=== PATIENT | male | born 1950 | race Caucasian/White ===

== ENCOUNTER 2018-04-27 16:57 | Emergency (ER) | payer OTHER ==
--- OUTSIDE RECORDS SUMMARY | 2018-04-27 17:00 | XMS REPORT | Clinical Summary ---
:1950 Author Organization [facility] Address [address] [place] [address] Care Team Providers Name Role Phone Asked, No Pcp Primary Care Provider Unavailable Allergies No Known Allergies Medications Medication Sig Dispensed Refills Start Date End Date Status aspirin 81 mg Chew 81 mg 0 Active chewable tablet nightly. atorvastatin Take 10 mg by 0 Active (LIPITOR) 10 MG mouth nightly. tablet INVOKANA 100 mg Take 100 mg by 0 10/24/2017 Active tablet tablet mouth daily. gabapentin Take 300 mg by 0 12/11/2017 Active (NEURONTIN) 300 mg mouth 2 (two) capsule times a day. glipiZIDE Take 10 mg by 1 11/20/2017 Active (GLUCOTROL) 10 MG mouth 2 (two) tablet times a day. NIFEdipine CC Take 60 mg by 2 11/02/2017 Active (ADALAT CC) 60 MG mouth daily. 24 hr tablet ramipril (ALTACE) Take 10 mg by 3 10/23/2017 Active 10 MG capsule mouth nightly. sulfamethoxazole-tr Take 1 tablet 3 11/02/2017 Active imethoprim (BACTRIM by mouth 2 SS) 400-80 mg per (two) times a tablet day. insulin GLARGINE Inject 50 0 08/25/2008 Active (LANTUS U-100 Units under INSULIN) 100 the skin 2 unit/mL injection (two) times a (vial) day. insulin lispro Inject 18 0 05/09/2016 Active (HumaLOG KwikPen Units under Insulin) 100 the skin 3 unit/mL injection (three) times pen a day with meals. carvedilol (COREG) Take 25 mg by 3 11/20/2017 12/22/2017 Discontinued 25 MG tablet mouth 2 (two) times a day. carvedilol (COREG) Take 12.5 mg 0 12/22/2017 Discontinued 12.5 MG tablet by mouth 2 (two) times a day. lisinopril Take 10 mg by 0 05/07/2015 12/20/2017 Discontinued (PRINIVIL,ZESTRIL) mouth daily. 10 mg tablet minocycline Take 1 capsule 6 capsule 0 12/22/2017 12/25/2017 (MINOCIN,DYNACIN) (100 mg total) 100 MG capsule by mouth 2 (two) times a day for 6 doses. traMADol (ULTRAM) Take 1 tablet 30 tablet 0 12/22/2017 12/29/2017 50 mg tablet (50 mg total) by mouth every 6 (six) hours as needed for moderate pain for up to 30 doses. carvedilol (COREG) Take 1 tablet 60 tablet 0 12/22/2017 01/21/2018 12.5 MG tablet (12.5 mg total) by mouth 2 (two) times a day for 30 days. Active Problems Problem Noted Date Bradycardia 12/19/2017 Essential hypertension 12/19/2017 Lymphedema of lower extremity 12/19/2017 Bradycardia, drug induced 12/19/2017 Encounters Date Type Specialty Care Team Description 12/21/2017 Surgery Procedural Mir Prakash Insertion Permanent Cardiology , Pacemaker [90159 (CPT)] 12/19/2017 - Hospital Encounter Cardiology Cecilio Bradycardia (Primary Dx); 12/22/2017 Erika O. Sr., Essential hypertension; Lymphedema of both lower extremities; Bradycardia, drug induced 12/19/2017 Intake Access N/A after 04/26/2017 Immunizations Name Dates Previously Given Next Due FLUCELVAX QUAD PF (0.5mL syringe) 12/22/2017 Social History Tobacco Use Types Packs/Day Years Used Date Never Assessed Sex Assigned at Date Recorded Not on file Job Start Date Occupation Industry Not on file Not on file Not on file Travel History Travel Start Travel End No recent travel history available. Last Filed Vital Signs Vital Sign Reading Time Taken Blood Pressure 134/79 12/22/2017 12:29 PM CDT Pulse 70 12/22/2017 12:29 PM CDT Temperature 36 C (96.8 F) 12/22/2017 11:54 AM CDT Respiratory Rate 16 12/22/2017 11:54 AM CDT Oxygen Saturation 93% 12/22/2017 11:54 AM CDT Inhaled Oxygen Concentration - - Weight 166 kg (365 lb) 12/22/2017 5:47 AM CDT Height 180.3 cm (5' 11") 12/19/2017 8:12 PM CDT Body Mass Index 50.91 12/22/2017 5:47 AM CDT Plan of Treatment Health Maintenance Due Date Last Done Comments COLON CANCER SCREENING 2002 SHINGLES VACCINES (1 of 2) 2002 PNEUMOCOCCAL POLYSACCHARIDE VACCINE AGE 65 AND OVER 2017 PNEUMOCOCCAL-13 2017 INFLUENZA VACCINE Completed 12/22/2017 Implants Implanted Type Area Agricultural Equipment Mechanic Device Shelf Model / Identifier Expiration Serial / Date Lot [place] Xt Mri - [id number] Cardiac N/A: [employer] [facility] [id number] / Implanted: 12/21/2017 (Quantity not on file) Pacemaker N/A [employer] / Generators Lead, Pacemaker Atrial And Ventricular 58 Centimeter Capsure Fix Novus System - [id number] Cardiac Pacing N/A: [employer] [facility] 09/25/2019 [id number] / Implanted: 12/21/2017 (Quantity not on file) Leads or N/[employer] [id number] / Electrodes or [id number] Accessories Lead, Pacemaker Bipolar Fix Forming Atrial And Ventricular Steroid Eluting 52 Centimeter Capsure Fix Novus - [id number] Cardiac Pacing N/A: [employer] [facility] 11/01/2019 [id number] / Implanted: 12/21/2017 (Quantity not on file) Leads or N/A [employer] [id number] / Electrodes or [id number] Accessories Procedures Procedure Name Priority Date/Time Associated Comments Diagnosis POC GLUCOSE Routine 12/22/2017 7:47 Results for this AM CDT procedure are in the results section. POC GLUCOSE Routine 12/22/2017 6:55 Results for this AM CDT procedure are in the results section. ECG PRE/POST OP Routine 12/22/2017 6:53 Results for this AM CDT procedure are in the results section. HC COMPLETE BLD COUNT Routine 12/22/2017 5:10 Results for this W/AUTO DIFF AM CDT procedure are in the results section. ESTIMATED GFR Routine 12/22/2017 4:00 Results for this AM CDT procedure are in the results section. BASIC METABOLIC PANEL Routine 12/22/2017 4:00 Results for this AM CDT procedure are in the results section. POC GLUCOSE Routine 12/21/2017 10:03 Results for this PM CDT procedure are in the results section. POC GLUCOSE Routine 12/21/2017 6:06 Results for this PM CDT procedure are in the results section. XR CHEST 1 VW PORTABLE Routine 12/21/2017 4:30 Results for this PM CDT procedure are in the results section. ECG 12-LEAD STAT 12/21/2017 4:12 Results for this PM CDT procedure are in the results section. POC GLUCOSE Routine 12/21/2017 3:46 Results for this PM CDT procedure are in the results section. EP INSERTION PACEMAKER Routine 12/21/2017 3:06 Results for this PULSE GENERATOR PM CDT procedure are in the results section. POC GLUCOSE Routine 12/21/2017 1:05 Results for this PM CDT procedure are in the results section. POC GLUCOSE Routine 12/21/2017 7:22 Results for this AM CDT procedure are in the results section. HC COMPLETE BLD COUNT Routine 12/21/2017 4:15 Results for this W/AUTO DIFF AM CDT procedure are in the results section. ESTIMATED GFR Routine 12/21/2017 4:00 Results for this AM CDT procedure are in the results section. BASIC METABOLIC PANEL Routine 12/21/2017 4:00 Results for this AM CDT procedure are in the results section. POC GLUCOSE Routine 12/20/2017 8:56 Results for this PM CDT procedure are in the results section. POC GLUCOSE Routine 12/20/2017 4:59 Results for this PM CDT procedure are in the results section. POC GLUCOSE Routine 12/20/2017 12:11 Results for this PM CDT procedure are in the results section. ECHOCARDIOGRAM 2D Routine 12/20/2017 10:13 Results for this COMPLETE W MMODE AM CDT procedure are in SPECTRAL COLOR DOPPLER the results (03105) section. US DUPLEX VENOUS LOWER Routine 12/20/2017 9:05 Results for this EXTREMITY BILATERAL AM CDT procedure are in the results section. US CAROTID DUPLEX Routine 12/20/2017 8:23 Results for this BILATERAL AM CDT procedure are in the results section. ECG 12-LEAD Routine 12/20/2017 6:03 Results for this AM CDT procedure are in the results section. HC COMPLETE BLD COUNT Routine 12/20/2017 4:30 Results for this W/AUTO DIFF AM CDT procedure are in the results section. TROPONIN Routine 12/20/2017 4:00 Results for this AM CDT procedure are in the results section. ESTIMATED GFR Routine 12/20/2017 4:00 Results for this AM CDT procedure are in the results section. T4, FREE Routine 12/20/2017 4:00 Results for this AM CDT procedure are in the results section. THYROID STIMULATING Routine 12/20/2017 4:00 Results for this HORMONE AM CDT procedure are in the results section. LIPID PANEL Routine 12/20/2017 4:00 Results for this AM CDT procedure are in the results section. BASIC METABOLIC PANEL Routine 12/20/2017 4:00 Results for this AM CDT procedure are in the results section. URINALYSIS SCREEN AND Routine 12/19/2017 9:45 Results for this MICROSCOPY, WITH REFLEX PM CDT procedure are in TO CULTURE the results section. URINE CULTURE Routine 12/19/2017 9:45 Results for this PM CDT procedure are in the results section. TROPONIN Routine 12/19/2017 8:45 Results for this PM CDT procedure are in the results section. HEMOGLOBIN A1C Routine 12/19/2017 8:45 Results for this PM CDT procedure are in the results section. POC GLUCOSE Routine 12/19/2017 7:28 Results for this PM CDT procedure are in the results section. after 04/26/2017 Results POC glucose (12/22/2017 7:47 AM CDT)Only the most recent of11 resultswithin the time period is included. POC glucose 125 (H) 65 - 99 mg/dL [facility] DEPARTMENT OF PATHOLOGY AND Comment: GENOMIC MEDICINE [facility] Notified RN Meter ID: [id number] Credit Charge Authorizer: Darryl Rawls Performing Organization Address City/State/Zipcode Phone Number [facility] DEPARTMENT OF PATHOLOGY AND [address] [place] [address] [facility] ECG Pre/Post Op-Tomorrow (12/22/2017 6:53 AM CDT) Ventricular rate 70 [facility] Atrial rate 70 [facility] SD interval 196 [facility] QRSD interval 92 [facility] QT interval 426 [facility] QTC interval 460 [facility] P axis 1 50 [facility] QRS axis 1 16 [facility] T wave axis 64 [facility] EKG impression Normal sinus rhythm-Cannot rule out Anterior [facility] MUSE infarct , age undetermined-Abnormal ECG-In automated comparison with ECG of 21-DEC-2017 16:12,-Sinus rhythm has replaced Atrial flutter- Performing Organization Address City/State/Zipcode Phone Number [facility] MUSE [address] [place] [address] CBC with platelet and differential (12/22/2017 5:10 AM CDT)Only the most recent of3 resultswithin the time period is included. WBC 10.97 4.50 - 11.00 k/uL [facility] DEPARTMENT OF PATHOLOGY AND GENOMIC MEDICINE RBC 4.94 4.40 - 6.00 m/uL [facility] DEPARTMENT OF PATHOLOGY AND GENOMIC MEDICINE HGB 12.9 (L) 14.0 - 18.0 g/dL [facility] DEPARTMENT OF PATHOLOGY AND GENOMIC MEDICINE HCT 41.9 41.0 - 51.0 % [facility] DEPARTMENT OF PATHOLOGY AND GENOMIC MEDICINE MCV 84.8 82.0 - 100.0 fL [facility] DEPARTMENT OF PATHOLOGY AND GENOMIC MEDICINE MCH 26.1 (L) 27.0 - 34.0 pg [facility] DEPARTMENT OF PATHOLOGY AND GENOMIC MEDICINE MCHC 30.8 (L) 31.0 - 37.0 g/dL [facility] DEPARTMENT OF PATHOLOGY AND GENOMIC MEDICINE RDW - SD 43.4 37.0 - 55.0 fL [facility] DEPARTMENT OF PATHOLOGY AND GENOMIC MEDICINE MPV 8.7 (L) 8.8 - 13.2 fL [facility] DEPARTMENT OF PATHOLOGY AND GENOMIC MEDICINE Platelet count 248 150 - 400 k/uL [facility] DEPARTMENT OF PATHOLOGY AND GENOMIC MEDICINE Nucleated RBC 0.00 /100 WBC [facility] DEPARTMENT OF PATHOLOGY AND GENOMIC MEDICINE Neutrophils 71.0 (H) 39.0 - 69.0 % [facility] DEPARTMENT OF PATHOLOGY AND GENOMIC MEDICINE Lymphocytes 16.4 (L) 25.0 - 45.0 % [facility] DEPARTMENT OF PATHOLOGY AND GENOMIC MEDICINE Monocytes 8.5 0.0 - 10.0 % [facility] DEPARTMENT OF PATHOLOGY AND GENOMIC MEDICINE Eosinophils 3.3 0.0 - 5.0 % [facility] DEPARTMENT OF PATHOLOGY AND GENOMIC MEDICINE Basophils 0.5 0.0 - 1.0 % [facility] DEPARTMENT OF PATHOLOGY AND GENOMIC MEDICINE Immature granulocytes 0.3Comment: 0.0 - 1.0 % [facility] DEPARTMENT OF "Immature PATHOLOGY AND GENOMIC granulocytes" MEDICINE (promyelocytes, myelocytes, metamyelocytes) Specimen Blood Performing Organization Address City/[facility] Phone Number [facility] DEPARTMENT OF PATHOLOGY AND [address] [place] [phone] Perfect [facility] Estimated GFR (12/22/2017 4:00 AM CDT)Only the most recent of3 resultswithin the time period is included. Estimated GFR >=90 mL/min/1.73 m2 [facility] DEPARTMENT OF Comment: PATHOLOGY AND GENOMIC CatergoryUnitsInterpretation MEDICINE G1 >=90 Normal or high G2 60-89Mildly decreased V5v66-27Yovfjm to moderately decreased A3j41-60Zazjqcwvuf to severely decreased G4 15-29Severely decreased G5 <15Kidney failure The eGFR was calculated using the Chronic Kidney Disease Epidemiology Collaboration (CKD-EPI) equation. Interpretation is based on recommendations of the National Kidney Foundation-Kidney Disease Outcomes Quality Initiative (NKF-KDOQI) published in 2014. Specimen Plasma specimen Performing Organization Address [facility] Phone Number [facility] DEPARTMENT OF PATHOLOGY AND [address] [place] [phone] [facility] Basic metabolic panel (12/22/2017 4:00 AM CDT)Only the most recent of3 resultswithin the time period is included. Sodium 137 135 - 148 mEq/L [facility] DEPARTMENT OF PATHOLOGY AND GENOMIC MEDICINE Potassium 4.3 3.5 - 5.0 mEq/L [facility] DEPARTMENT OF PATHOLOGY AND GENOMIC MEDICINE Chloride 97 (L) 98 - 112 mEq/L [facility] DEPARTMENT OF PATHOLOGY AND GENOMIC MEDICINE CO2 26 24 - 31 mEq/L [facility] DEPARTMENT OF PATHOLOGY AND GENOMIC MEDICINE Anion gap 14@ANIO 7 - 15 mEq/L [facility] DEPARTMENT OF PATHOLOGY AND GENOMIC MEDICINE BUN 11 8 - 23 mg/dL [facility] DEPARTMENT OF PATHOLOGY AND GENOMIC MEDICINE Creatinine 0.80 0.70 - 1.20 mg/dL [facility] DEPARTMENT OF PATHOLOGY AND GENOMIC MEDICINE Glucose 105 (H) 65 - 99 mg/dL [facility] DEPARTMENT OF PATHOLOGY AND GENOMIC MEDICINE Calcium 9.1 8.8 - 10.2 mg/dL [facility] DEPARTMENT OF PATHOLOGY AND GENOMIC MEDICINE Specimen Plasma specimen Performing Organization Address City/[facility] Phone Number [facility] DEPARTMENT OF PATHOLOGY AND [address] [place] [phone] GENOMIC MEDICINE XR Chest 1 Vw Portable (12/21/2017 4:30 PM CDT) Narrative Performed At EXAMINATION:XR CHEST 1 VW PORTABLE [facility] CLINICAL HISTORY:Pneumothorax COMPARISON:None. IMPRESSION: 1.A left subclavian dual-lead pacemaker is present. There is no evidence of pneumothorax. 2.The heart is moderately enlarged. The aorta is atherosclerotic. 3.There is no evidence of pulmonary edema. There are no focal consolidations or effusions. 4.Postoperative changes are present at the cervical thoracic junction. [facility]-[id number] Procedure Note Hm Interface, Radiology Results Incoming - 12/21/2017 4:35 PM CDT EXAMINATION: XR CHEST 1 VW PORTABLE CLINICAL HISTORY: Pneumothorax COMPARISON: None. IMPRESSION: 1. A left subclavian dual-lead pacemaker is present. There is no evidence of pneumothorax. 2. The heart is moderately enlarged. The aorta is atherosclerotic. 3. There is no evidence of pulmonary edema. There are no focal consolidations or effusions. 4. Postoperative changes are present at the cervical thoracic junction. [facility]-[id number] Performing Organization Address [facility] Phone Number [facility] [address] [place] [address] ECG 12 lead (12/21/2017 4:12 PM CDT)Only the most recent of2 resultswithin the time period is included. Ventricular rate 67 [facility] Atrial rate 250 [facility] QRSD interval 90 [facility] QT interval 418 [facility] QTC interval 441 [facility] P axis 1 48 [facility] QRS axis 1 22 [facility] T wave axis 57 [facility] EKG impression Atrial flutter-Abnormal ECG-In automated [facility] MUSE comparison with ECG of 20-DEC-2017 06:03,-Atrial flutter has replaced Sinus rhythm- Performing Organization Address [facility] Phone Number [facility] MUSE [address] [place] [address] Cv electrophysiology procedure (12/21/2017 3:06 PM CDT) Narrative Performed At TITLE OF PROCEDURE: CUPID Dual-chamber pacemaker placement. PREOPERATIVE DIAGNOSES: 1.Symptomatic bradycardia. 2.Morbid obesity. 3.Presyncope and dizziness secondary to #1. POSTOPERATIVE DIAGNOSES: 1.Symptomatic bradycardia. 2.Morbid obesity. 3.Presyncope and dizziness secondary to #1. PROCEDURES PERFORMED: 1.IV conscious sedation. 2.Cardiac fluoroscopy. 3.Left upper extremity venogram. 4.Dual-chamber pacemaker placement. BRIEF HISTORY AND CLINICAL BACKGROUND: This is a 67-year-old man who has profound weakness and dizziness and near syncope.He went to an emergency room where he was documented to have a heart rate in the 30s.He is on no offending medications.He was transferred to [facility] and Dr. Sullivan has asked me to place a pacemaker. PROCEDURE: Informed consent was obtained.Intravenous antibiotics were infused appropriately.The chest was prepped and draped in the usual sterile fashion and local anesthesia was achieved with 1% lidocaine.An upper extremity venogram was performed to identify the location of the axillary and subclavian vein and access was achieved.Guide wires were introduced under fluoroscopic guidance and advanced into the inferior vena cava. Using a sharp knife, cautery, and blunt dissection, a pocket was formed below the plane of the pectoralis fascia.The RV and atrial leads were placed into the venous system using standard technique.The RV pace/sense lead was placed into the RV apex and tested.After the thresholds were deemed adequate the lead was anchored in place.Maximum output pacing was performed to ensure that there was no diaphragmatic stimulation, and none was seen.The lead was anchored in place using 0-Ethibond sutures around the lead collar. A bipolar screw-in lead was affixed into the right atrium.Sensing and pacing thresholds were then performed.After they were found to be adequate, maximum output pacing was performed to ensure that there was no diaphragmatic stimulation, and none was seen.The lead was anchored in place using 0-Ethibond sutures around the lead collar. Fluoroscopy was repeated to ensure proper lead placement.The pacemaker pocket was visually, manually, and radiographically inspected to ensure there were no gauze or sponges in the pocket.It was then washed using antibiotic solution. Gloves and drapes were changed as needed.The pacemaker generator packet was then opened and was attached to the leads and the set screws were tightened. Each lead was gently tugged upon to ensure it was affixed within the header. After proper pacemaker function was confirmed, the lead slack and pacemaker were placed in the pocket.The pacemaker was anchored to the pectoralis muscle using 0-Ethibond suture.The skin incision was then closed in layers using 0-Vicryl sutures.Final skin closure was achieved with stainless steel joshua and skin adhesive. COMPLICATIONS: None. FINDINGS: 1.The pacemaker is a Medtronic [place]-XT model [id number], serial #[id number]. 2.The right atrial lead is a Medtronic 5076, serial #[id number], measured P-waves 2.4 mV, pacing threshold 1 V at 0.5 msec, current 2.7 mA, impedance 580 ohms. 3.The ventricular lead is a Medtronic 5076, serial #[id number], measured R-waves 14 mV, pacing threshold 0.5 V, current 1.4 mA, impedance 679 ohms. ESTIMATED BLOOD LOSS: Less than 10 mL SEDATION: IV conscious sedation. MEDICATIONS: 1.Versed. 2.Fentanyl. CONCLUSIONS: Successful dual-chamber pacemaker placement. RECOMMENDATIONS: IV antibiotics at home per Dr. Sullivan and Dr. Mena. Performing Organization Address City/State/Zipcode Phone Number [employer] [address] [place] [address] Echocardiogram complete w contrast and 3D if needed (12/20/2017 10:13 AM CDT) Narrative Performed At [facility] Echocardiography Report [address] [place] [address] Pat.Name:MARC TOLLIVER [facility].ID:[id number] .Date: 12/20/2017 Refer.MD:ERIKA MENA MD Exam Time: 9:02:00 AMStudy Type:Routine Echo Height:71inWeight: 377lb BSA: 2.76 m2 DOBAge:1950,67Y Sex: MALEBP:173/82 Sonogrphr: DOMINIC MARIE, RDMARILU, LAUREN/Lexa Chance MD Pat. Stat.:Inpatient Study Status:Final Echo Event ID:[id number] Order ID:[id number] Reason for Study:SOB, suspected cardiac etiology Procedures:2D Echo, Colorflow Doppler, Intravenous Definity Contrast Race: SUMMARY: Normal biventricular chamber size and systolic function Diastolic dysfunction Grade II (Moderate): Impaired relaxation with elevated LV filling pressures. No hemodynamically significant valvular pathology. Estimated PA systolic pressure is 38 mmHg, assuming a mean RAP of 5 mmHg. FINDINGS: LV: LV size is normal. LV EF is normal. Overall wall motion is normal.Estimated EF is 60-64%. RV: RV size is normal. RV systolic function is normal. LA: LA size is normal. RA: RA size is normal. AO: Aortic root diameter is normal. RAYRAY: No pericardial effusion. There is an anterior space consistentwith a prominent epicardial fat pad. AV: No structural AV abnormalities noted. MV: Thickened and/or calcified mitral annulus. PV: Pulmonic valve not well seen. Mild pulmonic regurgitation. TV: No structural TV abnormalities noted. [place]: Diastolic dysfunction Grade II (Moderate): Impaired relaxationwith elevated LV filling pressures. Other:Estimated PA systolic pressure is 38 mmHg, assuming a mean RAPof 5 mmHg. MEASUREMENTS: 2D Parasternal [place] LVOT 2 cmIVSd 1.2 cm Ao An1.9 cmLVPWd1.2 cm Ao Rtd 3.2 cmIndex1.2 cm/m LV Kkdi286 g(122-174) LVIDd5.4 cmIndex2 cm/m LVM Index 97.1 g/m2 LVIDs3.6 cmRWT0.4 LV%fs 32.8 % LA Sng Plane LA Area 24.7 cm2(8.8-23.4) LA Vol80.5 ml Index29.2 ml/m LA LngAx 6.4 cm DOPPLER LVOT Stroke Vol LVOT 2 cmLVOT CO4.4 l/min LVOT TVI23.5 cmLVOT CI1.6 l/m/m2 LVOT Tm371 inwwCC69 bpm LVOT SV 73.8 ml Signed 12/20/2017 10:56 AM Tatiana Zaman MD Procedure Note Interface, Radiology Results In - 12/20/2017 10:57 AM CDT Echocardiography Report [address] [address], [place] [address] Pat.Name: MARC TOLLIVER Pat.ID: [id number] .Date: 12/20/2017 Refer.MD: ERIKA MENA MD Exam Time: 9:02:00 AM Study Type:Routine Echo Height: 71in Weight: 377lb BSA: 2.76 m2 Age: 14 1950,67Y Sex: MALE BP: 173/82 Sonogrphr: DOMINIC MARIE, RD, LAUREN/Lexa Chance MD Pat. Stat.:Inpatient Study Status:Final Echo Event ID:[id number] Order ID: [id number] Reason for Study:SOB, suspected cardiac etiology Procedures:2D Echo, Colorflow Doppler, Intravenous Definity Contrast Race: SUMMARY: Normal biventricular chamber size and systolic function Diastolic dysfunction Grade II (Moderate): Impaired relaxation with elevated LV filling pressures. No hemodynamically significant valvular pathology. Estimated PA systolic pressure is 38 mmHg, assuming a mean RAP of 5 mmHg. FINDINGS: LV: LV size is normal. LV EF is normal. Overall wall motion is normal. Estimated EF is 60-64%. RV: RV size is normal. RV systolic function is normal. LA: LA size is normal. RA: RA size is normal. AO: Aortic root diameter is normal. RAYRAY: No pericardial effusion. There is an anterior space consistent with a prominent epicardial fat pad. AV: No structural AV abnormalities noted. MV: Thickened and/or calcified mitral annulus. PV: Pulmonic valve not well seen. Mild pulmonic regurgitation. TV: No structural TV abnormalities noted. [place]: Diastolic dysfunction Grade II (Moderate): Impaired relaxation with elevated LV filling pressures. Other: Estimated PA systolic pressure is 38 mmHg, assuming a mean RAP of 5 mmHg. MEASUREMENTS: 2D Parasternal Long [place] LVOT 2 cm IVSd 1.2 cm Ao An 1.9 cm LVPWd 1.2 cm Ao Rtd 3.2 cm Index 1.2 cm/m LV Mass 268 g (122-174) LVIDd 5.4 cm Index 2 cm/m LVM Index 97.1 g/m2 LVIDs 3.6 cm RWT 0.4 LV%fs 32.8 % LA Sng Plane LA Area 24.7 cm2 (8.8-23.4) LA Vol 80.5 ml Index 29.2 ml/m LA LngAx 6.4 cm DOPPLER LVOT Stroke Vol LVOT 2 cm LVOT CO 4.4 l/min LVOT TVI 23.5 cm LVOT CI 1.6 l/m/m2 LVOT Tm 371 msec HR 59 bpm LVOT SV 73.8 ml Signed 12/20/2017 10:56 AM Tatiana Zaman MD Performing Organization Address City/State/Zipcode Phone Number [facility] [address] [place] [address] Pv duplex venous lower extremity (12/20/2017 9:05 AM CDT) Narrative Performed At [facility] Vascular Ultrasound Laboratory Lower Extremity Venous Report [id number] [address] [facility].Name:MARC TOLLIVER [id number] .Date: 12/20/2017 Refer.MD:TATIANA SULLIVAN MD Exam Time: 8:26:00 AMStudy Type:LE Venous Height:71inWeight: 377lb BSA: 2.76 m2 DOBAge:1950,67Y Sex: MALEBP:176/89 Sonogrphr: Nishi Jewell RDCS, RVT Pat. Stat.:Inpatient Room:[facility] ATapeVol: ED, CPT - 4: 35801 Echo Event ID:[id number] Order ID:[id number] Reason for Study:Leg edema History / Clinical:Obesity, Lymphedema, Colon Ca, S/p resection, H/o left legvein excision 1979, HTN, HLD, DM Procedures:Colorflow, Grayscale/2D, Pulsed wave Doppler Race:C SUMMARY: * Normal Reflux Criteria:< 0.5 seconds * Abnormal Reflux Criteria:> or equal to 0.5 seconds DUPLEX SCAN OBSERVATIONS Deep VeinsSuperficial Veins RightLeft RightLeft GSV (prox) NormalSurgically Removed CFV Normal Normal (above knee) Femoral Normal Normal GSV (dist) Normal Surgically Removed Profunda Normal Normal (below knee) Popliteal Normal Normal PT (prox) Normal NormalSSV Chronic partial Not Visualized PT (dist) Normal Normal Peroneal Not Visualized Normal RIGHT:There is a bright strand in the small saphenous vein with Colorflow and Doppler signals present. There is normal compressibility with no evidence of echogenic material noted within the lumen of the remaining visualized veins. LEFT: There is normal compressibility with no evidence of echogenic material noted within the lumen of the visualized veins. Colorflow and Doppler signals are normal. PRELIMINARY FINDINGS 1. Chronic partial superficial venous thrombosis of the right small saphenous vein. 2. The results were reported to CHRIS Hudson @9:15 am PHYSICIAN INTERPRETATION Venous examination of the both lower extremities demonstrated chronic partial superficial venous thrombosis of the right small saphenous vein. Signed 12/20/2017 12:04 PM Braulio Hall MD, RPVI Procedure Note Interface, Radiology Results In - 12/20/2017 12:04 PM CDT Vascular Ultrasound Laboratory Lower Extremity Venous Report [address] [place] [address] Pat.Name: MARC TOLLIVER Pat.ID: [id number] .Date: 12/20/2017 Refer.MD: TATIANA SULLIVAN MD Exam Time: 8:26:00 AM Study Type:LE Venous Height: 71in Weight: 377lb BSA: 2.76 m2 Age: 14 1950,67Y Sex: MALE BP: 176/89 Sonogrphr: Nishi Jewell RDCS, RVT Pat. Stat.:Inpatient Room: [facility] Vol: ED, CPT - 4: 94406 Echo Event ID:[id number] Order ID: [id number] Reason for Study:Leg edema History / Clinical:Obesity, Lymphedema, Colon Ca, S/p resection, H/o left leg vein excision 1978, HTN, HLD, DM Procedures:Colorflow, Grayscale/2D, Pulsed wave Doppler Race: C SUMMARY: * Normal Reflux Criteria: < 0.5 seconds * Abnormal Reflux Criteria: > or equal to 0.5 seconds DUPLEX SCAN OBSERVATIONS Deep Veins Superficial Veins Right Left Right Left GSV (prox) Normal Surgically Removed CFV Normal Normal (above knee) Femoral Normal Normal GSV (dist) Normal Surgically Removed Profunda Normal Normal (below knee) Popliteal Normal Normal PT (prox) Normal Normal SSV Chronic partial Not Visualized PT (dist) Normal Normal Peroneal Not Visualized Normal RIGHT: There is a bright strand in the small saphenous vein with Colorflow and Doppler signals present. There is normal compressibility with no evidence of echogenic material noted within the lumen of the remaining visualized veins. LEFT: There is normal compressibility with no evidence of echogenic material noted within the lumen of the visualized veins. Colorflow and Doppler signals are normal. PRELIMINARY FINDINGS 1. Chronic partial superficial venous thrombosis of the right small saphenous vein. 2. The results were reported to CHRIS Hudson @9:15 am PHYSICIAN INTERPRETATION Venous examination of the both lower extremities demonstrated chronic partial superficial venous thrombosis of the right small saphenous vein. Signed 12/20/2017 12:04 PM Braulio Hall MD, RPVI Performing Organization Address City/State/Zipcode Phone Number [facility] [address] [place] [address] Pv carotid duplex (12/20/2017 8:23 AM CDT) Narrative Performed At [facility] Vascular Ultrasound Laboratory Carotid Artery Duplex Report [address] [place] [address] For construction quality control manager purposes, the categorization of the degree of the stenosis of this exam is based on criteria described in the IAC carotid stenosis grading white paper( www.intersocietal.org/Vascular) and Lauri Barba, Gael Richardson, et al. Carotid artery stenosis: pool-scale and Doppler US diagnosis--Society of Radiologists in Ultrasound Consensus Conference. Radiology. 2003 Jan; 229(2):340-6. Pat.Name:MARC TOLLIVER [facility]:[id number] .Date: 12/20/2017 Refer.MD:TATIANA SULLIVAN MD Exam Time: 7:44:00 AMStudy Type:Carotid Height:71inWeight: 377lb BSA: 2.76 m2 DOBAge:1950,67Y Sex: MALEBP:176/89 Sonogrphr: Nishi Jewell RDCS, RVT Pat. Stat.:Inpatient Room:[facility] ATapeVol: ED, CPT - 4: 76682 Echo Event ID:[id number] Order ID:[id number] Reason for Study:Dizziness History / Clinical:Obesity, Lymphedema, Colon Ca, S/p resection, H/o left legvein excision 1979, HTN, HLD, DM Procedures:Colorflow, Grayscale/2D, Pulsed wave Doppler Race:C SUMMARY: PHYSICAL ASSESSMENT BloodPulsesCarotid Pressure Carotid TemporalBruit Right IV ++0 Left 176/89 ++0 CAROTID ARTERY SCAN RIGHT:There is smooth intimal lining in the common carotid artery. There is focal hard plaque noted in the bulb. The internal and external carotid artery is clear. LEFT: There is smooth intimal lining in the common carotid artery. There is focal hard plaque noted in the bulb extending into the proximal internal carotid artery. The external carotid artery is clear. PRELIMINARY FINDINGS 1. Non-stenotic plaque in the rightbulb. 2. <50%stenosis in the bulb and left internal carotid artery. 3. Antegrade vertebral artery flow bilaterally. PHYSICIAN INTERPRETATION Bilateral carotid duplex examination demonstrated atherosclerotic plaques in the bulbs. Less than 50% stenosis in the bulb and internal carotid artery, bilaterally. Both vertebral arteries are antegrade. Carotid Findings:RightLeft Verteb.Flw AntegradeAntegrade Subclavian TriphasicTriphasic MEASUREMENTS: DOPPLER Left CCA Dist CCA Dist PSV56.3 cm/sCCA Dist EDV12.3 cm/s Left CCA Mid CCA Mid PSV 63.3 cm/sCCA Mid EDV 12.9 cm/s Left CCA Prox CCA Prox PSV86.8 cm/sCCA Prox EDV14.1 cm/s Left ICA Dist ICA Dist PSV91.2 cm/Rehan Dist EDV35.6 cm/s Left ICA Mid ICA Mid PSV 83.9 cm/Rehan Mid EDV 26.4 cm/s Left ICA Prox ICA Prox PSV66.8 cm/Rehan Prox EDV19.3 cm/s Left ECA Prox ECA Prox PSV76.8 cm/sECA Prox EDV6.45 cm/s Left SCA Prox SCA Prox PSV 112 cm/s Left Vertebral Vertebral PSV 44.2 cm/sVertebral EDV 19.2 cm/s Right CCA Dist CCA Dist PSV68 cm/sCCA Dist EDV10.6 cm/s Right CCA Mid CCA Mid PSV 69.8 cm/sCCA Mid EDV 12.9 cm/s Right CCA Prox CCA Prox PSV80.9 cm/sCCA Prox EDV11.7 cm/s Right ICA Dist ICA Dist PSV77.5 cm/Rehan Dist EDV20.1 cm/s Right ICA Mid ICA Mid PSV 72.2 cm/Rehan Mid EDV 21.8 cm/s Right ICA Prox ICA Prox PSV59.8 cm/Rehan Prox EDV19.9 cm/s Right ECA Prox ECA Prox PSV82.7 cm/sECA Prox EDV5.86 cm/s Right SCA Prox SCA Prox PSV 116 cm/s Right Vertebral Vertebral PSV 39.7 cm/sVertebral EDV 11.6 cm/s Right ICA/CCA Ratio ICA/CCA PSV0.857 Left ICA/CCA Ratio ICA/CCA PSV 1.06 Signed 12/21/2017 12:06 AM Braulio Hall MD, RPVI Procedure Note Interface, Radiology Results In - 12/21/2017 12:07 AM CDT Vascular Ultrasound Laboratory Carotid Artery Duplex Report [address] [place] [address] For construction quality control manager purposes, the categorization of the degree of the stenosis of this exam is based on criteria described in the IAC carotid stenosis grading white paper( www.intersocietal.org/Vascular) and Marysol Barba., Jesse RichardsonB., et al. Carotid artery stenosis: pool-scale and Doppler US diagnosis--Society of Radiologists in Ultrasound Consensus Conference. Radiology. 2003 Nov; 229(2):340-6. Pat.Name: MARC TOLLIVER Pat.ID: [id number] .Date: 12/20/2017 Refer.MD: TATIANA SULLIVAN MD Exam Time: 7:44:00 AM Study Type:Carotid Height: 71in Weight: 377lb BSA: 2.76 m2 Age: 14 1950,67Y Sex: MALE BP: 176/89 Sonogrphr: Nishi Jewell RDCS, RVT Pat. Stat.:Inpatient Room: [address] Vol: ED, CPT - 4: 89984 Echo Event ID:[id number] Order ID: [id number] Reason for Study:Dizziness History / Clinical:Obesity, Lymphedema, Colon Ca, S/p resection, H/o left leg vein excision 1979, HTN, HLD, DM Procedures:Colorflow, Grayscale/2D, Pulsed wave Doppler Race: C SUMMARY: PHYSICAL ASSESSMENT Blood Pulses Carotid Pressure Carotid Temporal Bruit Right IV + + 0 Left 176/89 + + 0 CAROTID ARTERY SCAN RIGHT: There is smooth intimal lining in the common carotid artery. There is focal hard plaque noted in the bulb. The internal and external carotid artery is clear. LEFT: There is smooth intimal lining in the common carotid artery. There is focal hard plaque noted in the bulb extending into the proximal internal carotid artery. The external carotid artery is clear. PRELIMINARY FINDINGS 1. Non-stenotic plaque in the right bulb. 2. <50% stenosis in the bulb and left internal carotid artery. 3. Antegrade vertebral artery flow bilaterally. PHYSICIAN INTERPRETATION Bilateral carotid duplex examination demonstrated atherosclerotic plaques in the bulbs. Less than 50% stenosis in the bulb and internal carotid artery, bilaterally. Both vertebral arteries are antegrade. Carotid Findings: Right Left Verteb.Flw Antegrade Antegrade Subclavian Triphasic Triphasic MEASUREMENTS: DOPPLER Left CCA Dist CCA Dist PSV 56.3 cm/s CCA Dist EDV 12.3 cm/s Left CCA Mid CCA Mid PSV 63.3 cm/s CCA Mid EDV 12.9 cm/s Left CCA Prox CCA Prox PSV 86.8 cm/s CCA Prox EDV 14.1 cm/s Left ICA Dist ICA Dist PSV 91.2 cm/s ICA Dist EDV 35.6 cm/s Left ICA Mid ICA Mid PSV 83.9 cm/s ICA Mid EDV 26.4 cm/s Left ICA Prox ICA Prox PSV 66.8 cm/s ICA Prox EDV 19.3 cm/s Left ECA Prox ECA Prox PSV 76.8 cm/s ECA Prox EDV 6.45 cm/s Left SCA Prox SCA Prox PSV 112 cm/s Left Vertebral Vertebral PSV 44.2 cm/s Vertebral EDV 19.2 cm/s Right CCA Dist CCA Dist PSV 68 cm/s CCA Dist EDV 10.6 cm/s Right CCA Mid CCA Mid PSV 69.8 cm/s CCA Mid EDV 12.9 cm/s Right CCA Prox CCA Prox PSV 80.9 cm/s CCA Prox EDV 11.7 cm/s Right ICA Dist ICA Dist PSV 77.5 cm/s ICA Dist EDV 20.1 cm/s Right ICA Mid ICA Mid PSV 72.2 cm/s ICA Mid EDV 21.8 cm/s Right ICA Prox ICA Prox PSV 59.8 cm/s ICA Prox EDV 19.9 cm/s Right ECA Prox ECA Prox PSV 82.7 cm/s ECA Prox EDV 5.86 cm/s Right SCA Prox SCA Prox PSV 116 cm/s Right Vertebral Vertebral PSV 39.7 cm/s Vertebral EDV 11.6 cm/s Right ICA/CCA Ratio ICA/CCA PSV 0.857 Left ICA/CCA Ratio ICA/CCA PSV 1.06 Signed 12/21/2017 12:06 AM Braulio Hall MD, RPVI Performing Organization Address [facility] Phone Number [facility] [address] [place] [address] Troponin (12/20/2017 4:00 AM CDT)Only the most recent of2 resultswithin the time period is included. Troponin <0.30 0.00 - 0.30 ng/mL [facility] DEPARTMENT OF PATHOLOGY Comment: AND GENOMIC MEDICINE 0.30 - 1.49 ng/mlMay indicate increased risk of acute coronary syndrome. >=1.5 ng/mlConsistent with acute myocardial infarction. The diagnostic value of a single normal or non-diagnostic result is questionable.Serial samples at 2-6 hour intervals are required to rule out acute myocardial injury. Specimen Plasma specimen Performing Organization Address [facility] Phone Number [facility] DEPARTMENT OF PATHOLOGY AND [address] [place] [address] GENOMIC MEDICINE Thyroid stimulating hormone (12/20/2017 4:00 AM CDT) TSH 1.98 0.27 - 4.20 uIU/mL [facility] DEPARTMENT OF PATHOLOGY AND GENOMIC MEDICINE Specimen Plasma specimen Performing Organization Address City/[facility] Phone Number [facility] DEPARTMENT OF PATHOLOGY AND [address] [place] [phone] [place] [address] T4, free (12/20/2017 4:00 AM CDT) T4, free 1.2 0.9 - 1.7 ng/dL [facility] DEPARTMENT OF PATHOLOGY AND GENOMIC MEDICINE Specimen Plasma specimen Performing Organization Address City/[facility] Phone Number [facility] DEPARTMENT OF PATHOLOGY AND [address] [place] [phone] [place] [address] Lipid panel (12/20/2017 4:00 AM CDT) Cholesterol 157 <200 mg/dL [facility] DEPARTMENT OF PATHOLOGY AND GENOMIC MEDICINE Triglycerides 132 <150 mg/dL [facility] DEPARTMENT OF PATHOLOGY AND GENOMIC MEDICINE HDL cholesterol 29 (L) >40 mg/dL [facility] DEPARTMENT OF PATHOLOGY AND GENOMIC MEDICINE LDL cholesterol 105 (H)Comment: Result <100 mg/dL [facility] DEPARTMENT OF obtained by direct LDL PATHOLOGY AND GENOMIC measurement MEDICINE Lipid panel interpretation SeeBelow [facility] DEPARTMENT OF Comment: PATHOLOGY AND GENOMIC Total Cholesterol (mg/dL) MEDICINE <200 Desirable 622-245Tsszitmlmk-epia >=240High Triglycerides (mg/dL) <150 Normal [id number]-udtx 200-499High >=500Very high HDL Cholesterol (mg/dL) <40Low (male) <40Low (female) LDL Cholesterol (mg/dL) <100 Optimal 100-129Near or above optimal 001-289Iwzgxvailv-xfsu 160-189High >=190Very high Risk Catergories that modify LDL goals. Risk CatergoriesLDL goal (mg/dL) CHD and CHD risk equivalent<100 (10-year risk >20%) Multiple (2+) risk factors <130 (10-year risk=<20%) 0-1 risk factors <160 (<10-year risk) Defining levels of lipids in metabolic syndrome Triglycerides>=150 mg/dL HDL Cholesterol Men<40 mg/dL Women<40 mg/dL Non-HDL cholesterol is a second target for therapy in persons with high triglycerides (>=200 mg/dL) Specimen Plasma specimen Performing Organization Address City/[facility] Phone Number [facility] DEPARTMENT OF PATHOLOGY AND [address] [place] [phone] [facility] Urinalysis screen and microscopy, with reflex to culture (12/19/2017 9:45 PM CDT) Specimen site Clean catch [facility] DEPARTMENT OF PATHOLOGY AND GENOMIC MEDICINE Color, UA Straw [facility] DEPARTMENT OF PATHOLOGY AND GENOMIC MEDICINE Appearance, UA Clear [facility] DEPARTMENT OF PATHOLOGY AND GENOMIC MEDICINE Specific gravity, UA 1.012 1.001 - 1.035 [facility] DEPARTMENT OF PATHOLOGY AND GENOMIC MEDICINE pH, UA 6.0 5.0 - 8.5 [facility] DEPARTMENT OF PATHOLOGY AND GENOMIC MEDICINE Protein, UA Negative Negative [facility] DEPARTMENT OF PATHOLOGY AND GENOMIC MEDICINE Glucose, UA 3+ (A) Negative [facility] DEPARTMENT OF PATHOLOGY AND GENOMIC MEDICINE Ketones, UA Negative Negative [facility] DEPARTMENT OF PATHOLOGY AND GENOMIC MEDICINE Bilirubin, UA Negative Negative [facility] DEPARTMENT OF PATHOLOGY AND GENOMIC MEDICINE Blood, UA Negative Negative [facility] DEPARTMENT OF PATHOLOGY AND GENOMIC MEDICINE Nitrite, UA Negative Negative [facility] DEPARTMENT OF PATHOLOGY AND GENOMIC MEDICINE Urobilinogen, UA 4.0 (A) <2.0 [facility] DEPARTMENT OF PATHOLOGY AND GENOMIC MEDICINE Leukocyte esterase, UA Negative Negative [facility] DEPARTMENT OF PATHOLOGY AND GENOMIC MEDICINE Epithelial cells, UA <1 /HPF [facility] DEPARTMENT OF PATHOLOGY AND GENOMIC MEDICINE WBC, UA <1 0 - 1 /HPF [facility] DEPARTMENT OF PATHOLOGY AND GENOMIC MEDICINE RBC, UA <1 0 - 5 /HPF [facility] DEPARTMENT OF PATHOLOGY AND GENOMIC MEDICINE Bacteria, UA Few None seen [facility] DEPARTMENT OF PATHOLOGY AND GENOMIC MEDICINE Yeast, UA None seen [facility] DEPARTMENT OF PATHOLOGY AND GENOMIC MEDICINE Yeast with pseudohyphae, UA None seen [facility] DEPARTMENT OF PATHOLOGY AND GENOMIC MEDICINE Specimen Urine Performing Organization Address City/[facility]/Zipcode Phone Number [facility] DEPARTMENT OF PATHOLOGY AND [address] [place] [phone] [facility] MEDICINE Urine culture (12/19/2017 9:45 PM CDT) Urine culture SEE COMMENTComment: Bacteriuria [facility] DEPARTMENT OF PATHOLOGY screen negative. AND GENOMIC MEDICINE Performing Organization Address City/[facility]/Zipcode Phone Number [facility] DEPARTMENT OF PATHOLOGY AND [address] [place] [id number] [facility] Hemoglobin A1c (12/19/2017 8:45 PM CDT) Hemoglobin A1C 7.2 (H) 4.0 - 5.6 % [facility] DEPARTMENT OF PATHOLOGY Comment: AND GENOMIC MEDICINE HbA1c cutoffs for diagnosing diabetes: 4.0% - 5.6%=normal 5.7% - 6.4%=increased risk for diabetes (prediabetes) >=6.5%=diabetes Goals for glycemic control (ADA 2016) < 7.0%Target for non adults with diabetes. More or less stringent targets may be appropriate for individual patients. <7.5% Target for Children and adolescents with type 1 diabetes. Specimen Blood Performing Organization Address City/State/Zipcode Phone Number [facility] DEPARTMENT OF PATHOLOGY AND [address] [place] [address] GENOMIC MEDICINE after 04/26/2017 Insurance Payer Benefit Plan / Group Subscriber ID Type Phone Address AETNA AETNA HMO,POS,EPO, MC/EC xxxxxxxxxx HMO ([place]) [place] [address] Advance Directives For more information, please contact:Ed Linder[address] [place] [address] Code Status Date Activated Date Inactivated Comments Full Code 12/19/2017 9:12 PM 12/22/2017 5:14 PM Code Status decision reached by: Patient
[2018-04-27 18:06] LABS: Urine Blood NEGATIVE (NEG); Urine Glucose 1+ (NEG); Urine Protein 2+ (NEG)
[2018-04-27 18:08] LABS: Absolute Lymphocytes (CBC) 1.1 K/uL (0.7-4.9); Absolute Monocytes 1.1 K/uL (0.1-1.3); Basophils % 1.1 % (0-1.3); Eosinophils % 1.8 % (0-4.4); Hematocrit 36.5 % (39.6-49.0); Lymphocytes % 10.3 % (15.3-44.8); Monocytes % 10.1 % (3.3-12.3); RBC Red Blood Cell Count 4.36 M/uL (4.33-5.43)
[2018-04-27 18:14] LABS: Protime INR 1.16
[2018-04-27 18:32] LABS: Albumin 2.9 g/dL (3.4-5.0); Bilirubin Direct 6.1 mg/dL (0-0.2); Potassium 3.7 mmol/L (3.5-5.1); Protein, Total 7.8 g/dL (6.4-8.2)
--- NOTE | 2018-04-27 19:20 | RAD REPORT ---
EXAM DESCRIPTION: CT - Abdomen Pelvis W Contrast - 04/27/2018 6:55 pm CLINICAL HISTORY: Abdominal pain, right lower quadrant pain, history of recent UTI diagnosis, prior colon resection COMPARISON: None. TECHNIQUE: Biphasic, helical CT imaging of the abdomen and pelvis was performed following 100 ml non -ionic IV contrast. No oral contrast. All CT scans are performed using dose optimization technique as appropriate and may include automated exposure control or mA/KV adjustment according to patient size. FINDINGS: No acute finding in the pleura or parenchyma of the lung bases. No pericardial thickening or effusion. Patient has a 4.0 x 2.6 centimeter mass in the anterior right pericardial fat. There is a 15 millimeter mass in the posterior right pericardial fat. Liver is abnormal. In the midline left lobe of the liver there is a 6.6 x 3.8 centimeter poorly maria e cated area of diminished density. In the anterior right lobe overlapping segment IV and VIII there is a very poorly demarcated 9 x 6 centimeter area of diminished attenuation. In segment V anterior live r there is a 10 x 6 cm area of poorly demarcated diminished attenuation. An 18 millimeter round low-d ensity focus is seen subcapsular lateral right lobe segment VIII. This could be a complex primary iwona er malignancy for multiple metastatic lesions. No spleen or pancreatic abnormality. Cholecystectomy clips are present. No biliary tree dilatation. Symmetric renal function is seen with no hydronephrosis or suspicious renal mass. No pyelonephritis o r acute parenchymal process. Urinary bladder is contracted limiting detail. Prostate gland and semina l vesicles are normal range. No adrenal abnormalities. Gastric surgical changes are noted with no acute stomach finding. No acute large or small bowel findi ng. Sigmoid anastomotic site shows no acute finding. No free air, free fluid or inflammatory strandi ng. Small periportal and peripancreatic lymph nodes are present. No bulky periaortic lymphadenopathy . There are few small aorto iliac chain lymph nodes. Nonspecific small inguinal lymph nodes are prese nt. No omental thickening. Patient has multiple small hernia defects from the xiphoid to the umbilical le joe. Along the left inferior margin of the umbilicus there is a large 10 centimeter fat only hernia. Neck is 4 cm. Disc and bony degenerative changes are present. IMPRESSION: Multiple large poorly demarcated lesions throughout the liver parenchyma which could be primary or metastatic. Patient has numerous periportal/ peripancreatic lymph nodes. Malignant-appearing lymph nodes in the right side pericardial fat. No pancreatic primary mass identifiable. No other acute finding of the solid abdominal visceral. A few small nonspecific aorto iliac lymph nodes seen. No acute GI process. No acute process. Multiple ventral hernias between the xiphoid and the umbilicus. There is a large 10 centimeter fat on ly hernia left inferior umbilical level.
--- NOTE | 2018-04-27 20:00 | EDPHYS ---
Physician Documentation [facility] Name: Hill Tolliver Age: 68 yrs Sex: Male : 1950 Arrival Date: 04/27/2018 Time: 17:00 Bed 27 Private MD: Amol Massey ED Physician [place] Galvan HPI: 04/27 17:44 This 68 yrs old Male presents to ER via Ambulatory with complaints of jmm Jaundice, Urinary Problem. 17:44 The patient presents with abdominal pain that is diffuse. Onset: The symptoms/episode jmm began/occurred gradually, 3 day(s) ago. The symptoms do not radiate. Associated signs and symptoms: Pertinent positives: dysuria. This is a 68 year old male with a history of DM, HTN, colon cancer, lymphadema that presents to the ED with abdominal pain, dark urine, and yellowing skin for the past 3 days. Patient states having previous diagnosis of hepatitis. . Historical: - Allergies: 17:17 No Known Allergies; sg - Home Meds: 17:17 BP medication 12.5 mg [Active]; sg 18:28 nifedipine 60 mg Oral TbER [Active]; sulfamethoxazole-trimethoprim 400-80 mg Oral tab rv [Active]; carvedilol 12.5 mg oral tab [Active]; gabapentin 300 mg oral cap [Active]; glipizide 10 mg Oral tab [Active]; Invokana 100 mg oral tab [Active]; - PMHx: 17:17 Hernia; Diabetes - NIDDM; Hypertension; Colon Cancer; Lymphedema; sg - PSHx: 17:17 Colon Resection; sg 18:41 Cholecystectomy; sg - Immunization history:: Adult Immunizations up to date. - Social history:: Smoking status: Patient/guardian denies using tobacco. - Ebola Screening: : Patient negative for fever greater than or equal to 101.5 degrees Fahrenheit, and additional compatible Ebola Virus Disease symptoms Patient denies exposure to infectious person Patient denies travel to an Ebola-affected area in the 21 days before illness onset No symptoms or risks identified at this time. ROS: 17:44 Constitutional: Negative for fever, chills, and weight loss, Cardiovascular: Negative jmm for chest pain, palpitations, and edema, Respiratory: Negative for shortness of breath, cough, wheezing, and pleuritic chest pain. 17:44 Abdomen/GI: Positive for abdominal pain. 17:44 Skin: Positive for jaundice. 17:44 All other systems are negative. Exam: 17:44 Constitutional: This is a well developed, well nourished patient who is awake, alert, jmm and in no acute distress. Head/Face: atraumatic. Chest/axilla: Normal chest wall appearance and motion. Cardiovascular: Regular rate and rhythm. No edema appreciated Respiratory: Normal respirations, no respiratory distress appreciated 17:44 Back: Normal ROM MS/ Extremity: Moves all extremities, no obvious deformities appreciated, no edema noted to the lower extremities Neuro: Awake and alert, normal gait Psych: Behavior is normal, Mood is normal, Patient is cooperative and pleasant 17:44 Eyes: Sclera: icterus, is present. 17:44 Abdomen/GI: Inspection: obese Bowel sounds: normal, Palpation: soft, mild abdominal tenderness, in all quadrants. 17:44 Back: ROM is normal. 17:44 Musculoskeletal/extremity: ROM: intact in all extremities. 17:44 Skin: Appearance: Color: jaundiced. Vital Signs: 17:15 BP 156 / 81; Pulse 69; Resp 19; Temp 99.0; Pulse Ox 96% on R/A; Weight 154.22 kg; sg Height 5 ft. 11 in. (180.34 cm); Pain 6/10; 18:00 BP 132 / 61; Pulse 61; Resp 17 S; Pulse Ox 96% on R/A; rv 18:30 BP 137 / 62; Pulse 67; Resp 17 S; Pulse Ox 95% on R/A; rv 19:17 BP 142 / 73; Pulse 63; Resp 16 S; Pulse Ox 95% on R/A; rv 20:02 BP 152 / 92; Pulse 75; Resp 18 S; Pulse Ox 96% on R/A; rv 22:51 BP 140 / 88; Pulse 83; Resp 18 S; Pulse Ox 99% on R/A; rv 17:15 Body Mass Index 47.42 (154.22 kg, 180.34 cm) sg MDM: 17:20 Patient medically screened. [facility] 19:35 Data reviewed: vital signs, nurses notes, lab test result(s), radiologic studies. ED jm course: I discussed the patient with Dr. Puri whom advised to transfer patient due to being unable to perform a procedure he believed would be necessary for the patient. 19:56 ED course: I discussed the patient with Dr. Teran whom accepted transfer. . [facility] 22:18 ED course: I discussed the patient with Dr. Quarles whom accepted transfer. [facility] 04/27 17:25 Order name: Urine Dipstick--Ancillary (enter results); Complete Time: 18:38 04/27 17:36 Order name: Basic Metabolic Panel; Complete Time: 18:38 [facility] 04/27 17:36 Order name: CBC with Diff; Complete Time: 18:38 [facility] 04/27 17:36 Order name: Creatinine for Radiology; Complete Time: 18:38 [facility] 04/27 17:36 Order name: Hepatic Function; Complete Time: 18:38 [facility] 04/27 17:36 Order name: Lipase; Complete Time: 18:38 [facility] 04/27 17:36 Order name: IV Saline Lock; Complete Time: 17:52 [facility] 04/27 17:36 Order name: Labs collected and sent; Complete Time: 17:52 [facility] 04/27 17:36 Order name: PT-INR; Complete Time: 18:38 [facility] 04/27 17:36 Order name: CT Abd/Pelvis - W/Contrast; Complete Time: 19:27 [facility] 04/27 20:18 Order name: EKG - Nurse/Tech; Complete Time: 20:58 [facility] 04/27 20:51 Order name: Chest Single View XRAY; Complete Time: 22:17 [facility] Administered Medications: 21:00 Drug: Pepcid 20 mg Route: IVP; Site: left hand; rv 22:51 Follow up: Response: No adverse reaction rv Disposition: 04/28 07:09 Co-signature as Attending Physician, [place] Galvan MD. rn Disposition: 04/27/18 20:00 Transfer ordered to [facility]. Diagnosis are Unspecified jaundice, Hepatic Mass, Pacemaker Failure. - Reason for transfer: Higher level of care. - Accepting physician is Jeffry. - Condition is Stable. - Problem is new. - Symptoms are unchanged. Signatures: Dispatcher [employer] EDMS Isra Aldana RN RN sg Mickail, Joel, PA PA [facility] Montana Galvan MD MD rn Vicente, Ronaldo, RN RN rv Corrections: (The following items were deleted from the chart) 04/27 20:34 18:40 Abdomen Limited+[id number].BRZ ordered. EDMS EDMS 20:40 20:00 04/27/2018 20:00 Transfer ordered to [facility]. Diagnosis is jmm Unspecified jaundice; Hepatic Mass. Reason for transfer: Higher level of care. Accepting physician is Jeffry. Condition is Stable. Problem is new. Symptoms are unchanged. [facility] 22:19 19:35 ED course: I discussed the patient with Dr. Puri whom advised to transfer [facility] patient due to being unable to perform a metal stent. . [facility] 22:52 20:40 04/27/2018 20:00 Transfer ordered to [facility]. Diagnosis is rv Unspecified jaundice; Hepatic Mass; Pacemaker Failure. Reason for transfer: Higher level of care. Accepting physician is Jeffry. Condition is Stable. Problem is new. Symptoms are unchanged. [facility]
--- NOTE | 2018-04-27 20:00 | ER ---
Nurse's Notes [facility] Name: Hill Tolliver Age: 68 yrs Sex: Male : 1950 Arrival Date: 04/27/2018 Time: 17:00 Bed 27 Private MD: Amol Massey Diagnosis: Unspecified jaundice;Hepatic Mass;Pacemaker Failure Presentation: 04/27 17:17 Presenting complaint: Patient states: RLQ ABD pain, reports yellowing of the skin for sg several days now, dark orange/red colored urine, recently seen, dx with UTI at [facility] and given ABX, reports no change in symptoms, denies N/V/D. Transition of care: patient was not received from another setting of care. Onset of symptoms was April 27, 2018. Risk Assessment: Do you want to hurt yourself or someone else? Patient reports no desire to harm self or others. Initial Sepsis Screen: Does the patient meet any 2 criteria? No. Patient's initial sepsis screen is negative. Does the patient have a suspected source of infection? Yes: Dysuria/Frequency/Urgency/UTI. Care prior to arrival: None. 17:17 Method Of Arrival: Ambulatory sg 17:17 Acuity: FRAN 3 sg Historical: - Allergies: 17:17 No Known Allergies; sg - Home Meds: 17:17 BP medication 12.5 mg [Active]; sg 18:28 nifedipine 60 mg Oral TbER [Active]; sulfamethoxazole-trimethoprim 400-80 mg Oral tab rv [Active]; carvedilol 12.5 mg oral tab [Active]; gabapentin 300 mg oral cap [Active]; glipizide 10 mg Oral tab [Active]; Invokana 100 mg oral tab [Active]; - PMHx: 17:17 Hernia; Diabetes - NIDDM; Hypertension; Colon Cancer; Lymphedema; sg - PSHx: 17:17 Colon Resection; sg 18:41 Cholecystectomy; sg - Immunization history:: Adult Immunizations up to date. - Social history:: Smoking status: Patient/guardian denies using tobacco. - Ebola Screening: : Patient negative for fever greater than or equal to 101.5 degrees Fahrenheit, and additional compatible Ebola Virus Disease symptoms Patient denies exposure to infectious person Patient denies travel to an Ebola-affected area in the 21 days before illness onset No symptoms or risks identified at this time. Screenin:53 Abuse screen: Denies threats or abuse. Denies injuries from another. Nutritional rv screening: No deficits noted. Tuberculosis screening: No symptoms or risk factors identified. Fall Risk None identified. Assessment: 17:29 General: Appears in no apparent distress. uncomfortable, Behavior is calm, cooperative. rv Pain: Complains of pain in abdomen. Neuro: Level of Consciousness is awake, alert, obeys commands, Oriented to person, place, time, situation. Cardiovascular: Capillary refill < 3 seconds. Respiratory: Airway is patent. GI: Reports lower abdominal pain. : Reports urine discoloration. EENT: No signs and/or symptoms were reported regarding the EENT system. Derm: Skin is jaundiced. Musculoskeletal: No signs and/or symptoms reported regarding the musculoskeletal system. 17:31 EENT:. rv Vital Signs: 17:15 BP 156 / 81; Pulse 69; Resp 19; Temp 99.0; Pulse Ox 96% on R/A; Weight 154.22 kg; sg Height 5 ft. 11 in. (180.34 cm); Pain 6/10; 18:00 BP 132 / 61; Pulse 61; Resp 17 S; Pulse Ox 96% on R/A; rv 18:30 BP 137 / 62; Pulse 67; Resp 17 S; Pulse Ox 95% on R/A; rv 19:17 BP 142 / 73; Pulse 63; Resp 16 S; Pulse Ox 95% on R/A; rv 20:02 BP 152 / 92; Pulse 75; Resp 18 S; Pulse Ox 96% on R/A; rv 22:51 BP 140 / 88; Pulse 83; Resp 18 S; Pulse Ox 99% on R/A; rv 17:15 Body Mass Index 47.42 (154.22 kg, 180.34 cm) sg ED Course: 16:45 Inserted saline lock: 20 gauge in right antecubital area, using aseptic technique. rv Blood collected. 17:00 Patient arrived in ED. as 17:00 Amol Massey DO is Private Physician. as 17:13 Nelson Sanchez [facility] 17:13 [place] Galvan MD is Attending Physician. [facility] 17:19 Triage completed. sg 17:19 Arm band placed on. sg 17:43 Radiology exam delayed due to lab results not completed at this time. (BUN/Creatinine). kw1 17:51 PT-INR Sent. rv 17:51 Basic Metabolic Panel Sent. rv 17:52 CBC with Diff Sent. rv 17:52 Creatinine for Radiology Sent. rv 17:52 Hepatic Function Sent. rv 17:52 Lipase Sent. rv 17:52 Urine Dipstick--Ancillary (enter results) Sent. rv 17:53 Patient has correct armband on for positive identification. Bed in low position. Call rv light in reach. Side rails up X 1. Adult w/ patient. Pulse ox on. NIBP on. 18:55 CT Abd/Pelvis - W/Contrast In Process Unspecified. EDMS 18:55 CT completed. Patient moved to CT via wheelchair. Patient moved back from CT. kw1 21:22 Chest Single View XRAY In Process Unspecified. EDMS 22:52 No provider procedures requiring assistance completed. Patient transferred, IV remains rv in place. intact. Administered Medications: 21:00 Drug: Pepcid 20 mg Route: IVP; Site: left hand; rv 22:51 Follow up: Response: No adverse reaction rv Outcome: 20:00 ER care complete, transfer ordered by . andra 22:52 Transferred by ground EMS to [facility], Transfer form completed. rv X-rays sent w/ patient. 22:52 Condition: good 22:52 Instructed on the need for transfer. 22:52 Patient left the ED. rv Signatures: Dispatcher [employer] EDMS Isra Aldana, RN Nelson Carrasquillo PA PA jmm Martinez, Amelia as Wilhelm, Kimberly kw1 Luis Demarco RN RN rv
[2018-04-27] MEDS ORDERED: FAMOTIDINE 20 MG/2 ML VIAL IV ONE (21:17)
--- NOTE | 2018-04-27 22:11 | RAD REPORT ---
EXAM DESCRIPTION: RAD - Chest Single View - 04/27/2018 9:21 pm CLINICAL HISTORY: Abdominal pain COMPARISON: December 2008 TECHNIQUE: AP portable chest image was obtained 2118 hours . FINDINGS: No focal lung parenchymal process. No failure or volume overload. Pacemaker has been place d since prior imaging. Heart size is upper normal, increased slightly from 2008. No vascular engorgem ent. No measurable pleural effusion and no pneumothorax. No acute bony abnormality seen. No acute aor tic findings suspected. IMPRESSION: No acute cardiopulmonary process. No suspicious change from prior imaging.
--- NOTE | 2018-04-29 20:53 | EKG ---
Test Date: 2018-04-27 Test Time: 20:32:31 Cigar Maker: MEASUREMENT RESULTS: Intervals: Rate: 66 CT: 206 QRSD: 92 QT: 418 QTc: 438 [place]: P: 52 CT: 206 QRS: 21 T: 49 INTERPRETIVE STATEMENTS: Suspect unspecified pacemaker failure Normal sinus rhythm Normal ECG Compared to ECG 01/25/2009 09:42:52 No significant changes Electronically Signed On 04-29-18 20:48:29 MATCH UP PERSON by Cornel Martins
== END 2018-04-27 22:52 | disposition short-term general hospital (02) ==
LOC: ER 16:57
DX: R16.0 Hepatomegaly, not elsewhere classified (principal); T82.119A Breakdown (mechanical) of unspecified cardiac electronic device, initial encounter; I10 Essential (primary) hypertension; E11.9 Type 2 diabetes mellitus without complications; Z85.038 Personal history of other malignant neoplasm of large intestine
CPT/HCPCS: 36415; 71045; 74177; 80048; 80076; 81003; 83690; 85025; 85610; 93005; 96374; 99285; Q9967

== ENCOUNTER 2018-05-27 17:24 | Emergency (ER) | payer OTHER ==
--- OUTSIDE RECORDS SUMMARY | 2018-05-27 17:27 | XMS REPORT | Clinical Summary ---
:1950 Author Organization [facility] Address [address] [place] [address] Care Team Providers Name Role Phone Asked, [...] Mir Prakash Insertion Permanent Cardiology , Pacemaker [69682 (CPT)] 12/19/2017 - Hospital Encounter Cardiology Cecilio Bradycardia (Primary Dx); 12/22/2017 Erika O. Sr., Essential hypertension; Lymphedema of both lower extremities; Bradycardia, drug induced 12/19/2017 Intake Access N/A after 05/26/2017 Immunizations Name Dates Previously Given Next Due [...] Comments COLON CANCER SCREENING 2002 SHINGLES VACCINES (#1) 2002 65+ PNEUMOCOCCAL VACCINE (1 of 2 - PCV13) 2017 PNEUMOCOCCAL POLYSACCHARIDE VACCINE AGE 65 AND OVER 2017 INFLUENZA VACCINE Completed 12/22/2017 Implants Implanted Type Area Party Plan Salesperson Device Shelf Model / Identifier Expiration Serial / Date Lot [place] Xt Dr Mri - [id number] Cardiac N/A: [employer] [facility] [id number] / Implanted: 12/21/2017 (Quantity not on file) Pacemaker N/A [employer] / Generators Lead, Pacemaker Atrial And Ventricular 58 Centimeter Capsure Fix Novus System - [id number] Cardiac Pacing N/A: [employer] [facility] 09/25/2019 [id number] / Implanted: 12/21/2017 (Quantity not on file) Leads or N/[employer] [id number] / Electrodes or [id number] Accessories Lead, Pacemaker Bipolar Fix Forming Atrial And Ventricular Steroid Eluting 52 Centimeter Capsure Fix Novus - [id number] Cardiac Pacing N/A: [employer] [facility] 11/01/2019 [id number] / Implanted: 12/21/2017 (Quantity not on file) Leads or N/[employer] [id number] / Electrodes or [id number] Accessories Procedures Procedure Name Priority Date/Time Associated [...] are in SPECTRAL COLOR DOPPLER the results (15353) section. US DUPLEX VENOUS LOWER Routine 12/20/2017 [...] procedure are in the results section. after 05/26/2017 Results POC glucose (12/22/2017 7:47 AM CDT)Only the most recent of11 resultswithin the time period is included. POC glucose 125 (H) 65 - 99 mg/dL [facility] DEPARTMENT OF PATHOLOGY AND Comment: GENOMIC MEDICINE [facility] Notified RN Meter ID: [id number] Automatic Drill Operator: Darryl Rawls Performing Organization Address City/State/Zipcode Phone Number [facility] DEPARTMENT OF PATHOLOGY AND [address] [place] [address] [employer] MEDICINE ECG Pre/Post Op-Tomorrow (12/22/2017 6:53 AM CDT) Ventricular rate 70 [facility]USE Atrial rate 70 [facility] NV interval 196 [facility] QRSD interval 92 [facility] QT interval 426 [facility] QTC interval 460 [facility] P axis 1 50 [facility] QRS axis 1 16 [facility] T wave axis 64 [facility] EKG impression Normal sinus rhythm-Cannot rule out Anterior [facility] MUSE infarct , age undetermined-Abnormal ECG-In automated comparison with ECG of 21-DEC-2017 16:12,-Sinus rhythm has replaced Atrial flutter- Performing Organization Address City/State/Zipcode Phone Number [facility] NICOLE [address] [place] [address] CBC with platelet and differential (12/22/2017 5:10 AM CDT)Only the most recent of3 resultswithin the time period is included. WBC 10.97 4.50 - 11.00 k/uL [facility] DEPARTMENT OF PATHOLOGY AND GENOMIC MEDICINE RBC 4.94 4.40 - 6.00 m/uL [facility] DEPARTMENT OF PATHOLOGY AND GENOMIC MEDICINE HGB 12.9 (L) 14.0 - 18.0 g/dL [facility] DEPARTMENT OF PATHOLOGY AND GENOMIC MEDICINE HCT 41.9 41.0 - 51.0 % [facility] DEPARTMENT OF PATHOLOGY AND GENOMIC MEDICINE MCV 84.8 82.0 - 100.[address] [facility] DEPARTMENT OF PATHOLOGY AND GENOMIC MEDICINE MCH 26.1 (L) 27.0 - 34.[address] [facility] DEPARTMENT OF PATHOLOGY AND GENOMIC MEDICINE MCHC 30.8 (L) 31.0 - 37.0 g/dL [facility] DEPARTMENT OF PATHOLOGY AND GENOMIC MEDICINE RDW - SD 43.4 37.0 - 55.[address] [facility] DEPARTMENT OF PATHOLOGY AND GENOMIC MEDICINE MPV 8.7 (L) 8.8 - 13.[address] [facility] DEPARTMENT OF PATHOLOGY AND GENOMIC MEDICINE Platelet count 248 150 - 400 k/uL [facility] DEPARTMENT OF PATHOLOGY AND GENOMIC MEDICINE Nucleated RBC 0.00 /[address] [facility] DEPARTMENT OF PATHOLOGY AND GENOMIC MEDICINE Neutrophils 71.0 (H) 39.0 - 69.0 % [facility] DEPARTMENT OF PATHOLOGY AND GENOMIC MEDICINE Lymphocytes 16.4 (L) 25.0 - 45.0 % [facility] DEPARTMENT OF PATHOLOGY AND GENOMIC MEDICINE Monocytes 8.5 0.0 - 10.0 % [facility] DEPARTMENT OF PATHOLOGY AND GENOMIC MEDICINE Eosinophils 3.3 0.0 - 5.0 % [facility] DEPARTMENT OF PATHOLOGY AND GENOMIC MEDICINE Basophils 0.5 0.0 - 1.0 % [facility] DEPARTMENT OF PATHOLOGY AND GENOMIC MEDICINE Immature granulocytes 0.3Comment: 0.0 - 1.0 % [facility] DEPARTMENT OF "Immature PATHOLOGY AND GENOMIC granulocytes" MEDICINE (promyelocytes, myelocytes, metamyelocytes) Specimen Blood Performing Organization Address City/[facility] Phone Number [facility] DEPARTMENT OF PATHOLOGY AND [address] [place] [address] [employer] MEDICINE Estimated GFR (12/22/2017 4:00 AM CDT)Only the most recent of3 resultswithin the time period is included. Estimated GFR >=90 mL/min/1.[address] [facility] DEPARTMENT OF Comment: PATHOLOGY AND GENOMIC CatergoryUnitsInterpretation MEDICINE G1 >=90 Normal or high G2 60-89Mildly decreased [id number] to moderately decreased M3v61-17Pibmrwroly to severely decreased G4 15-29Severely decreased G5 <15Kidney failure The eGFR was calculated using the Chronic Kidney Disease Epidemiology Collaboration (CKD-EPI) equation. Interpretation is based on recommendations of the National Kidney Foundation-Kidney Disease Outcomes Quality Initiative (NKF-KDOQI) published in 2014. Specimen Plasma specimen Performing Organization Address [facility] Phone Number [facility] DEPARTMENT OF PATHOLOGY AND [address] [place] [address] [employer] MEDICINE Basic metabolic panel (12/22/2017 4:00 AM CDT)Only the most recent of3 resultswithin the time period is included. Sodium 137 135 - 148 mEq/L [facility] DEPARTMENT OF PATHOLOGY AND GENOMIC MEDICINE Potassium 4.3 3.5 - 5.0 mEq/L [facility] DEPARTMENT OF PATHOLOGY AND GENOMIC MEDICINE Chloride 97 (L) 98 - 112 mEq/L [facility] DEPARTMENT OF PATHOLOGY AND GENOMIC MEDICINE CO2 26 24 - 31 mEq/L [facility] DEPARTMENT OF PATHOLOGY AND GENOMIC MEDICINE Anion gap 14@ANIO 7 - 15 mEq/L [facility] DEPARTMENT OF PATHOLOGY AND GENOMIC MEDICINE BUN 11 8 - 23 mg/dL [facility] DEPARTMENT OF PATHOLOGY AND GENOMIC MEDICINE Creatinine 0.80 0.70 - 1.20 mg/dL [facility] DEPARTMENT OF PATHOLOGY AND GENOMIC MEDICINE Glucose 105 (H) 65 - 99 mg/dL [facility] DEPARTMENT OF PATHOLOGY AND GENOMIC MEDICINE Calcium 9.1 8.8 - 10.2 mg/dL [facility] DEPARTMENT OF PATHOLOGY AND GENOMIC MEDICINE Specimen Plasma specimen Performing Organization Address City/[facility] Phone Number [facility] DEPARTMENT OF PATHOLOGY AND [address] [place] [address] [employer] MEDICINE XR Chest 1 Vw Portable (12/21/2017 [...] are present at the cervical thoracic junction. [facility]-[id number] Procedure Note Hm Interface, Radiology Results Incoming [...] are present at the cervical thoracic junction. [facility]-[id number] Performing Organization Address [facility] Phone Number [facility] [address] [place] [address] ECG 12 lead (12/21/2017 4:12 PM CDT)Only the most recent of2 resultswithin the time period is included. Ventricular rate 67 [facility] MUSE Atrial rate 250 [facility] M[facility] QRSD interval 90 [facility] M[facility] QT interval 418 [facility] M[facility] QTC interval 441 HM MUSE P axis 1 48 [facility] MUSE QRS axis 1 22 [facility] MUSE T wave axis 57 HM MUSE EKG impression Atrial flutter-Abnormal ECG-In automated [facility] MUSE comparison with ECG of 20-DEC-2017 06:03,-Atrial flutter has replaced Sinus rhythm- Performing Organization Address [facility] Phone Number [facility] [address] [place] [address] Cv electrophysiology procedure (12/21/2017 3:06 PM CDT) [...] on no offending medications.He was transferred to [facility] and Dr. Sullivan has asked me to [...] None. FINDINGS: 1.The pacemaker is a Medtronic Mariposa-XT model [id number], serial #[id number]. 2.The right atrial lead is a Medtronic 5076, serial #[id number], measured P-waves 2.4 mV, pacing threshold 1 V at 0.5 msec, current 2.7 mA, impedance 580 ohms. 3.The ventricular lead is a Medtronic 5076, serial #[id number], measured R-waves 14 mV, pacing threshold 0.5 V, current 1.4 mA, impedance 679 ohms. ESTIMATED BLOOD LOSS: Less than 10 mL SEDATION: IV conscious sedation. MEDICATIONS: 1.Versed. 2.Fentanyl. CONCLUSIONS: Successful dual-chamber pacemaker placement. RECOMMENDATIONS: IV antibiotics at home per Dr. Sullivan and Dr. Mena. Performing Organization Address City/State/Zipcode Phone Number [facility] [address] [place] [address] Echocardiogram complete w contrast and 3D if needed (12/20/2017 10:13 AM CDT) Narrative Performed At [facility] Echocardiography Report [address] [place] [address] Pat.Name:MARC TOLLIVER [facility].ID:[id number] .Date: 12/20/2017 Refer.MD:ERIKA MENA MD Exam Time: 9:02:00 AMStudy Type:Routine Echo Height:71inWeight: 377lb BSA: 2.76 m2 DOBAge:1950,67Y Sex: MALEBP:173/82 Sonogrphr: KIMMIE CORBETT ACS, RDMARILU, LAUREN/Lexa Chance MD Pat. Stat.:Inpatient Study Status:Final Echo Event ID:[id number] Order ID:[id number] Reason for Study:SOB, suspected cardiac etiology Procedures:2D [...] RAPof 5 mmHg. MEASUREMENTS: 2D Parasternal [place] LVOT 2 cmIVSd 1.2 cm Ao An1.9 cmLVPWd1.2 cm Ao Rtd 3.2 cmIndex1.2 cm/m LV Uquw722 g(122-174) LVIDd5.4 cmIndex2 cm/m LVM Index 97.1 g/m2 LVIDs3.6 cmRWT0.4 LV%fs 32.8 % LA Sng Plane LA Area 24.7 cm2(8.8-23.4) LA Vol80.5 ml Index29.2 ml/m LA LngAx 6.4 cm DOPPLER LVOT Stroke Vol LVOT 2 cmLVOT CO4.4 l/min LVOT TVI23.5 cmLVOT CI1.6 l/m/m2 LVOT Tm371 qskrJB54 bpm LVOT SV 73.8 ml Signed 12/20/2017 10:56 AM Tatiana Zaman MD Procedure Note Interface, Radiology Results In - 12/20/2017 10:57 AM CDT Echocardiography Report [address] [place] [address] Pat.Name: MARC TOLLIVER Pat.ID: [id number] .Date: 12/20/2017 Refer.MD: ERIKA MENA MD Exam Time: 9:02:00 AM Study Type:Routine Echo Height: 71in Weight: 377lb BSA: 2.76 m2 Age: 14 1950,67Y Sex: MALE BP: 173/82 Sonogrphr: DOMINIC MARIE, RD, LAUREN/Lexa Chance MD Pat. Stat.:Inpatient Study Status:Final Echo Event ID:[id number] Order ID: [id number] Reason for Study:SOB, suspected cardiac etiology Procedures:2D [...] of 5 mmHg. MEASUREMENTS: 2D Parasternal [place] LVOT 2 cm IVSd 1.2 cm Ao [...] MD Performing Organization Address City/State/Zipcode Phone Number [facility] [address] [place] [address] Pv duplex venous lower extremity (12/20/2017 9:05 AM CDT) Narrative Performed At [facility] Vascular Ultrasound Laboratory Lower Extremity Venous Report [address] [address] Pat.Name:[facility] TOLLIVER [facility][id number] .Date: 12/20/2017 Refer.MD:TATIANA SULLIVAN MD Exam Time: 8:26:00 AMStudy Type:LE Venous Height:71inWeight: 377lb BSA: 2.76 m2 DOBAge:1950,67Y Sex: MALEBP:176/89 Sonogrphr: Nishi Jewell, RDCS, RVT Pat. Stat.:Inpatient Room:[facility] ATapeVol: ED, CPT - 4: 30533 Echo Event ID:[id number] Order ID:[id number] Reason for Study:Leg edema History / Clinical:Obesity, [...] Vascular Ultrasound Laboratory Lower Extremity Venous Report [address] [place] [address] Pat.Name: MARC TOLLIVER Pat.ID: [id number] .Date: 12/20/2017 Refer.MD: TATIANA SULLIVAN MD Exam Time: 8:26:00 AM Study Type:LE Venous Height: 71in Weight: 377lb BSA: 2.76 m2 Age: 14 1950,67Y Sex: MALE BP: 176/89 Sonogrphr: Nishi Jewell RDCS, RVT Pat. Stat.:Inpatient Room: [address] Vol: ED, CPT - 4: 58264 Echo Event ID:[id number] Order ID: [id number] Reason for Study:Leg edema History / Clinical:Obesity, [...] RPVI Performing Organization Address City/State/Zipcode Phone Number [facility] [address] [place] [address] Pv carotid duplex (12/20/2017 8:23 AM CDT) Narrative Performed At [facility] Vascular Ultrasound Laboratory Carotid Artery Duplex Report [address] [place] [address] For research quality assurance analyst purposes, the categorization of the degree of the stenosis of this exam is based on criteria described in the IAC carotid stenosis grading white paper( www.intersocietal.org/Vascular) and Lauri Barba, Gael Richardson, et al. Carotid artery stenosis: pool-scale and Doppler US diagnosis--Society of Radiologists in Ultrasound Consensus Conference. Radiology. 2003 Nov; 229(2):340-6. Pat.Name:MARC TOLLIVER [facility].ID:[id number] .Date: 12/20/2017 Refer.MD:TATIANA SULLIVAN MD Exam Time: 7:44:00 AMStudy Type:Carotid Height:71inWeight: 377lb BSA: 2.76 m2 DOBAge:1950,67Y Sex: MALEBP:176/89 Sonogrphr: Nishi Jewell RDCS, T Pat. Stat.:Inpatient Room:[facility] ATapeVol: ED, CPT - 4: 31047 Echo Event ID:[id number] Order ID:[id number] Reason for Study:Dizziness History / Clinical:Obesity, Lymphedema, [...] Vascular Ultrasound Laboratory Carotid Artery Duplex Report [address] [place] [address] For research quality assurance analyst purposes, the categorization of the degree of the stenosis of this exam is based on criteria described in the IAC carotid stenosis grading white paper( www.intersocietal.org/Vascular) and Marysol Barba., Veronica Richardson., et al. Carotid artery stenosis: pool-scale and Doppler US diagnosis--Society of Radiologists in Ultrasound Consensus Conference. Radiology. 2003 Nov; 229(2):340-6. Pat.Name: MARC TOLLIVER [facility] Pat.ID: [id number] .Date: 12/20/2017 Refer.MD: TATIANA SULLIVAN MD Exam Time: 7:44:00 AM Study Type:Carotid Height: 71in Weight: 377lb BSA: 2.76 m2 Age: 14 1950,67Y Sex: MALE BP: 176/89 Sonogrphr: Nishi Jewell RDCS, RVT Pat. Stat.:Inpatient Room: [address] Vol: ED, CPT - 4: 99011 Echo Event ID:[id number] Order ID: [id number] Reason for Study:Dizziness History / Clinical:Obesity, Lymphedema, [...] Braulio Hall MD, RPVI Performing Organization Address [facility] Phone Number [facility] [address] [place] [address] Troponin (12/20/2017 4:00 AM CDT)Only the most recent of2 resultswithin the time period is included. Troponin <0.30 0.00 - 0.30 ng/mL [facility] DEPARTMENT OF PATHOLOGY Comment: AND GENOMIC MEDICINE 0.30 - 1.49 ng/mlMay indicate increased risk of acute coronary syndrome. >=1.5 ng/mlConsistent with acute myocardial infarction. The diagnostic value of a single normal or non-diagnostic result is questionable.Serial samples at 2-6 hour intervals are required to rule out acute myocardial injury. Specimen Plasma specimen Performing Organization Address City/[facility] Phone Number [facility] DEPARTMENT OF PATHOLOGY AND [address] [place] [address] Thyroid stimulating hormone (12/20/2017 4:00 AM CDT) TSH 1.98 0.27 - 4.20 uIU/mL [facility] DEPARTMENT OF PATHOLOGY AND GENOMIC MEDICINE Specimen Plasma specimen Performing Organization Address City/[facility] Phone Number [facility] DEPARTMENT OF PATHOLOGY AND [address] [place] [address] MEDICINE T4, free (12/20/2017 4:00 AM CDT) T4, free 1.2 0.9 - 1.7 ng/dL [facility] DEPARTMENT OF PATHOLOGY AND GENOMIC MEDICINE Specimen Plasma specimen Performing Organization Address City/[facility] Phone Number [facility] DEPARTMENT OF PATHOLOGY AND [address] [place] [address] Lipid panel (12/20/2017 4:00 AM CDT) Cholesterol 157 <200 mg/dL [facility] DEPARTMENT OF PATHOLOGY AND GENOMIC MEDICINE Triglycerides 132 <150 mg/dL [facility] DEPARTMENT OF PATHOLOGY AND GENOMIC MEDICINE HDL cholesterol 29 (L) >40 mg/dL [facility] DEPARTMENT OF PATHOLOGY AND GENOMIC MEDICINE LDL cholesterol 105 (H)Comment: Result <100 mg/dL [facility] DEPARTMENT OF obtained by direct LDL PATHOLOGY AND GENOMIC measurement MEDICINE Lipid panel interpretation SeeBelow [facility] DEPARTMENT OF Comment: PATHOLOGY AND GENOMIC Total Cholesterol (mg/dL) MEDICINE <200 Desirable 446-823Symyiwvwir-wtel >=240High Triglycerides (mg/dL) <150 Normal 238-891Hyykoqlqim-roua 200-499High >=500Very high HDL Cholesterol (mg/dL) <40Low (male) <40Low (female) LDL Cholesterol (mg/dL) <100 Optimal 100-129Near or above optimal 336-419Mjbhnxpngg-resp 160-189High >=190Very high Risk Catergories that modify [...] mg/dL) Specimen Plasma specimen Performing Organization Address City/[facility] Phone Number [facility] DEPARTMENT OF PATHOLOGY AND [address] [place] [address] [facility] Urinalysis screen and microscopy, with reflex to culture (12/19/2017 9:45 PM CDT) Specimen site Clean catch [facility] DEPARTMENT OF PATHOLOGY AND GENOMIC MEDICINE Color, UA Straw [facility] DEPARTMENT OF PATHOLOGY AND GENOMIC MEDICINE Appearance, UA Clear [facility] DEPARTMENT OF PATHOLOGY AND GENOMIC MEDICINE Specific gravity, UA 1.012 1.001 - 1.035 [facility] DEPARTMENT OF PATHOLOGY AND GENOMIC MEDICINE pH, UA 6.0 5.0 - 8.5 [facility] DEPARTMENT OF PATHOLOGY AND GENOMIC MEDICINE Protein, UA Negative Negative [facility] DEPARTMENT OF PATHOLOGY AND GENOMIC MEDICINE Glucose, UA 3+ (A) Negative [facility] DEPARTMENT OF PATHOLOGY AND GENOMIC MEDICINE Ketones, UA Negative Negative [facility] DEPARTMENT OF PATHOLOGY AND GENOMIC MEDICINE Bilirubin, UA Negative Negative [facility] DEPARTMENT OF PATHOLOGY AND GENOMIC MEDICINE Blood, UA Negative Negative [facility] DEPARTMENT OF PATHOLOGY AND GENOMIC MEDICINE Nitrite, UA Negative Negative [facility] DEPARTMENT OF PATHOLOGY AND GENOMIC MEDICINE Urobilinogen, UA 4.0 (A) <2.0 [facility] DEPARTMENT OF PATHOLOGY AND GENOMIC MEDICINE Leukocyte esterase, UA Negative Negative [facility] DEPARTMENT OF PATHOLOGY AND GENOMIC MEDICINE Epithelial cells, UA <1 /HPF [facility] DEPARTMENT OF PATHOLOGY AND GENOMIC MEDICINE WBC, UA <1 0 - 1 /HPF [facility] DEPARTMENT OF PATHOLOGY AND GENOMIC MEDICINE RBC, UA <1 0 - 5 /HPF [facility] DEPARTMENT OF PATHOLOGY AND GENOMIC MEDICINE Bacteria, UA Few None seen [facility] DEPARTMENT OF PATHOLOGY AND GENOMIC MEDICINE Yeast, UA None seen [facility] DEPARTMENT OF PATHOLOGY AND GENOMIC MEDICINE Yeast with pseudohyphae, UA None seen [facility] DEPARTMENT OF PATHOLOGY AND GENOMIC MEDICINE Specimen Urine Performing Organization Address City/[facility]/Zipcode Phone Number [facility] DEPARTMENT OF PATHOLOGY AND [address] [place] [address] [employer] MEDICINE Urine culture (12/19/2017 9:45 PM CDT) Urine culture SEE COMMENTComment: Bacteriuria [facility] DEPARTMENT OF PATHOLOGY screen negative. AND GENOMIC MEDICINE Performing Organization Address City/[facility]/Zipcode Phone Number [facility] DEPARTMENT OF PATHOLOGY AND [address] [place] [address] [facility] MEDICINE Hemoglobin A1c (12/19/2017 8:45 PM CDT) Hemoglobin A1C 7.2 (H) 4.0 - 5.6 % [facility] DEPARTMENT OF PATHOLOGY Comment: AND GENOMIC MEDICINE [...] Blood Performing Organization Address City/State/Zipcode Phone Number [facility] DEPARTMENT OF PATHOLOGY AND [address] [place] [address] [employer] MEDICINE after 05/26/2017 Insurance Payer Benefit Plan / Group Subscriber ID Type Phone Address AETNA AETNA HMO,POS,EPO, MC/EC xxxxxxxxxx HMO (Home) [place] [address] Advance Directives For more information, please contact:dE Linder[address] [place] [address] Code Status Date Activated Date Inactivated Comments Full Code 12/19/2017 9:12 PM 12/22/2017 5:14 PM Code Status decision reached by: Patient
--- OUTSIDE RECORDS SUMMARY | 2018-05-27 17:29 | XMS REPORT | Clinical Summary ---
:1950 Author Organization [facility] Address [address] [place] [address] Care Team Providers Name Role Phone Unknownmeds, Provider Primary Care Provider Unavailable Allergies No Known Allergies Medications Medication Sig Dispensed Refills Start End Date Status Date gabapentin Take 600 mg by 0 Active (NEURONTIN) 600 MG mouth nightly. tabletIndications: Neuropathic Pain carvedilol (COREG) Take 12.5 mg by 0 Active 12.5 MG mouth daily. tabletIndications: hypertension insulin glargine Inject 25 Units 10 mL 0 Active (LANTUS) 100 subcutaneously 2 9 unit/mL (two) times daily injectionIndication Use as directed . s: type 2 diabetes mellitus ondansetron Take 1 tablet (4 30 tablet 1 Active (ZOFRAN-ODT) 4 MG mg total) by mouth 9 disintegrating every 6 (six) tablet hours as needed for Nausea. promethazine Take 1 tablet (25 30 tablet Active (PHENERGAN) 25 MG mg total) by mouth 9 tablet every 8 (eight) hours as needed for Nausea. morphine (MSIR) 15 Take 1 tablet (15 30 tablet 0 Active MG tablet mg total) by mouth 9 every 4 (four) hours as needed for Pain. Max Daily Amount: 90 mg insulin glargine Inject 50 Units 0 05/07/19 Discontinued (LANTUS) 100 subcutaneously 2 19 unit/mL (two) times daily injectionIndication Use as directed . s: type 2 diabetes mellitus glipiZIDE Take 10 mg by 0 05/07/19 Discontinued (GLUCOTROL) 10 MG mouth 2 (two) 19 tabletIndications: times daily before type 2 diabetes meals. mellitus sulfamethoxazole-tr Take by mouth 2 0 05/16/19 Discontinued imethoprim (two) times daily. 19 (BACTRIM,SEPTRA) 400-80 mg per tablet NIFEdipine (ADALAT Take 60 mg by 0 05/16/19 Discontinued CC) 60 MG 24 hr mouth daily. 19 tablet traMADol (ULTRAM) Take 1 tablet (50 30 tablet 0 05/10/19 50 mg tablet mg total) by mouth 9 19 every 6 (six) hours as needed for up to 10 days. Max Daily Amount: 200 mg ramipril (ALTACE) Take 10 mg by 0 05/16/19 Discontinued 10 MG capsule mouth daily. 19 levoFLOXacin Take 1 tablet (500 8 tablet 0 05/25/19 (LEVAQUIN) 500 MG mg total) by mouth 9 19 tablet daily for 8 days. Active Problems Problem Noted Date Sepsis 05/11/2018 Metastatic colon cancer to liver 05/11/2018 DERIC (acute kidney injury) 05/11/2018 Hypotension 05/11/2018 Lethargy 05/11/2018 Goals of care, counseling/discussion 05/11/2018 Severe protein-calorie malnutrition 05/11/2018 Liver masses 04/28/2018 Obstructive jaundice 04/28/2018 Type 2 diabetes mellitus without complication, with long-term current use of insulin Essential hypertension 04/28/2018 Encounters Date Type Specialty Care Team Description 05/23/2018 Outside Orders Central Scheduling Beny Jaquez Colon cancer MD Pradip metastasized to liver (HCC) (Primary Dx) 05/11/2018 - Hospital Encounter General Internal Pawel, DERIC (acute kidney injury) (HCC) (Primary Dx); 05/16/2018 Medicine Eh Sepsis, due to unspecified organism (HCC); MD Iona Hypotension due to hypovolemia; Buddy Manley Metastatic colon cancer to liver (HCC); MD Indira Goals of care, counseling/discussion; Austyn Herndon, Severe protein-calorie malnutrition (HCC); Type 2 diabetes mellitus without complication, with long-term current use of insulin (HCC) 05/11/2018 Travel 05/11/2018 Orders Only General Internal Medicine 05/02/2018 Surgery Virtual, Surgeon PROCEDURE DONE OUTSIDE OR 05/02/2018 Anesthesia Event Huseyin Fung MD 04/28/2018 - Hospital Encounter Oncology Kailyn Quarles Elevated bilirubin (Primary Dx); 05/07/2018 MD Shaggy Essential hypertension; Beltran, Liver masses; Willy Colby MD Type 2 diabetes mellitus without complication, with long-term current use of insulin (HCC); Ping Miramontes Colon cancer metastasized to liver (HCC); Sai Rich Obstructive jaundice MD Caitlyn 04/28/2018 Travel after 05/26/2017 Family History Medical History Relation Name Comments Diabetes Cousin Kidney failure Cousin Cancer Father Breast cancer Mother Diabetes type II Mother Relation Name Status Comments Cousin Father Mother Social History Tobacco Use Types Packs/Day Years Used Date Never Smoker Smokeless Tobacco: Never Used Alcohol Use Drinks/Week oz/Week Comments No Alcohol Habits Answer Date Recorded How often do you have a drink containing alcohol? Never 04/28/2018 How many drinks containing alcohol do you have on a typical Not asked day when you are drinking? How often do you have six or more drinks on one occasion? Not asked Sex Assigned at Date Recorded Not on file Job Start Date Occupation Industry Not on file Not on file Not on file Travel History Travel Start Travel End No recent travel history available. Last Filed Vital Signs Vital Sign Reading Time Taken Blood Pressure 148/65 05/16/2018 10:56 AM [employer] PR[employer]PER[employer] Pulse 60 05/16/2018 10:56 AM [employer]ARD PR[employer] OPERATOR Temperature 37.2 C (99 F) 05/16/2018 10:56 AM [employer] PR[employer] OPERATOR Respiratory Rate 19 05/16/2018 10:56 AM [employer]ARD PR[employer] OPERATOR Oxygen Saturation 95% 05/16/2018 10:56 AM [employer]ARD PRESS OPERATOR Inhaled Oxygen Concentration 21% 05/07/2018 9:00 AM [employer]ARD PRESS OPERATOR Weight 143.1 kg (315 lb 7.7 oz) 05/16/2018 6:09 AM [employer]ARD PRESS OPERATOR Height 180.3 cm (5' 11") 05/11/2018 8:00 AM [employer]ARD PRESS OPERATOR Body Mass Index 44 05/16/2018 6:09 AM [employer]ARD PRESS OPERATOR Plan of Treatment Date Type Specialty Care Team Description 06/05/2018 Appointment Radiology Beny Jaquez MD [address] [address] [phone] Procedures Procedure Name Priority Date/Time Associated Comments Diagnosis RHYTHM STRIP - SCAN 05/25/2018 12:50 PM [employer]ARD PRESS OPERATOR REPORT OF PROCEDURE - 05/25/2018 12:50 ENDOSCOPY SCAN PM [employer]ARD PRESS OPERATOR ARRYTHMIA IMPLANT 05/21/2018 7:50 REPORT - SCAN AM [employer]DBOARD PRESS OPERATOR RHYTHM STRIP - SCAN 05/21/2018 7:50 AM HARDBOARD PRESS OPERATOR VANCOMYCIN LEVEL, Timed 05/16/2018 12:01 Results for this TROUGH PM [employer]ARD PRESS OPERATOR procedure are in the results section. POCT-GLUCOSE METER Routine 05/16/2018 11:00 Results for this AM [employer]ARD PRESS OPERATOR procedure are in the results section. POCT-GLUCOSE METER Routine 05/16/2018 8:16 Results for this AM [employer]ARD PRESS OPERATOR procedure are in the results section. MAGNESIUM Routine 05/16/2018 6:02 Results for this AM [employer]ARD PRESS OPERATOR procedure are in the results section. PHOSPHORUS Routine 05/16/2018 6:02 Results for this AM [employer]ARD PRESS OPERATOR procedure are in the results section. COMPREHENSIVE METABOLIC Routine 05/16/2018 6:02 Results for this PANEL AM HAR[employer]ARD PRESS OPERATOR procedure are in the results section. CBC (HEMOGRAM ONLY) Routine 05/16/2018 6:02 Results for this AM HAR[employer]ARD PRESS OPERATOR procedure are in the results section. POCT-GLUCOSE METER Routine 05/15/2018 9:30 Results for this PM [employer]ARD PRESS OPERATOR procedure are in the results section. POCT-GLUCOSE METER Routine 05/15/2018 4:39 Results for this PM [employer]ARD PRESS OPERATOR procedure are in the results section. POCT-GLUCOSE METER Routine 05/15/2018 11:58 Results for this AM HAR[employer]OARD PRESS OPERATOR procedure are in the results section. VANCOMYCIN LEVEL, Routine 05/15/2018 11:46 Results for this RANDOM AM [employer]ARD PRESS OPERATOR procedure are in the results section. PHOSPHORUS Routine 05/15/2018 11:46 Results for this AM HAR[employer]OARD PRESS OPERATOR procedure are in the results section. MAGNESIUM Routine 05/15/2018 11:46 Results for this AM HAR[employer]OARD PRESS OPERATOR procedure are in the results section. COMPREHENSIVE METABOLIC Routine 05/15/2018 11:46 Results for this PANEL AM [employer]OARD PRESS OPERATOR procedure are in the results section. CBC (HEMOGRAM ONLY) Routine 05/15/2018 11:46 Results for this AM HAR[employer]OARD PRESS OPERATOR procedure are in the results section. FL SMALL BOWEL SERIES STAT 05/15/2018 10:31 Results for this AM [employer]ARD PRESS OPERATOR procedure are in the results section. POCT-GLUCOSE METER Routine 05/15/2018 7:40 Results for this AM [employer]ARD PRESS OPERATOR procedure are in the results section. VANCOMYCIN LEVEL, Timed 05/15/2018 12:10 Results for this TROUGH AM [employer]OARD PRESS OPERATOR procedure are in the results section. POCT-GLUCOSE METER Routine 05/14/2018 9:01 Results for this PM [employer]ARD PRESS OPERATOR procedure are in the results section. POCT-GLUCOSE METER Routine 05/14/2018 6:40 Results for this PM [employer]ARD PRESS OPERATOR procedure are in the results section. POCT-GLUCOSE METER Routine 05/14/2018 12:58 Results for this PM [employer]ARD PRESS OPERATOR procedure are in the results section. POCT-GLUCOSE METER Routine 05/14/2018 8:56 Results for this AM [employer]ARD PRESS OPERATOR procedure are in the results section. CBC W/PLT COUNT & AUTO Routine 05/14/2018 1:53 Results for this DIFFERENTIAL AM [employer]ARD PRESS OPERATOR procedure are in the results section. PROTHROMBIN TIME/INR Routine 05/14/2018 1:53 Results for this AM [employer]ARD PRESS OPERATOR procedure are in the results section. CBC W/PLT COUNT & AUTO Routine 05/14/2018 1:53 Results for this DIFFERENTIAL AM [employer]ARD PRESS OPERATOR procedure are in the results section. PHOSPHORUS Routine 05/14/2018 1:53 Results for this AM HAR[employer]OARD PRESS OPERATOR procedure are in the results section. MAGNESIUM Routine 05/14/2018 1:53 Results for this AM HARDBOARD PRESS OPERATOR procedure are in the results section. COMPREHENSIVE METABOLIC Routine 05/14/2018 1:53 Results for this PANEL AM HARDBOARD PRESS OPERATOR procedure are in the results section. POCT-GLUCOSE METER Routine 05/13/2018 8:21 Results for this PM HARDB[employer]ARD PRESS OPERATOR procedure are in the results section. POCT-GLUCOSE METER Routine 05/13/2018 5:20 Results for this PM HARDBOARD PRESS OPERATOR procedure are in the results section. POCT-GLUCOSE METER Routine 05/13/2018 11:42 Results for this AM HAR[employer]OARD PRESS OPERATOR procedure are in the results section. CBC W/PLT COUNT & AUTO Routine 05/13/2018 11:10 Results for this DIFFERENTIAL AM [employer]OARD PRESS OPERATOR procedure are in the results section. VANCOMYCIN LEVEL, Timed 05/13/2018 11:10 Results for this TROUGH AM [employer]ARD PRESS OPERATOR procedure are in the results section. PHOSPHORUS Routine 05/13/2018 11:10 Results for this AM HAR[employer]ARD PRESS OPERATOR procedure are in the results section. MAGNESIUM Routine 05/13/2018 11:10 Results for this AM HAR[employer]OARD PRESS OPERATOR procedure are in the results section. COMPREHENSIVE METABOLIC Routine 05/13/2018 11:10 Results for this PANEL AM HARDBOARD PRESS OPERATOR procedure are in the results section. CBC W/PLT COUNT & AUTO Routine 05/13/2018 11:10 Results for this DIFFERENTIAL AM [employer]OARD PRESS OPERATOR procedure are in the results section. POCT-GLUCOSE METER Routine 05/13/2018 7:01 Results for this AM HAR[employer]ARD PRESS OPERATOR procedure are in the results section. POCT-GLUCOSE METER Routine 05/12/2018 9:16 Results for this PM [employer]ARD PRESS OPERATOR procedure are in the results section. TRANSFUSION SERVICE 05/12/2018 6:01 REPORT - SCAN PM HAR[employer]OARD PRESS OPERATOR POCT-GLUCOSE METER Routine 05/12/2018 5:26 Results for this PM HAR[employer]OARD PRESS OPERATOR procedure are in the results section. POCT-GLUCOSE METER Routine 05/12/2018 1:20 Results for this PM [employer]ARD PRESS OPERATOR procedure are in the results section. POCT-GLUCOSE METER Routine 05/12/2018 7:29 Results for this AM HAR[employer]OARD PRESS OPERATOR procedure are in the results section. (CELLAVISION MANUAL Routine 05/12/2018 4:28 Results for this DIFF) AM HARDBOARD PRESS OPERATOR procedure are in the results section. CBC W/PLT COUNT & AUTO Routine 05/12/2018 4:28 Results for this DIFFERENTIAL AM HAR[employer]OARD PRESS OPERATOR procedure are in the results section. PHOSPHORUS Routine 05/12/2018 4:28 Results for this AM HARDBOARD PRESS OPERATOR procedure are in the results section. MAGNESIUM Routine 05/12/2018 4:28 Results for this AM HARDBOARD PRESS OPERATOR procedure are in the results section. COMPREHENSIVE METABOLIC Routine 05/12/2018 4:28 Results for this PANEL AM HAR[employer]OARD PRESS OPERATOR procedure are in the results section. CBC W/PLT COUNT & AUTO Routine 05/12/2018 4:28 Results for this DIFFERENTIAL AM HARDBOARD PRESS OPERATOR procedure are in the results section. CT ABDOMEN/PELVIS STAT 05/12/2018 3:58 Results for this WITHOUT IV CONTRAST AM HARDBOARD PRESS OPERATOR procedure are in the results section. LACTIC ACID, VENOUS, STAT 05/11/2018 11:55 Results for this WHOLE BLOOD PM [employer]ARD PRESS OPERATOR procedure are in the results section. POCT-GLUCOSE METER Routine 05/11/2018 5:20 Results for this PM [employer]ARD PRESS OPERATOR procedure are in the results section. PROTEIN, RANDOM URINE STAT 05/11/2018 4:00 Results for this PM [employer]ARD PRESS OPERATOR procedure are in the results section. CREATININE, RANDOM STAT 05/11/2018 4:00 Results for this URINE PM [employer]ARD PRESS OPERATOR procedure are in the results section. SODIUM, RANDOM URINE STAT 05/11/2018 4:00 Results for this PM [employer]ARD PRESS OPERATOR procedure are in the results section. TROPONIN I STAT 05/11/2018 4:00 Results for this PM [employer]OARD PRESS OPERATOR procedure are in the results section. POCT-GLUCOSE METER Routine 05/11/2018 12:01 Results for this PM [employer]ARD PRESS OPERATOR procedure are in the results section. BLOOD GAS, ARTERIAL Routine 05/11/2018 11:41 Results for this AM [employer]ARD PRESS OPERATOR procedure are in the results section. ECHOCARDIOGRAM REPORT - 05/11/2018 11:21 SCAN AM HARDBOARD PRESS OPERATOR BODY FLUID CULTURE + STAT 05/11/2018 11:21 GRAM STAIN AM HARDBOARD PRESS OPERATOR 2D ECHO W/ DOPPLER DAWOOD 05/11/2018 10:25 Results for this (CW/PW/COLOR) AM [employer]OARD PRESS OPERATOR procedure are in the results section. (CELLAVISION MANUAL STAT 05/11/2018 10:11 Results for this DIFF) AM HAR[employer]OARD PRESS OPERATOR procedure are in the results section. CBC W/PLT COUNT & AUTO STAT 05/11/2018 10:11 Results for this DIFFERENTIAL AM [employer]OARD PRESS OPERATOR procedure are in the results section. CBC W/PLT COUNT & AUTO STAT 05/11/2018 10:11 Results for this DIFFERENTIAL AM [employer]ARD PRESS OPERATOR procedure are in the results section. ECG 12-LEAD Routine 05/11/2018 9:54 Results for this AM [employer]ARD PRESS OPERATOR procedure are in the results section. ECG 12-LEAD Routine 05/11/2018 9:54 AM HARDBOARD PRESS OPERATOR Procedure Note - Interface, External Ris In - 05/11/2018 11:32 AM HAR[employer]OARD PRESS OPERATOR Ventricular Rate 66 BPM Atrial Rate 66 BPM P-R Interval 210 ms QRS Duration 94 ms Q-T Interval 430 ms QTC Calculation(Bazett) 450 ms P [place] 54 degrees R [place] 19 degrees T [place] 41 degrees Sinus rhythm with 1st degree A-V block Otherwise normal ECG When compared with ECG of 02-MAY-2018 16:39, No significant change was found ABORH, MANUAL STAT 05/11/2018 8:49 AM Results for this HAR[employer]ARD PRESS OPERATOR procedure are in the results section. LACTIC ACID, VENOUS, STAT 05/11/2018 8:49 AM Results for this WHOLE BLOOD HAR[employer]ARD PRESS OPERATOR procedure are in the results section. POCT-GLUCOSE METER Routine 05/11/2018 8:17 AM Results for this HAR[employer]ARD PRESS OPERATOR procedure are in the results section. URINALYSIS W/ MICROSCOPIC Routine 05/11/2018 7:58 AM Results for this [employer]ARD PRESS OPERATOR procedure are in the results section. BLOOD CULTURE Routine 05/11/2018 7:58 AM Results for this HAR[employer]ARD PRESS OPERATOR procedure are in the results section. TYPE AND SCREEN, STAT 05/11/2018 7:56 AM Results for this AUTOMATED [employer]ARD PRESS OPERATOR procedure are in the results section. LIPASE Routine 05/11/2018 7:56 AM Results for this [employer]ARD PRESS OPERATOR procedure are in the results section. HEPATIC FUNCTION PANEL STAT 05/11/2018 7:56 AM Results for this HAR[employer]ARD PRESS OPERATOR procedure are in the results section. TSH/FREE T4 IF INDICATED Routine 05/11/2018 7:56 AM Results for this HAR[employer]ARD PRESS OPERATOR procedure are in the results section. B-TYPE NATRIURETIC FACTOR Routine 05/11/2018 7:56 AM Results for this (BNP) [employer]ARD PRESS OPERATOR procedure are in the results section. D-DIMER Routine 05/11/2018 7:56 AM Results for this [employer]ARD PRESS OPERATOR procedure are in the results section. PHOSPHORUS STAT 05/11/2018 7:56 AM Results for this [employer]ARD PRESS OPERATOR procedure are in the results section. MAGNESIUM STAT 05/11/2018 7:56 AM Results for this [employer]ARD PRESS OPERATOR procedure are in the results section. PROCALCITONIN STAT 05/11/2018 7:56 AM Results for this HAR[employer]ARD PRESS OPERATOR procedure are in the results section. BASIC METABOLIC PANEL (7) Routine 05/11/2018 7:56 AM Results for this [employer] PRESS OPERATOR procedure are in the results section. FIBRINOGEN Routine 05/11/2018 7:56 AM Results for this [employer] PRESS OPERATOR procedure are in the results section. APTT Routine 05/11/2018 7:56 AM Results for this [employer]ARD PRESS OPERATOR procedure are in the results section. PROTHROMBIN TIME/INR Routine 05/11/2018 7:56 AM Results for this [employer]ARD PRESS OPERATOR procedure are in the results section. TROPONIN I STAT 05/11/2018 7:56 AM Results for this [employer]ARD PRESS OPERATOR procedure are in the results section. TROPONIN I STAT 05/11/2018 7:56 AM Results for this HAR[employer]ARD PRESS OPERATOR procedure are in the results section. XR CHEST 1 VIEW STAT 05/11/2018 7:07 AM Results for this PORTABLE/BEDSIDE [employer]ARD PRESS OPERATOR procedure are in the results section. POCT-GLUCOSE METER Routine 05/07/2018 1:37 PM Results for this HAR[employer]ARD PRESS OPERATOR procedure are in the results section. POCT-GLUCOSE METER Routine 05/07/2018 9:14 AM Results for this HAR[employer]ARD PRESS OPERATOR procedure are in the results section. POCT-GLUCOSE METER Routine 05/06/2018 6:45 PM Results for this HAR[employer]ARD PRESS OPERATOR procedure are in the results section. POCT-GLUCOSE METER Routine 05/06/2018 9:16 AM Results for this [employer]ARD PRESS OPERATOR procedure are in the results section. COMPREHENSIVE METABOLIC Routine 05/06/2018 6:31 AM Results for this PANEL [employer]ARD PRESS OPERATOR procedure are in the results section. CBC (HEMOGRAM ONLY) Routine 05/06/2018 6:31 AM Results for this [employer] PRESS OPERATOR procedure are in the results section. POCT-GLUCOSE METER Routine 05/05/2018 10:44 PM Results for this HAR[employer]ARD PRESS OPERATOR procedure are in the results section. POCT-GLUCOSE METER Routine 05/05/2018 5:40 PM Results for this [employer]ARD PRESS OPERATOR procedure are in the results section. POCT-GLUCOSE METER Routine 05/05/2018 9:27 AM Results for this [employer]ARD PRESS OPERATOR procedure are in the results section. COMPREHENSIVE METABOLIC Routine 05/05/2018 6:48 AM Results for this PANEL [employer]ARD PRESS OPERATOR procedure are in the results section. CBC (HEMOGRAM ONLY) Routine 05/05/2018 6:48 AM Results for this [employer]ARD PRESS OPERATOR procedure are in the results section. POCT-GLUCOSE METER Routine 05/04/2018 8:53 PM Results for this HAR[employer]OARD PRESS OPERATOR procedure are in the results section. POCT-GLUCOSE METER Routine 05/04/2018 5:57 PM Results for this HAR[employer]OARD PRESS OPERATOR procedure are in the results section. POCT-GLUCOSE METER Routine 05/04/2018 12:42 PM Results for this HAR[employer]ARD PRESS OPERATOR procedure are in the results section. POCT-GLUCOSE METER Routine 05/04/2018 11:40 AM Results for this HAR[employer]ARD PRESS OPERATOR procedure are in the results section. POCT-GLUCOSE METER Routine 05/04/2018 7:41 AM Results for this HAR[employer]ARD PRESS OPERATOR procedure are in the results section. COMPREHENSIVE METABOLIC Routine 05/04/2018 6:10 AM Results for this PANEL [employer]ARD PRESS OPERATOR procedure are in the results section. CBC (HEMOGRAM ONLY) Routine 05/04/2018 6:09 AM Results for this HAR[employer]OARD PRESS OPERATOR procedure are in the results section. POCT-GLUCOSE METER Routine 05/03/2018 9:16 PM Results for this HARDBOARD PRESS OPERATOR procedure are in the results section. POCT-GLUCOSE METER Routine 05/03/2018 6:27 PM Results for this HARDBOARD PRESS OPERATOR procedure are in the results section. POCT-GLUCOSE METER Routine 05/03/2018 11:50 AM Results for this HAR[employer]OARD PRESS OPERATOR procedure are in the results section. POCT-GLUCOSE METER Routine 05/03/2018 7:57 AM Results for this HARDBOARD PRESS OPERATOR procedure are in the results section. COMPREHENSIVE METABOLIC Routine 05/03/2018 6:06 AM Results for this PANEL [employer]ARD PRESS OPERATOR procedure are in the results section. CBC (HEMOGRAM ONLY) Routine 05/03/2018 6:06 AM Results for this HAR[employer]OARD PRESS OPERATOR procedure are in the results section. POCT-GLUCOSE METER Routine 05/02/2018 9:35 PM Results for this HARDBOARD PRESS OPERATOR procedure are in the results section. POCT-GLUCOSE METER Routine 05/02/2018 5:32 PM Results for this HARDBOARD PRESS OPERATOR procedure are in the results section. ECG 12-LEAD Routine 05/02/2018 4:39 PM Results for this HARDBOARD PRESS OPERATOR procedure are in the results section. PROCEDURE DONE OUTSIDE OR 05/02/2018 1:00 PM Liver masses HARDBOARD PRESS OPERATOR POCT-GLUCOSE METER Routine 05/02/2018 11:59 AM Results for this HAR[employer]OARD PRESS OPERATOR procedure are in the results section. IR PERCUTANEOUS Routine 05/02/2018 11:45 AM Results for this CHOLANGIOGRAM HAR[employer]ARD PRESS OPERATOR procedure are in the results section. POCT-GLUCOSE METER Routine 05/02/2018 7:39 AM Results for this HAR[employer]ARD PRESS OPERATOR procedure are in the results section. CBC W/PLT COUNT & AUTO Routine 05/02/2018 4:26 AM Results for this DIFFERENTIAL [employer]ARD PRESS OPERATOR procedure are in the results section. PT/APTT Routine 05/02/2018 4:26 AM Results for this [employer]ARD PRESS OPERATOR procedure are in the results section. CBC W/PLT COUNT & AUTO Routine 05/02/2018 4:26 AM Results for this DIFFERENTIAL [employer] PRESS OPERATOR procedure are in the results section. COMPREHENSIVE METABOLIC Routine 05/02/2018 4:26 AM Results for this PANEL [employer]ARD PRESS OPERATOR procedure are in the results section. POCT-GLUCOSE METER Routine 05/01/2018 9:14 PM Results for this HAR[employer]ARD PRESS OPERATOR procedure are in the results section. POCT-GLUCOSE METER Routine 05/01/2018 5:47 PM Results for this HAR[employer]ARD PRESS OPERATOR procedure are in the results section. POCT-GLUCOSE METER Routine 05/01/2018 12:52 PM Results for this HAR[employer]OARD PRESS OPERATOR procedure are in the results section. POCT-GLUCOSE METER Routine 05/01/2018 8:37 AM Results for this HAR[employer]OARD PRESS OPERATOR procedure are in the results section. HEPATIC FUNCTION PANEL [place]OD 05/01/2018 5:55 AM Results for this HAR[employer]ARD PRESS OPERATOR procedure are in the results section. CARBOHYDRATE ANTIGEN 19-9 Routine 05/01/2018 5:55 AM Results for this (CA 19-9) HAR[employer]OARD PRESS OPERATOR procedure are in the results section. BASIC METABOLIC PANEL (7) Routine 05/01/2018 5:55 AM Results for this HAR[employer]OARD PRESS OPERATOR procedure are in the results section. CBC (HEMOGRAM ONLY) Routine 05/01/2018 5:55 AM Results for this HARDBOARD PRESS OPERATOR procedure are in the results section. CT ABDOMEN/PELVIS WITH IV Routine 05/01/2018 4:06 AM Results for this CONTRAST HAR[employer]ARD PRESS OPERATOR procedure are in the results section. CT CHEST WITH IV CONTRAST Routine 05/01/2018 4:06 AM Results for this HAR[employer]OARD PRESS OPERATOR procedure are in the results section. POCT-GLUCOSE METER Routine 04/30/2018 10:19 PM Results for this HAR[employer]OARD PRESS OPERATOR procedure are in the results section. POCT-GLUCOSE METER Routine 04/30/2018 5:27 PM Results for this HAR[employer]OARD PRESS OPERATOR procedure are in the results section. POCT-GLUCOSE METER Routine 04/30/2018 1:01 PM Results for this HARDBOARD PRESS OPERATOR procedure are in the results section. MR ABDOMEN WO CONTRAST DAWOOD 04/30/2018 11:55 AM Results for this MRCP HARDBOARD PRESS OPERATOR procedure are in the results section. PACEMAKER CHECK WITH Routine 04/30/2018 11:47 AM Results for this REPROGRAMMING HARDBOARD PRESS OPERATOR procedure are in the results section. PACEMAKER CHECK Routine 04/30/2018 10:42 AM Results for this HARDBOARD PRESS OPERATOR procedure are in the results section. POCT-GLUCOSE METER Routine 04/30/2018 7:15 AM Results for this HAR[employer]OARD PRESS OPERATOR procedure are in the results section. COMPREHENSIVE METABOLIC Routine 04/30/2018 4:34 AM Results for this PANEL [employer]OARD PRESS OPERATOR procedure are in the results section. CBC (HEMOGRAM ONLY) Routine 04/30/2018 4:34 AM Results for this HARDBOARD PRESS OPERATOR procedure are in the results section. POCT-GLUCOSE METER Routine 04/29/2018 8:37 PM Results for this HARDBOARD PRESS OPERATOR procedure are in the results section. POCT-GLUCOSE METER Routine 04/29/2018 5:09 PM Results for this HARDBOARD PRESS OPERATOR procedure are in the results section. US LIVER BIOPSY Routine 04/29/2018 2:30 PM Results for this HARDBOARD PRESS OPERATOR procedure are in the results section. TISSUE EXAM AP Routine 04/29/2018 1:55 PM Results for this HARDBOARD PRESS OPERATOR procedure are in the results section. APTT [place] 04/29/2018 9:09 AM Results for this HARDBOARD PRESS OPERATOR procedure are in the results section. POCT-GLUCOSE METER Routine 04/29/2018 8:18 AM Results for this HARDBOARD PRESS OPERATOR procedure are in the results section. POCT-GLUCOSE METER Routine 04/28/2018 9:07 PM Results for this HARDBOARD PRESS OPERATOR procedure are in the results section. XR CHEST 1 VIEW [place] 04/28/2018 5:18 PM Results for this PORTABLE/BEDSIDE HARDBOARD PRESS OPERATOR procedure are in the results section. POCT-GLUCOSE METER Routine 04/28/2018 5:17 PM Results for this HARDBOARD PRESS OPERATOR procedure are in the results section. POCT-GLUCOSE METER Routine 04/28/2018 12:10 PM Results for this HARDBOARD PRESS OPERATOR procedure are in the results section. CBC W/PLT COUNT & AUTO Routine 04/28/2018 8:44 AM Results for this DIFFERENTIAL HARDBOARD PRESS OPERATOR procedure are in the results section. BILIRUBIN, DIRECT Routine 04/28/2018 8:44 AM Results for this HARDBOARD PRESS OPERATOR procedure are in the results section. PROTHROMBIN TIME/INR Routine 04/28/2018 8:44 AM Results for this HARDBOARD PRESS OPERATOR procedure are in the results section. COMPREHENSIVE METABOLIC Routine 04/28/2018 8:44 AM Results for this PANEL HARDBOARD PRESS OPERATOR procedure are in the results section. CBC W/PLT COUNT & AUTO Routine 04/28/2018 8:44 AM Results for this DIFFERENTIAL HARDBOARD PRESS OPERATOR procedure are in the results section. POCT-GLUCOSE METER Routine 04/28/2018 8:40 AM Results for this HARDBOARD PRESS OPERATOR procedure are in the results section. CARBOHYDRATE ANTIGEN 19-9 Routine 04/28/2018 4:25 AM Results for this (CA 19-9) HARDBOARD PRESS OPERATOR procedure are in the results section. CARCINOEMBRYONIC ANTIGEN Routine 04/28/2018 4:25 AM Results for this (CEA) HARDBOARD PRESS OPERATOR procedure are in the results section. ALPHA FETOPROTEIN (AFP), Routine 04/28/2018 4:25 AM Results for this TUMOR MARKER HARDBOARD PRESS OPERATOR procedure are in the results section. HEPATITIS C ANTIBODY Routine 04/28/2018 4:25 AM Results for this HARDBOARD PRESS OPERATOR procedure are in the results section. HEPATITIS B PANEL Routine 04/28/2018 4:25 AM Results for this HARDBOARD PRESS OPERATOR procedure are in the results section. HEPATITIS A PANEL Routine 04/28/2018 4:25 AM Results for this HARDBOARD PRESS OPERATOR procedure are in the results section. after 05/26/2017 Results RHYTHM STRIP - SCAN (05/25/2018 12:50 PM HARDBOARD PRESS OPERATOR)Only the most recent of2 resultswithin the time period is included. Narrative Performed At EKG-SCANNED (05/25/2018 12:50 PM HARDBOARD PRESS OPERATOR) Narrative Performed At ARRYTHMIA IMPLANT REPORT - SCAN (05/21/2018 7:50 AM HARDBOARD PRESS OPERATOR) Narrative Performed At Vancomycin level, trough (05/16/2018 12:01 PM HARDBOARD PRESS OPERATOR)Only the most recent of3 resultswithin the time period is included. Vancomycin Tr 16.8 10.0 - 20.0 ug/mL [facility] Specimen Blood - Arm, Right Narrative Performed At Hold further dosing for level > 20, alert [facility] and [facility] Performing Organization Address City/State/[facility] Phone Number [address] [address] [phone] CENTER POC-Glucose meter (05/16/2018 11:00 AM HARDBOARD PRESS OPERATOR)Only the most recent of56 resultswithin the time period is included. POC-Glucose Meter 284 (H)Comment: TESTED AT 70 - 110 mg/dL [facility] [address] [place] [id number] Specimen Blood Performing Organization Address [facility] Phone Number [address] [address] [place] CBC (Hemogram only) (05/16/2018 6:02 AM HARDBOARD PRESS OPERATOR)Only the most recent of8 resultswithin the time period is included. WBC 10.0 3.5 - 10.5 K/L [facility] RBC 3.78 (L) 4.63 - 6.08 M/L [facility] Hemoglobin 10.2 (L) 13.7 - 17.5 GM/DL [facility] Hematocrit 34.8 (L) 40.1 - 51.0 % [facility] MCV 92.1 79.0 - 92.2 fL [facility] MCH 27.0 25.7 - 32.2 pg [facility] MCHC 29.3 (L) 32.3 - 36.5 GM/DL [facility] RDW 15.0 (H) 11.6 - 14.4 % [facility] Platelets 257 150 - 450 K/CU MM [facility] MPV 9.8 9.4 - 12.4 fL [facility] nRBC 0 0 - 0 /100 WBC [facility] Specimen Blood - Arm, Right Performing Organization Address [facility] Phone Number [address] [phone] CENTER Phosphorus (05/16/2018 6:02 AM HARDBOARD PRESS OPERATOR)Only the most recent of6 resultswithin the time period is included. Phosphorus 2.3 2.3 - 4.7 mg/dL [facility] Specimen Blood - Arm, Right Performing Organization Address [facility]/Zipcode Phone Number [address] [phone] [place] Magnesium (05/16/2018 6:02 AM HARDBOARD PRESS OPERATOR)Only the most recent of6 resultswithin the time period is included. Magnesium 1.7 1.6 - 2.6 mg/dL [facility] Specimen Blood - Arm, Right Performing Organization Address [facility] Phone Number [address] [address] [phone] [place] Comprehensive metabolic panel (05/16/2018 6:02 AM HARDBOARD PRESS OPERATOR)Only the most recent of12 resultswithin the time period is included. Protein, Total 6.9 6.0 - 8.3 gm/dL [facility] Albumin 2.9 (L) 3.5 - 5.0 g/dL [facility] Alkaline Phosphatase 151 (H) 40 - 150 U/L [facility] Total Bilirubin 2.4 (H) 0.2 - 1.2 mg/dL [facility] Sodium 142 136 - 145 meq/L [facility] Potassium 4.1 3.5 - 5.1 meq/L [facility] Chloride 109 (H) 98 - 107 meq/L [facility] CO2 23 22 - 29 meq/L [facility] BUN 19 7 - 21 mg/dL [facility] Creatinine 0.95 0.57 - 1.25 mg/dL [facility] Glucose 222 (H) 70 - 105 mg/dL [facility] Calcium 9.1 8.4 - 10.2 mg/dL [facility] AST 30 5 - 34 U/L [facility] ALT 24 6 - 55 U/L [facility] EGFR 79Comment: ESTIMATED GFR mL/min/1.73 sq m [facility] IS NOT ACCURATE [facility] CREATININE CLEARANCE IN PREDICTING GLOMERULAR FILTRATION RATE. ESTIMATED GFR IS NOT APPLICABLE FOR DIALYSIS PATIENTS. Specimen Blood - Arm, Right Performing Organization Address City/State/Zipcode Phone Number [address] [address] [phone] CENTER Vancomycin level, random (05/15/2018 11:46 AM HARDBOARD PRESS OPERATOR) Vancomycin Rm 22.6 ug/mL [facility] Specimen Blood Narrative Performed At Reference Range: No Normals [facility] Performing Organization Address City/[facility] Phone Number [address] [address] CENTER FL small bowel series (05/15/2018 10:31 AM HARDBOARD PRESS OPERATOR) Narrative Performed At FINAL REPORT [facility] Small bowel follow through: Comparison: CT dated May 12, 2018 Clinical History: Metastatic colon cancer, nausea and vomiting After Gastrografin was given orally, multiple images were obtained over the abdomen. FINDINGS: Multiple images were obtained with contrast in the small bowel.The colon was visualized in 40 minutes.The terminal ileum is unremarkable.There is no evidence of obstruction.The small bowel loops are not dilated and the small bowel folds do not appear thickened. Fluoro time: None Number of images obtained: Eight Impression: No evidence of small bowel obstruction Signed: Rowan Sanches MD Report Verified Date/Time:05/15/2018 13:00:51 Reading Location: [facility] C013X Ortho Consult Reading Room Procedure Note Interface, External Ris In - 05/15/2018 1:03 PM HARDBOARD PRESS OPERATOR FINAL REPORT Small bowel follow through: Comparison: CT dated May 12, 2018 Clinical History: Metastatic colon cancer, nausea and vomiting After Gastrografin was given orally, multiple images were obtained over the abdomen. FINDINGS: Multiple images were obtained with contrast in the small bowel. The colon was visualized in 40 minutes. The terminal ileum is unremarkable. There is no evidence of obstruction. The small bowel loops are not dilated and the small bowel folds do not appear thickened. Fluoro time: None Number of images obtained: Eight Impression: No evidence of small bowel obstruction Signed: Rowan Sanches MD Report Verified Date/Time: 05/15/2018 13:00:51 Reading Location: [facility] B1 C013X Ortho Consult Reading Room Performing Organization Address City/State/Zipcode Phone Number [facility] CBC with platelet count + automated diff (05/14/2018 1:53 AM HARDBOARD PRESS OPERATOR)Only the most recent of6 resultswithin the time period is included. WBC 11.2 (H) 3.5 - 10.5 K/L [facility] RBC 3.70 (L) 4.63 - 6.08 M/L [facility] Hemoglobin 10.1 (L) 13.7 - 17.5 GM/DL [facility] Hematocrit 33.0 (L) 40.1 - 51.0 % [facility] MCV 89.2 79.0 - 92.2 fL [facility] MCH 27.3 25.7 - 32.2 pg [facility] MCHC 30.6 (L) 32.3 - 36.5 GM/DL [facility] RDW 15.2 (H) 11.6 - 14.4 % [facility] Platelets 268 150 - 450 K/CU MM [facility] MPV 9.8 9.4 - 12.4 fL [facility] nRBC 0 0 - 0 /100 WBC [facility] % Neutros 75 % [facility] % Lymphs 9 % [facility] % Monos 11 % [facility] % Eos 3 % [facility] % Baso 0 % [facility] # Neutros 8.38 (H) 1.78 - 5.38 K/L [facility] # Lymphs 1.03 (L) 1.32 - 3.57 K/L [facility] # Monos 1.28 (H) 0.30 - 0.82 K/L [facility] # Eos 0.37 0.04 - 0.54 K/L [facility] # Baso 0.05 0.01 - 0.08 K/L [facility] Immature Granulocytes-Relative 1 0 - 1 % [facility] Specimen Blood - Line, Venous Performing Organization Address City/State/Zipcode Phone Number [address] [address] CENTER Prothrombin time/INR (05/14/2018 1:53 AM HARDBOARD PRESS OPERATOR)Only the most recent of3 resultswithin the time period is included. Protime 19.0 (H) 11.7 - 14.7 seconds [facility] INR 1.6 <=5.9 [facility] Specimen Blood - Line, Venous Narrative Performed At RECOMMENDED COUMADIN/WARFARIN INR THERAPY [facility] RANGES STANDARD DOSE: 2.0 - 3.0 Includes: PROPHYLAXIS for venous thrombosis, systemic embolization; TREATMENT for venous thrombosis and/or pulmonary embolus. HIGH RISK: Target INR is 2.5-3.5 for patients with mechanical heart valves. Performing Organization Address City/[facility]/Zipcode Phone Number [address] [phone] CENTER TRANSFUSION SERVICE REPORT - SCAN (05/12/2018 6:01 PM HARDBOARD PRESS OPERATOR) Narrative Performed At Manual Differential (05/12/2018 4:28 AM HARDBOARD PRESS OPERATOR)Only the most recent of2 resultswithin the time period is included. % Neutros 75 % [facility] % Lymphs 8 % [facility] % Monos 7 % [facility] % Eos 1 % [facility] % Baso 1 % [facility] % Promyelo 1 (H) 0 - 0 % [facility] % Bands 6 0 - 10 % [facility] % Atypical Lymphs 1 (H) 0 - 0 % [facility] # Neutros 11.25 (H) 1.78 - 5.38 K/ul [facility] # Lymphs 1.20 (L) 1.32 - 3.57 K/ul [facility] # Monos 1.05 (H) 0.30 - 0.82 K/uL [facility] # Eos 0.15 0.04 - 0.54 K/uL [facility] # Baso 0.15 (H) 0.01 - 0.08 K/uL [facility] # Promyelo 0.15 (H) 0.00 - 0.00 K/uL [facility] # Bands 0.90 (H) 0.00 - 0.80 K/uL [facility] # Atypical Lymphs 0.15 (H) 0.00 - 0.00 K/uL [facility] Total Counted 100 [facility] Platelet Morphology Normal [facility] Smudge Cells Present [facility] Anisocytosis 1+ few [facility] Microcytes 1+ few [facility] Platelet Conc Adequate [facility] Specimen Blood - Arm, Right Narrative Performed At Received comment: [facility] User comments: Slide comments: Performing Organization Address City/State/Zipcode Phone Number [facility] [address] [place] [address] [phone] abdomen/pelvis without iv contrast (05/12/2018 3:58 AM HARDBOARD PRESS OPERATOR) Narrative Performed At FINAL REPORT [facility] EXAM: CT of the abdomen and pelvis, without contrast CLINICAL HISTORY:Sepsis; looking for abdominal infection, has an DERIC; colon cancer with liver mets, s/p biliary drain, ? cholangitis, dilated bile ducts, liver abscess TECHNIQUE: CT of the abdomen and pelvis was performed without the intravenous administration of contrast.This exam was performed according to our departmental dose optimization program which includes automated exposure control, adjustment of the mA and/or kV according to patient's size and/or use of iterative reconstructive technique. COMPARISON:CT abdomen and pelvis 05/01/2018. FINDINGS: Please note study is limited due to lack of intravenous contrast. LOWER CHEST: 2.6 cm right cardiophrenic lymph node, likely metastatic. LIVER: Multiple liver masses again noted. Hepatomegaly. BILE DUCTS: Percutaneous biliary drainage catheter in place. Mild left intrahepatic biliary ductal dilatation. GALL BLADDER:. Status post cholecystectomy. PANCREAS: Within normal limits. SPLEEN: Splenomegaly. ADRENALS: Within normal limits. KIDNEYS/URETERS: Nonspecific bilateral perinephric stranding. Punctate nonobstructing right renal stone. No hydronephrosis. URINARY BLADDER: Collapsed around a Johnson catheter balloon. REPRODUCTIVE ORGANS: Within normal limits. BOWEL/MESENTERY: Prior sigmoid resection and anastomosis. Small hiatal hernia. No bowel obstruction or abnormal wall thickening. Normal appendix. PERITONEUM/RETROPERITONEUM: No free air, free fluid or fluid collection. VESSELS: Calcific atherosclerosis. LYMPH NODES: No abdominal or pelvic lymphadenopathy. SOFT TISSUES: Moderate fat-containing left periumbilical hernia. Multiple small midline ventral hernias containing fat. Small fat-containing bilateral inguinal hernias. BONES: Degenerative changes of the visualized spine. No suspicious osseous lesions IMPRESSION: Limited exam due to lack of intravenous contrast. New percutaneous biliary drainage catheter in place. Otherwise no significant interval change from 05/01/2018. A definite source for sepsis is not elucidated on this noncontrast exam. Signed: Sonu Hyman MD Report Verified Date/Time:05/12/2018 04:26:42 Reading Location: [facility] C013Y CT Body Reading Room Procedure Note Interface, External Ris In - 05/12/2018 4:28 AM HARDBOARD PRESS OPERATOR FINAL REPORT EXAM: CT of the abdomen and pelvis, without contrast CLINICAL HISTORY: Sepsis; looking for abdominal infection, has an DERIC; colon cancer with liver mets, s/p biliary drain, ? cholangitis, dilated bile ducts, liver abscess TECHNIQUE: CT of the abdomen and pelvis was performed without the intravenous administration of contrast. This exam was performed according to our departmental dose optimization program which includes automated exposure control, adjustment of the mA and/or kV according to patient's size and/or use of iterative reconstructive technique. COMPARISON: CT abdomen and pelvis 05/01/2018. FINDINGS: Please note study is limited due to lack of intravenous contrast. LOWER CHEST: 2.6 cm right cardiophrenic lymph node, likely metastatic. LIVER: Multiple liver masses again noted. Hepatomegaly. BILE DUCTS: Percutaneous biliary drainage catheter in place. Mild left intrahepatic biliary ductal dilatation. GALL BLADDER:. Status post cholecystectomy. PANCREAS: Within normal limits. SPLEEN: Splenomegaly. ADRENALS: Within normal limits. KIDNEYS/URETERS: Nonspecific bilateral perinephric stranding. Punctate nonobstructing right renal stone. No hydronephrosis. URINARY BLADDER: Collapsed around a Johnson catheter balloon. REPRODUCTIVE ORGANS: Within normal limits. BOWEL/MESENTERY: Prior sigmoid resection and anastomosis. Small hiatal hernia. No bowel obstruction or abnormal wall thickening. Normal appendix. PERITONEUM/RETROPERITONEUM: No free air, free fluid or fluid collection. VESSELS: Calcific atherosclerosis. LYMPH NODES: No abdominal or pelvic lymphadenopathy. SOFT TISSUES: Moderate fat-containing left periumbilical hernia. Multiple small midline ventral hernias containing fat. Small fat-containing bilateral inguinal hernias. BONES: Degenerative changes of the visualized spine. No suspicious osseous lesions IMPRESSION: Limited exam due to lack of intravenous contrast. New percutaneous biliary drainage catheter in place. Otherwise no significant interval change from 05/01/2018. A definite source for sepsis is not elucidated on this noncontrast exam. Signed: Sonu Hyman MD Report Verified Date/Time: 05/12/2018 04:26:42 Reading Location: [facility] B1 C013Y CT Body Reading Room Performing Organization Address City/State/Zipcode Phone Number [facility] Lactic acid, venous, whole blood (05/11/2018 11:55 PM HARDBOARD PRESS OPERATOR)Only the most recent of2 resultswithin the time period is included. Lactate, Venous 1.2 0.5 - 2.2 mmol/L [facility] Specimen Blood - Arm, Right Narrative Performed At Specimen slightly icteric [facility] Performing Organization Address [facility] Phone Number [address] [address] [phone] CENTER Troponin I (05/11/2018 4:00 PM HARDBOARD PRESS OPERATOR)Only the most recent of3 resultswithin the time period is included. Troponin I 0.02 0.00 - 0.03 ng/mL [facility] Specimen Blood - Line, Venous Narrative Performed At Troponin I (TnI) levels must be interpreted [facility] in the context of the presenting symptoms and the clinical findings. Elevated TnI levels indicate myocardial damage, but are not specific for ischemic heart disease. Elevated TnI levels are seen in patients with other cardiac conditions (including myocarditis and congestive heart failure), and slight TnI elevations occur in patients with other conditions, including sepsis, renal failure, acidosis, acute neurological disease, and persistent tachyarrhythmia. Performing Organization Address City/[facility] Phone Number [address] [phone] [place] Sodium, random urine (05/11/2018 4:00 PM HARDBOARD PRESS OPERATOR) Sodium Urine 37 meq/L [facility] Specimen Urine - Urine, Johnson Narrative Performed At Reference Range: No Normals [facility] Performing Organization Address City/State/Zipcode Phone Number [address] [address] [phone] [place] Protein, random urine (05/11/2018 4:00 PM HARDBOARD PRESS OPERATOR) Protein, Urine 183 (H) 0 - 14 mg/dL [facility] Specimen Urine - Urine, Johnson Performing Organization Address [facility] Phone Number [address] [address] [place] Creatinine, random urine (05/11/2018 4:00 PM HARDBOARD PRESS OPERATOR) Creatinine, Ur 209.0 mg/dL [facility] Specimen Urine - Urine, Johnson Narrative Performed At Reference Range: No Normals [facility] Performing Organization Address [facility] Phone Number [address] [address] [place] Blood gas, arterial (05/11/2018 11:41 AM HARDBOARD PRESS OPERATOR) pH, Arterial 7.36 7.35 - 7.45 [facility] pCO2, Arterial 40 35 - 45 mmHg [facility] pO2, Arterial 105 (H) 80 - 90 mmHg [facility] O2 Sat, Arterial 97.6 (H) 96.0 - 97.0 % [facility] HCO3, Arterial 22 21 - 29 mmol/L [facility] Base Excess, Arterial -3.4 (L) -2.0 - 3.0 mmol/L [facility] Patient Temperature 37.0 C [facility] FIO2 21.0 % [facility] Specimen Blood, Arterial - Arm, Left Performing Organization Address [facility] Phone Number [address] [address] [place] ECHOCARDIOGRAM REPORT - SCAN (05/11/2018 11:21 AM HARDBOARD PRESS OPERATOR) Narrative Performed At 2D Echo W/Doppler (Sepsis Protocol) (05/11/2018 10:25 AM HARDBOARD PRESS OPERATOR) Ejection Fraction [facility] ECHO [facility] Narrative Performed At Transthoracic Echocardiography Report (TTE) [facility]CHO [facility] Demographics Patient NameCOLoulou CLEMENTS of Study05/11/2018 RAY Male Visit [id number] Unknown Room [id number] Number Date of 2Referring Eh Hood MD Age 68 year(s)SonographerVerenice Crowe Employee Relations Director Inga Oakes, Interpreting Eva Mcclain MD RDCSPhysician Procedure Type of Study TTE procedure:2DECHO W DOPPLER(CW/PW/COLOR) ([place]) Indications:Sepsis. Clinical History Cancer Diabetes Hypertension Pacemaker Height: 71 inches Weight: 144.24 kg (318 lbs) BSA: 2.57 m^2 BMI: 44.35 kg/m^2 HR: 66 bpm BP: 119/55 mmHg Summary 1. All of the LV segments contract normally . LVEF by Pak's method of disk assessment is increased (>70%) . 2. The right ventricular chamber size and systolic function are within normal limits. Previous Study No prior studies available for comparison. Signature Findings Technical Quality: Technically adequate exam. Rhythm/BPRegular sinus rhythm during the exam. Left Ventricle The left ventricle is chamber size (by vol index) is normal (male - LVED vol - 34-74ml/m2). Normal LV wa ll thickness. All of the LV segments contract no rmally . Global LV systolic function hyperdynamic . LVEF by Pak's method of disk assessment is in creased (>70%) . The LVEF was measured using Si jenniferon's bi-plane method of disk . Left AtriumLA size is normal (16-34 ml/m2) . Right VentricleThe right ventricular chamber size and systolic fu nction are within normal limits. Right Atrium RA size is normal. Aortic Valve Normal AoV structure and function by limited views an d Doppler. Mitral Valve Normal MV structure and function by available views an d Doppler. Tricuspid ValveTV structure is normal. A trace of tricuspid regurgitation. Un able to estimate peak systolic PA pressure; in adequate TR velocity signal. Pulmonic Valve Normal PV structure and function by limited views an d Doppler. AortaAortic root size (SInus of Valsalva diameter) is no rmal . PericardiumAn echo lucent space is noted consistent with pr ominent pericardial fat pad. IVC/SVC/PA/PV/PleuralThe estimated RA pressure by IVC dynamics 0-5mmHg . Th e inferior vena cava size is normal . Th e inferior vena cava is adequately visualized. Chambers/Structures Left Atrium LA Volume: 87.05 ml LA Area: 26.04 cm^2 LA Vol. Index: 34 ml/m^2 Left Ventricle LVIDd: 5 cm LVIDs: 3.1 cm LV Septum Diastolic: 1 cm LV PW Diastolic: 1 cm LV FS: 38 % LVEDV Pak's:182.93 ml LVESV Pak's:45.89 mlLVEDVI: 71 ml/m^2 LVEF Pak's: 74.9 %LVESVI: 18 ml/m^2 Aorta Ao Root S of Brittanie.: 2.14 cm Ascending Aorta: [address] Junction: 3.1 cm Doppler/Quantitative Measurements Mitral Valve MV Peak E-Wave: 0.83 m/sMV Peak A-Wave: 0.89 m/s E/A Ratio: 0.93 Peak Gradient: 2.76 mmHg Deceleration Time: 312 msec MV Jose Rafael. Peak: Aortic Valve Peak Velocity: 1.69 m/s Mean Velocity: 1.14 m/s Peak Gradient: 11.38 mmHg Mean Gradient: 5.99 mmHg AV VTI: 33.22 cm AV DVI: 0.91 LVOT Peak Velocity: 1.37 m/s Peak Gradient: 7.51 mmHg Mean Velocity: 1 m/sMean Gradient: 4.48 mmHg LVOT VTI: 30.09 cm Procedure Note Interface, External Ris In - 05/11/2018 10:59 AM HARDBOARD PRESS OPERATOR Transthoracic Echocardiography Report (TTE) Demographics Patient Name MARC TOLLIVER Date of Study 05/11/2018 RAY Gender Male Visit Number [id number] Race Unknown Room Number 7108 Number Date of 1950 Referring Eh Guzmanough Physician MD Pawel Age 68 year(s) Liner Replacer Minh Crowe Employee Relations Director Inga Oakes, Interpreting Eva Mcclain MD [facility] Physician Procedure Type of Study TTE procedure:2DECHO W DOPPLER(CW/PW/COLOR) ([place]) Indications:Sepsis. Clinical History Cancer Diabetes Hypertension Pacemaker Height: 71 inches Weight: 144.24 kg (318 lbs) BSA: 2.57 m^2 BMI: 44.35 kg/m^2 HR: 66 bpm BP: 119/55 mmHg Summary 1. All of the LV segments contract normally . LVEF by Pak's method of disk assessment is increased (>70%) . 2. The right ventricular chamber size and systolic function are within normal limits. Previous Study No prior studies available for comparison. Signature Findings Technical Quality: Technically adequate exam. Rhythm/BP Regular sinus rhythm during the exam. Left Ventricle The left ventricle is chamber size (by vol index) is normal (male - LVED vol - 34-74ml/m2). Normal LV wall thickness. All of the LV segments contract normally . Global LV systolic function hyperdynamic . LVEF by Pak's method of disk assessment is increased (>70%) . The LVEF was measured using Pak's bi-plane method of disk . Left Atrium LA size is normal (16-34 ml/m2) . Right Ventricle The right ventricular chamber size and systolic function are within normal limits. Right Atrium RA size is normal. Aortic Valve Normal AoV structure and function by limited views and Doppler. Mitral Valve Normal MV structure and function by available views and Doppler. Tricuspid Valve TV structure is normal. A trace of tricuspid regurgitation. Unable to estimate peak systolic PA pressure; inadequate TR velocity signal. Pulmonic Valve Normal PV structure and function by limited views and Doppler. Aorta Aortic root size (SInus of Valsalva diameter) is normal . Pericardium An echo lucent space is noted consistent with prominent pericardial fat pad. IVC/SVC/PA/PV/Pleural The estimated RA pressure by IVC dynamics 0-5mmHg . The inferior vena cava size is normal . The inferior vena cava is adequately visualized. Chambers/Structures Left Atrium LA Volume: 87.05 ml LA Area: 26.04 cm^2 LA Vol. Index: 34 ml/m^2 Left Ventricle LVIDd: 5 cm LVIDs: 3.1 cm LV Septum Diastolic: 1 cm LV PW Diastolic: 1 cm LV FS: 38 % LVEDV Pak's:182.93 ml LVESV Pak's:45.89 ml LVEDVI: 71 ml/m^2 LVEF Pak's: 74.9 % LVESVI: 18 ml/m^2 Aorta Ao Root S of Brittanie.: 2.14 cm Ascending Aorta: [address] Junction: 3.1 cm Doppler/Quantitative Measurements Mitral Valve MV Peak E-Wave: 0.83 m/s MV Peak A-Wave: 0.89 m/s E/A Ratio: 0.93 Peak Gradient: 2.76 mmHg Deceleration Time: 312 msec MV Jose Rafael. Peak: Aortic Valve Peak Velocity: 1.69 m/s Mean Velocity: 1.14 m/s Peak Gradient: 11.38 mmHg Mean Gradient: 5.99 mmHg AV VTI: 33.22 cm AV DVI: 0.91 LVOT Peak Velocity: 1.37 m/s Peak Gradient: 7.51 mmHg Mean Velocity: 1 m/s Mean Gradient: 4.48 mmHg LVOT VTI: 30.09 cm Performing Organization Address City/State/Zipcode Phone Number [facility] ECG 12 lead (05/11/2018 9:54 AM HARDBOARD PRESS OPERATOR)Only the most recent of2 resultswithin the time period is included. Narrative Performed At Ventricular Rate 66 BPM GE MUSE Atrial Rate 66 BPM P-R Interval 210 ms QRS Duration 94 ms Q-T Interval 430 ms QTC Calculation(Bazett) 450 ms P [place] 54 degrees R [place] 19 degrees T [place] 41 degrees Sinus rhythm with 1st degree A-V block Otherwise normal ECG When compared with ECG of 02-MAY-2018 16:39, No significant change was found Confirmed by MD MONAE, LIAM ([id number]) on 05/11/2018 5:31:41 PM Procedure Note Interface, External Ris In - 05/11/2018 5:31 PM HARDBOARD PRESS OPERATOR Ventricular Rate 66 BPM Atrial Rate 66 BPM P-R Interval 210 ms QRS Duration 94 ms Q-T Interval 430 ms QTC Calculation(Bazett) 450 ms P [place] 54 degrees R [place] 19 degrees T [place] 41 degrees Sinus rhythm with 1st degree A-V block Otherwise normal ECG When compared with ECG of 02-MAY-2018 16:39, No significant change was found Confirmed by MD MONAE, LIAM ([id number]) on 05/11/2018 5:31:41 PM Performing Organization Address [facility] Phone Number BLANK RIVERA ABORH, manual (05/11/2018 8:49 AM HARDBOARD PRESS OPERATOR) ABO Grouping B [facility] Rh Factor POS [facility] Specimen Blood Performing Organization Address [facility] Phone Number [address] [address] [phone] Blood culture #1 (05/11/2018 7:58 AM HARDBOARD PRESS OPERATOR) Result No growth in 5 days [facility] Specimen Blood - Line, Venous Performing Organization Address [facility]/Zipcode Phone Number [facility] MEDICAL [address] [place] [address] [phone] CENTER Urinalysis w/ Microscopic (05/11/2018 7:58 AM HARDBOARD PRESS OPERATOR) Color, UA Red [facility] Clarity, UA Hazy [facility] Specific [place], UA 1.018 1.001 - 1.035 [facility] pH, UA 5.5 5.0 - 8.0 [facility] Protein, UA 50 mg/dL (A) Negative [facility] Glucose, UA Negative Negative [facility] Ketones, UA Negative Negative [facility] Bilirubin, UA Positive (A) Negative [facility] Blood, UA Negative Negative [facility] Nitrite, UA Negative Negative [facility] Leukocytes, UA Negative Negative [facility] Urobilinogen, UA 0.2 0.2 - 1.0 mg/dL [facility] RBC, UA 1 /HPF [facility] WBC, UA 3 /HPF [facility] Bacteria, UA Occasional [facility] Mucus Rare [facility] Squam Epithel, UA 1 /HPF [facility] Hyaline Casts, UA 14 /LPF [facility] Amorphous Crystals Rare [facility] Yeast Few [facility] Specimen Source Urine, Johnson [facility] Specimen Urine - Urine, Johnson Performing Organization Address City/State/Zipcode Phone Number [facility] [address] [place] [address] CENTER Procalcitonin (05/11/2018 7:56 AM HARDBOARD PRESS OPERATOR) Procalcitonin 1.65 (H) <0.05 ng/mL [facility] Specimen Blood - Line, Venous Narrative Performed At SEPSIS RISK (ng/mL) [facility] Low:0.05-0.50 Intermediate: 0.51-2.00 High: >=2.01 Performing Organization Address [facility] Phone Number [address] [address] CENTER Type and screen, automated (05/11/2018 7:56 AM HARDBOARD PRESS OPERATOR) ABO/RH AUTOMATED (BEAKER) B POSITIVE [facility] Ab Scrn NEGATIVE [facility] Specimen Blood - Line, Venous Performing Organization Address [facility] Phone Number [address] [address] TSH/Free T4 If Indicated (05/11/2018 7:56 AM HARDBOARD PRESS OPERATOR) TSH 1.36 0.35 - 4.94 uIU/mL [facility] Specimen Blood - Line, Venous Performing Organization Address [facility] Phone Number [address] [address] CENTER aPTT (05/11/2018 7:56 AM HARDBOARD PRESS OPERATOR)Only the most recent of2 resultswithin the time period is included. PTT 50.9 (H) 22.5 - 36.0 seconds [facility] Specimen Blood - Line, Venous Performing Organization Address [facility] Phone Number [address] [address] CENTER Fibrinogen (05/11/2018 7:56 AM HARDBOARD PRESS OPERATOR) Fibrinogen 629 (H) 225 - 434 mg/dl [facility] Specimen Blood - Line, Venous Performing Organization Address [facility] Phone Number [address] [address] [phone] CENTER D-dimer (05/11/2018 7:56 AM HARDBOARD PRESS OPERATOR) D-Dimer, Quant 2.23 (H) <0.50 MG/L FEU [facility] Specimen Blood - Line, Venous Narrative Performed At Intended Use: The D-Dimer Assay can be used [facility] to aid in the diagnosis of Deep Vein Thrombosis (DVT) and Pulmonary Embolism Disease (PED). In patients with low pre-test probability, various studies concerning STA Liatest D-dimer test have reported that with a cutoff value of 0.50 MG/L FEU, the Negative Predictive Value (NPV) regarding the exclusion of thrombosis is within 95-100% range. Performing Organization Address City/[facility] Phone Number [address] [address] CENTER B-type Natriuretic Factor (BNP) (05/11/2018 7:56 AM HARDBOARD PRESS OPERATOR) BNP 44 0 - 100 pg/mL [facility] Specimen Blood - Line, Venous Performing Organization Address [facility] Phone Number [address] [address] CENTER Lipase (05/11/2018 7:56 AM HARDBOARD PRESS OPERATOR) Lipase 230 (H) 8 - 78 U/L [facility] Specimen Blood - Line, Venous Narrative Performed At Specimen slightly icteric [facility] Performing Organization Address [facility] Phone Number [address] [address] CENTER Hepatic function panel (05/11/2018 7:56 AM HARDBOARD PRESS OPERATOR)Only the most recent of2 resultswithin the time period is included. Protein, Total 7.5 6.0 - 8.3 gm/dL [facility] Albumin 3.4 (L) 3.5 - 5.0 g/dL [facility] Total Bilirubin 3.6 (H) 0.2 - 1.2 mg/dL [facility] Bilirubin, Direct 2.9 (H) 0.1 - 0.5 mg/dL [facility] Alkaline Phosphatase 227 (H) 40 - 150 U/L [facility] AST 97 (H) 5 - 34 U/L [facility] ALT 61 (H) 6 - 55 U/L [facility] Specimen Blood - Line, Venous Narrative Performed At Specimen slightly icteric [facility] Performing Organization Address City/[facility]/Zipcode Phone Number [facility] [address] [place] [phone] CENTER Basic Metabolic Panel (05/11/2018 7:56 AM HARDBOARD PRESS OPERATOR)Only the most recent of2 resultswithin the time period is included. Sodium 138 136 - 145 meq/L [facility] Potassium 4.7 3.5 - 5.1 meq/L [facility] Chloride 104 98 - 107 meq/L [facility] CO2 23 22 - 29 meq/L [facility] BUN 41 (H) 7 - 21 mg/dL [facility] Creatinine 2.94 (H) 0.57 - 1.25 mg/dL [facility] Glucose 167 (H) 70 - 105 mg/dL [facility] Calcium 9.2 8.4 - 10.2 mg/dL [facility] EGFR 22Comment: ESTIMATED GFR IS mL/min/1.73 sq m [facility] NOT ACCURATE CREATININE [facility] CLEARANCE IN PREDICTING GLOMERULAR FILTRATION RATE. ESTIMATED GFR IS NOT APPLICABLE FOR DIALYSIS PATIENTS. Specimen Blood - Line, Venous Narrative Performed At Specimen slightly icteric [facility] Performing Organization Address City/[facility] Phone Number [facility] [address] [place] [address] [phone] [place] XR chest 1 view portable / bedside (05/11/2018 7:07 AM HARDBOARD PRESS OPERATOR)Only the most recent of2 resultswithin the time period is included. Narrative Performed At FINAL REPORT [facility] Clinical History: Dyspnea Comparison Study: April 28, 2018 Findings:The cardiac silhouette is enlarged. A pacer device is seen. The lungs are within normal limits.The pleural spaces are clear.No significant bony or soft tissue abnormalities are seen. There are postsurgical changes in the cervical spine, partially visualized. Impression: Cardiomegaly. No change from previous. Signed: Christian Vela MD Report Verified Date/Time:05/11/2018 07:20:22 Reading Location: [address] Ortho Consult Reading Room Procedure Note Interface, External Ris In - 05/11/2018 9:17 AM HARDBOARD PRESS OPERATOR FINAL REPORT Clinical History: Dyspnea Comparison Study: April 28, 2018 Findings: The cardiac silhouette is enlarged. A pacer device is seen. The lungs are within normal limits. The pleural spaces are clear. No significant bony or soft tissue abnormalities are seen. There are postsurgical changes in the cervical spine, partially visualized. Impression: Cardiomegaly. No change from previous. Signed: Christian Vela MD Report Verified Date/Time: 05/11/2018 07:20:22 Reading Location: [address] Ortho Consult Reading Room Performing Organization Address City/State/Zipcode Phone Number [facility] IR Percutaneous Cholangiogram (05/02/2018 11:45 AM HARDBOARD PRESS OPERATOR) Narrative Performed At FINAL REPORT [facility] Fluoroscopic and ultrasound guided right internal/external biliary drain placement, 05/02/2018. Clinical History: Liver masses, obstructive jaundice. Modality: Sonography and fluoroscopy Slot Router:Paxton More MD, AMEYA Beer Maker:MD Hemal. Conscious sedation: General anesthesia was utilized for the procedure. The patient's vital signs were continuously monitored by anesthesia and remained stable throughout. Estimated Blood Loss:Less than 5 cc. Specimen: None. Fluoroscopy Time: 16.4 min. Reference Air Kerma (Ka, r): 901 mGy. Technique: Informed written consent was obtained. Discussion of risks, benefits, and alternatives were made with the patient. The patient expressed understanding and agreed to proceed.All elements maximal sterile barrier technique was utilized for this procedure, including utilization of sterile scrub solution for skin prep, a large sterile sheet to cover the areas of the patient that were not prepped, and hand hygiene, mask, head covering, and sterile gown for performing radiologist and scrub technologist. Local anesthesia was achieved with 1% lidocaine. Using ultrasound guidance, a 21-gauge Chiba needle was advanced into a right peripheral biliary duct. Contrast injection confirmed placement within the right biliary duct. The right sided bile ducts were dilated. A 0.018 inch wire was advanced through the needle a curled within the more central ducts. An Accustick sheath was advanced over the wire. A 0.035 inch Glidewire in combination with a 4 [place] Zealander Berenstein catheter were then advanced past a hilar stenosis and into the small bowel. This was exchanged for an Amplatz superstiff wire. After a small skin incision was made, the soft tissue tract was dilated with eight New Zealander dilators. A 8.5 New Zealander internal/external biliary drainage catheter was placed with the distal pigtail in the second portion of the duodenum. The wire was then removed, and the pigtail of the catheter was locked.The catheter was then secured onto the skin with 2-0 silk. The patient tolerated the procedure well, without immediate complications. The patient's vital signs remained stable throughout the procedure. Impression: Successful and uncomplicated ultrasound and fluoroscopic guided percutaneous transhepatic cholangiogram and right internal/external biliary drainage catheter placement. Signed: Paxton More MD Report Verified Date/Time:05/03/2018 11:42:37 Reading Location: [address] Body Reading Room Procedure Note Interface, External Ris In - 05/03/2018 11:44 AM HARDBOARD PRESS OPERATOR FINAL REPORT Fluoroscopic and ultrasound guided right internal/external biliary drain placement, 05/02/2018. Clinical History: Liver masses, obstructive jaundice. Modality: Sonography and fluoroscopy Slot Router: Paxton More MD, AMEYA Beer Maker: MD Hemal. Conscious sedation: General anesthesia was utilized for the procedure. The patient's vital signs were continuously monitored by anesthesia and remained stable throughout. Estimated Blood Loss: Less than 5 cc. Specimen: None. Fluoroscopy Time: 16.4 min. Reference Air Kerma (Ka, r): 901 mGy. Technique: Informed written consent was obtained. Discussion of risks, benefits, and alternatives were made with the patient. The patient expressed understanding and agreed to proceed. All elements maximal sterile barrier technique was utilized for this procedure, including utilization of sterile scrub solution for skin prep, a large sterile sheet to cover the areas of the patient that were not prepped, and hand hygiene, mask, head covering, and sterile gown for performing radiologist and scrub technologist. Local anesthesia was achieved with 1% lidocaine. Using ultrasound guidance, a 21-gauge Chiba needle was advanced into a right peripheral biliary duct. Contrast injection confirmed placement within the right biliary duct. The right sided bile ducts were dilated. A 0.018 inch wire was advanced through the needle a curled within the more central ducts. An Accustick sheath was advanced over the wire. A 0.035 inch Glidewire in combination with a 4 [place] Ze[place]ander Berenstein catheter were then advanced past a hilar stenosis and into the small bowel. This was exchanged for an Amplatz superstiff wire. After a small skin incision was made, the soft tissue tract was dilated with eight New Zealander dilators. A 8.5 New Zealander internal/external biliary drainage catheter was placed with the distal pigtail in the second portion of the duodenum. The wire was then removed, and the pigtail of the catheter was locked. The catheter was then secured onto the skin with 2-0 silk. The patient tolerated the procedure well, without immediate complications. The patient's vital signs remained stable throughout the procedure. Impression: Successful and uncomplicated ultrasound and fluoroscopic guided percutaneous transhepatic cholangiogram and right internal/external biliary drainage catheter placement. Signed: Paxton More MD Report Verified Date/Time: 05/03/2018 11:42:37 Reading Location: [place] [address] Angio Body Reading Room Performing Organization Address City/State/Zipcode Phone Number GE RIS PT/aPTT (05/02/2018 4:26 AM HARDBOARD PRESS OPERATOR) Protime 14.0 11.7 - 14.7 seconds [facility] INR 1.1 <=5.9 [facility] PTT 37.7 (H) 22.5 - 36.0 seconds [facility] Specimen Blood - Arm, Right Narrative Performed At RECOMMENDED COUMADIN/WARFARIN INR THERAPY [facility] RANGES STANDARD DOSE: 2.0 - 3.0 Includes: PROPHYLAXIS for venous thrombosis, systemic embolization; TREATMENT for venous thrombosis and/or pulmonary embolus. HIGH RISK: Target INR is 2.5-3.5 for patients with mechanical heart valves. Per radiology. Per radiology. Performing Organization Address City/State/Zipcode Phone Number [facility] [address] [place] [address] CENTER Carbohydrate antigen 19-9 (CA 19-9) (05/01/2018 5:55 AM HARDBOARD PRESS OPERATOR)Only the most recent of2 resultswithin the time period is included. CA 19-9 2081 (H) <34 U/mL [facility] Comment: This test was performed using the Siemens (Backyard Brains) Chemiluminescent method. Values obtained from different assay methods cannot be used interchangeably. CA19-9 levels, regardless of value, should not be interpreted as absolute evidence of the presence or absence of disease. Specimen Blood - Arm, Left Narrative Performed At Performing Lab [facility] [employer] [place] [id number] [place] [address] Maty Ivey MD, PhD, AMEYA Performing Organization Address City/[facility] Phone Number [facility] [place] [address] [facility] CT abdomen/pelvis with IV contrast (05/01/2018 4:06 AM HARDBOARD PRESS OPERATOR) Narrative Performed At FINAL REPORT [employer] [facility] TECHNIQUE: CT of the chest, abdomen, and pelvis WITH intravenous contrast and WITHOUT oral contrast. Dose modulation, iterative reconstruction, and/or weight-based adjustment of the mA/kV was utilized to reduce the radiation dose to as low as reasonably achievable. INDICATION: Neoplasm: chest, metastatic, staging. COMPARISON: Outside facility CT from 04/27/2018. MRCP from 04/30/2018.. FINDINGS: LINES/TUBES: Left chest pacer with leads in the right atrium and ventricle. LUNGS AND AIRWAYS: A nodule in the right upper lobe measures 0.8 cm on axial image 18. A right lower lobe pulmonary nodule measures 1.5 cm on axial image 44. Branching nodular opacities in the left upper lobe measure up to 1.7 cm in conglomerate on axial image 21. PLEURA: The pleural spaces are clear. HEART AND MEDIASTINUM: The thyroid is enlarged and diffusely heterogeneous with nodules which measure up to 2.6 cm. Given the extensive masses in the liver, no further imaging is necessary. Enlarged submental lymph nodes measure up to 1.1 cm and 1.3 cm in the subcarinal region on axial images 34 and 33. Enlarged, centrally necrotic precardiac lymph node measures 2.2 x 4 cm. The heart and pericardium are within normal limits. Mild coronary arterial calcifications. A right upper paratracheal lymph node measures 0.7 cm in short axis dimension on axial image 16. HEPATOBILIARY: The liver is enlarged. The hepatic masses were better seen on the prior MRCP and outside hospital CT given differences in phase of contrast. The largest hepatic mass occupies all of segment IV and appears to extend into the hepatic hilum, segment III, segment VIII, and segment V. This causes moderate bilobar intrahepatic dilation. This mass measures at least 13.2 cm in longest dimension. A mass in segment IV/VIII measures up to 5.7 cm on axial image 49. The masses in segments VII, VIII, II, and III were better seen on the prior MRCP. SPLEEN: 17.4 cm splenomegaly. PANCREAS: No focal masses or ductal dilatation. ADRENALS: No adrenal nodules. KIDNEYS/URETERS: No hydronephrosis or masses. A right lower pole nonobstructing stone measures 3 mm. PELVIC ORGANS/BLADDER: Unremarkable. PERITONEUM/RETROPERITONEUM: No free air or fluid. Several ventral hernias containing omental fat. The largest is in the periumbilical region and has a peritoneal opening of 5.4 cm. LYMPH NODES: Periportal lymph node measures up to 1.9 cm in short axis dimension. VESSELS: Unremarkable. GI TRACT: Prior sigmoidectomy. Prior gastric surgery. BONES AND SOFT TISSUES: Partially visualized anterior cervical disc fusion. Mild degenerative changes of the visualized spine. IMPRESSION: 1.The extensive hepatic masses were better seen on the prior MRCP. However, the largest segment IV mass appears to extend into segments III, V, and VIII as well. In addition, this extends into the hepatic hilum and results in bilateral lobar ductal dilation. These findings are most concerning for cholangiocarcinoma. However, given the prior sigmoidectomy, if the patient has had prior colon cancer, these could be metastases as well. 2.The precardiac lymph node is consistent with metastatic disease, and the other prominent lymph nodes are concerning for metastatic disease. The prominent periportal lymph node measures up to 1.9 cm in short axis dimension and is indeterminate. 3.The three bilateral lung nodules which measure up to 1.7 cm are indeterminate but concerning for metastases. However, the morphology is slightly atypical for metastasis. 4.A right lower pole 3 mm stone is nonobstructing. Signed: Theron Goetz MD Report Verified Date/Time:05/01/2018 08:50:31 Reading Location: [facility] Diagnostic Imaging Reading Room - [place] [address] Procedure Note Interface, External Ris In - 05/01/2018 8:52 AM HARDBOARD PRESS OPERATOR FINAL REPORT TECHNIQUE: CT of the chest, abdomen, and pelvis WITH intravenous contrast and WITHOUT oral contrast. Dose modulation, iterative reconstruction, and/or weight-based adjustment of the mA/kV was utilized to reduce the radiation dose to as low as reasonably achievable. INDICATION: Neoplasm: chest, metastatic, staging. COMPARISON: Outside facility CT from 04/27/2018. MRCP from 04/30/2018.. FINDINGS: LINES/TUBES: Left chest pacer with leads in the right atrium and ventricle. LUNGS AND AIRWAYS: A nodule in the right upper lobe measures 0.8 cm on axial image 18. A right lower lobe pulmonary nodule measures 1.5 cm on axial image 44. Branching nodular opacities in the left upper lobe measure up to 1.7 cm in conglomerate on axial image 21. PLEURA: The pleural spaces are clear. HEART AND MEDIASTINUM: The thyroid is enlarged and diffusely heterogeneous with nodules which measure up to 2.6 cm. Given the extensive masses in the liver, no further imaging is necessary. Enlarged submental lymph nodes measure up to 1.1 cm and 1.3 cm in the subcarinal region on axial images 34 and 33. Enlarged, centrally necrotic precardiac lymph node measures 2.2 x 4 cm. The heart and pericardium are within normal limits. Mild coronary arterial calcifications. A right upper paratracheal lymph node measures 0.7 cm in short axis dimension on axial image 16. HEPATOBILIARY: The liver is enlarged. The hepatic masses were better seen on the prior MRCP and outside hospital CT given differences in phase of contrast. The largest hepatic mass occupies all of segment IV and appears to extend into the hepatic hilum, segment III, segment VIII, and segment V. This causes moderate bilobar intrahepatic dilation. This mass measures at least 13.2 cm in longest dimension. A mass in segment IV/VIII measures up to 5.7 cm on axial image 49. The masses in segments VII, VIII, II, and III were better seen on the prior MRCP. SPLEEN: 17.4 cm splenomegaly. PANCREAS: No focal masses or ductal dilatation. ADRENALS: No adrenal nodules. KIDNEYS/URETERS: No hydronephrosis or masses. A right lower pole nonobstructing stone measures 3 mm. PELVIC ORGANS/BLADDER: Unremarkable. PERITONEUM/RETROPERITONEUM: No free air or fluid. Several ventral hernias containing omental fat. The largest is in the periumbilical region and has a peritoneal opening of 5.4 cm. LYMPH NODES: Periportal lymph node measures up to 1.9 cm in short axis dimension. VESSELS: Unremarkable. GI TRACT: Prior sigmoidectomy. Prior gastric surgery. BONES AND SOFT TISSUES: Partially visualized anterior cervical disc fusion. Mild degenerative changes of the visualized spine. IMPRESSION: 1.The extensive hepatic masses were better seen on the prior MRCP. However, the largest segment IV mass appears to extend into segments III, V, and VIII as well. In addition, this extends into the hepatic hilum and results in bilateral lobar ductal dilation. These findings are most concerning for cholangiocarcinoma. However, given the prior sigmoidectomy, if the patient has had prior colon cancer, these could be metastases as well. 2.The precardiac lymph node is consistent with metastatic disease, and the other prominent lymph nodes are concerning for metastatic disease. The prominent periportal lymph node measures up to 1.9 cm in short axis dimension and is indeterminate. 3.The three bilateral lung nodules which measure up to 1.7 cm are indeterminate but concerning for metastases. However, the morphology is slightly atypical for metastasis. 4.A right lower pole 3 mm stone is nonobstructing. Signed: Theron Goetz MD Report Verified Date/Time: 05/01/2018 08:50:31 Reading Location: [facility] Diagnostic Imaging Reading Room - [place] [id number] Performing Organization Address City/State/Zipcode Phone Number [facility] CT chest with IV contrast (05/01/2018 4:06 AM HARDBOARD PRESS OPERATOR) Narrative Performed At FINAL REPORT [facility] TECHNIQUE: CT of the chest, abdomen, and pelvis WITH intravenous contrast and WITHOUT oral contrast. Dose modulation, iterative reconstruction, and/or weight-based adjustment of the mA/kV was utilized to reduce the radiation dose to as low as reasonably achievable. INDICATION: Neoplasm: chest, metastatic, staging. COMPARISON: Outside facility CT from 04/27/2018. MRCP from 04/30/2018.. FINDINGS: LINES/TUBES: Left chest pacer with leads in the right atrium and ventricle. LUNGS AND AIRWAYS: A nodule in the right upper lobe measures 0.8 cm on axial image 18. A right lower lobe pulmonary nodule measures 1.5 cm on axial image 44. Branching nodular opacities in the left upper lobe measure up to 1.7 cm in conglomerate on axial image 21. PLEURA: The pleural spaces are clear. HEART AND MEDIASTINUM: The thyroid is enlarged and diffusely heterogeneous with nodules which measure up to 2.6 cm. Given the extensive masses in the liver, no further imaging is necessary. Enlarged submental lymph nodes measure up to 1.1 cm and 1.3 cm in the subcarinal region on axial images 34 and 33. Enlarged, centrally necrotic precardiac lymph node measures 2.2 x 4 cm. The heart and pericardium are within normal limits. Mild coronary arterial calcifications. A right upper paratracheal lymph node measures 0.7 cm in short axis dimension on axial image 16. HEPATOBILIARY: The liver is enlarged. The hepatic masses were better seen on the prior MRCP and outside hospital CT given differences in phase of contrast. The largest hepatic mass occupies all of segment IV and appears to extend into the hepatic hilum, segment III, segment VIII, and segment V. This causes moderate bilobar intrahepatic dilation. This mass measures at least 13.2 cm in longest dimension. A mass in segment IV/VIII measures up to 5.7 cm on axial image 49. The masses in segments VII, VIII, II, and III were better seen on the prior MRCP. SPLEEN: 17.4 cm splenomegaly. PANCREAS: No focal masses or ductal dilatation. ADRENALS: No adrenal nodules. KIDNEYS/URETERS: No hydronephrosis or masses. A right lower pole nonobstructing stone measures 3 mm. PELVIC ORGANS/BLADDER: Unremarkable. PERITONEUM/RETROPERITONEUM: No free air or fluid. Several ventral hernias containing omental fat. The largest is in the periumbilical region and has a peritoneal opening of 5.4 cm. LYMPH NODES: Periportal lymph node measures up to 1.9 cm in short axis dimension. VESSELS: Unremarkable. GI TRACT: Prior sigmoidectomy. Prior gastric surgery. BONES AND SOFT TISSUES: Partially visualized anterior cervical disc fusion. Mild degenerative changes of the visualized spine. IMPRESSION: 1.The extensive hepatic masses were better seen on the prior MRCP. However, the largest segment IV mass appears to extend into segments III, V, and VIII as well. In addition, this extends into the hepatic hilum and results in bilateral lobar ductal dilation. These findings are most concerning for cholangiocarcinoma. However, given the prior sigmoidectomy, if the patient has had prior colon cancer, these could be metastases as well. 2.The precardiac lymph node is consistent with metastatic disease, and the other prominent lymph nodes are concerning for metastatic disease. The prominent periportal lymph node measures up to 1.9 cm in short axis dimension and is indeterminate. 3.The three bilateral lung nodules which measure up to 1.7 cm are indeterminate but concerning for metastases. However, the morphology is slightly atypical for metastasis. 4.A right lower pole 3 mm stone is nonobstructing. Signed: Theron Goetz MD Report Verified Date/Time:05/01/2018 08:50:31 Reading Location: [facility] Diagnostic Imaging Reading Room - [place] [address] Procedure Note Interface, External Ris In - 05/01/2018 8:52 AM HARDBOARD PRESS OPERATOR FINAL REPORT TECHNIQUE: CT of the chest, abdomen, and pelvis WITH intravenous contrast and WITHOUT oral contrast. Dose modulation, iterative reconstruction, and/or weight-based adjustment of the mA/kV was utilized to reduce the radiation dose to as low as reasonably achievable. INDICATION: Neoplasm: chest, metastatic, staging. COMPARISON: Outside facility CT from 04/27/2018. MRCP from 04/30/2018.. FINDINGS: LINES/TUBES: Left chest pacer with leads in the right atrium and ventricle. LUNGS AND AIRWAYS: A nodule in the right upper lobe measures 0.8 cm on axial image 18. A right lower lobe pulmonary nodule measures 1.5 cm on axial image 44. Branching nodular opacities in the left upper lobe measure up to 1.7 cm in conglomerate on axial image 21. PLEURA: The pleural spaces are clear. HEART AND MEDIASTINUM: The thyroid is enlarged and diffusely heterogeneous with nodules which measure up to 2.6 cm. Given the extensive masses in the liver, no further imaging is necessary. Enlarged submental lymph nodes measure up to 1.1 cm and 1.3 cm in the subcarinal region on axial images 34 and 33. Enlarged, centrally necrotic precardiac lymph node measures 2.2 x 4 cm. The heart and pericardium are within normal limits. Mild coronary arterial calcifications. A right upper paratracheal lymph node measures 0.7 cm in short axis dimension on axial image 16. HEPATOBILIARY: The liver is enlarged. The hepatic masses were better seen on the prior MRCP and outside hospital CT given differences in phase of contrast. The largest hepatic mass occupies all of segment IV and appears to extend into the hepatic hilum, segment III, segment VIII, and segment V. This causes moderate bilobar intrahepatic dilation. This mass measures at least 13.2 cm in longest dimension. A mass in segment IV/VIII measures up to 5.7 cm on axial image 49. The masses in segments VII, VIII, II, and III were better seen on the prior MRCP. SPLEEN: 17.4 cm splenomegaly. PANCREAS: No focal masses or ductal dilatation. ADRENALS: No adrenal nodules. KIDNEYS/URETERS: No hydronephrosis or masses. A right lower pole nonobstructing stone measures 3 mm. PELVIC ORGANS/BLADDER: Unremarkable. PERITONEUM/RETROPERITONEUM: No free air or fluid. Several ventral hernias containing omental fat. The largest is in the periumbilical region and has a peritoneal opening of 5.4 cm. LYMPH NODES: Periportal lymph node measures up to 1.9 cm in short axis dimension. VESSELS: Unremarkable. GI TRACT: Prior sigmoidectomy. Prior gastric surgery. BONES AND SOFT TISSUES: Partially visualized anterior cervical disc fusion. Mild degenerative changes of the visualized spine. IMPRESSION: 1.The extensive hepatic masses were better seen on the prior MRCP. However, the largest segment IV mass appears to extend into segments III, V, and VIII as well. In addition, this extends into the hepatic hilum and results in bilateral lobar ductal dilation. These findings are most concerning for cholangiocarcinoma. However, given the prior sigmoidectomy, if the patient has had prior colon cancer, these could be metastases as well. 2.The precardiac lymph node is consistent with metastatic disease, and the other prominent lymph nodes are concerning for metastatic disease. The prominent periportal lymph node measures up to 1.9 cm in short axis dimension and is indeterminate. 3.The three bilateral lung nodules which measure up to 1.7 cm are indeterminate but concerning for metastases. However, the morphology is slightly atypical for metastasis. 4.A right lower pole 3 mm stone is nonobstructing. Signed: Theron Goetz MD Report Verified Date/Time: 05/01/2018 08:50:31 Reading Location: [facility] Diagnostic Imaging Reading Room - [place] [address] Performing Organization Address City/State/Zipcode Phone Number [facility] MR abdomen without IV contrast MRCP (04/30/2018 11:55 AM HARDBOARD PRESS OPERATOR) Narrative Performed At FINAL REPORT [facility] TECHNIQUE: MRI of the abdomen and MRCP WITHOUT intravenous contrast. 3-D volume reconstructions were obtained to evaluate the biliary ductal system. INDICATION: 68-year-old man with painless jaundice . COMPARISON: Outside abdomen and pelvis CT 04/27/2018. FINDINGS: ABSENCE OF INTRAVENOUS CONTRAST DECREASES SENSITIVITY FOR DETECTION OF FOCAL LESIONS AND VASCULAR PATHOLOGY. LOWER THORAX: Unremarkable. LIVER: Multiple T2 hyperintense masses throughout both lobes of the liver, the largest mass measures approximately 11.6 x 7 cm in segment IV. BILIARY: Prior cholecystectomy. Moderate intrahepatic biliary ductal dilatation throughout the right hepatic lobe with abrupt cut off of the ducts in the region of the common hepatic duct adjacent to the largest liver mass in segment IV. Moderate intrahepatic biliary ductal dilatation in segment II/III with abrupt cut off of the ducts in the region of the segment IV mass. The common duct is not clearly identified. SPLEEN: The spleen is enlarged, measuring 17 cm in greatest dimension. PANCREAS: The pancreatic head, neck, and body are not well evaluated secondary to artifact in this region. Scattered cystic lesions in the visualized portions of the pancreatic tail, the largest measures 0.8 x 1.3 cm. ADRENALS: No adrenal nodules. KIDNEYS/URETERS: No hydronephrosis or solid mass lesions. PERITONEUM/RETROPERITONEUM: No free fluid. LYMPH NODES: No lymphadenopathy. VESSELS: Unremarkable. GI TRACT: No distention or wall thickening. BONES AND SOFT TISSUES: Unremarkable. IMPRESSION: Multiple liver masses. Moderate intrahepatic biliary ductal dilatation throughout the right hepatic lobe and in segment II/III due to obstruction from the largest liver mass centered in segment IV. The common duct is not clearly identified. Involvement of the common duct by tumor cannot be excluded. Cystic lesions in the pancreatic tail measuring up to 1.3 cm. Differential considerations include intraductal papillary mucinous neoplasm (IPMN) and pseudocyst. Splenomegaly. Signed: Tao Desai MD Report Verified Date/Time:04/30/2018 12:29:35 Reading Location: [address] Body Reading Room Procedure Note Interface, External Ris In - 04/30/2018 12:31 PM HARDBOARD PRESS OPERATOR FINAL REPORT TECHNIQUE: MRI of the abdomen and MRCP WITHOUT intravenous contrast. 3-D volume reconstructions were obtained to evaluate the biliary ductal system. INDICATION: 68-year-old man with painless jaundice . COMPARISON: Outside abdomen and pelvis CT 04/27/2018. FINDINGS: ABSENCE OF INTRAVENOUS CONTRAST DECREASES SENSITIVITY FOR DETECTION OF FOCAL LESIONS AND VASCULAR PATHOLOGY. LOWER THORAX: Unremarkable. LIVER: Multiple T2 hyperintense masses throughout both lobes of the liver, the largest mass measures approximately 11.6 x 7 cm in segment IV. BILIARY: Prior cholecystectomy. Moderate intrahepatic biliary ductal dilatation throughout the right hepatic lobe with abrupt cut off of the ducts in the region of the common hepatic duct adjacent to the largest liver mass in segment IV. Moderate intrahepatic biliary ductal dilatation in segment II/III with abrupt cut off of the ducts in the region of the segment IV mass. The common duct is not clearly identified. SPLEEN: The spleen is enlarged, measuring 17 cm in greatest dimension. PANCREAS: The pancreatic head, neck, and body are not well evaluated secondary to artifact in this region. Scattered cystic lesions in the visualized portions of the pancreatic tail, the largest measures 0.8 x 1.3 cm. ADRENALS: No adrenal nodules. KIDNEYS/URETERS: No hydronephrosis or solid mass lesions. PERITONEUM/RETROPERITONEUM: No free fluid. LYMPH NODES: No lymphadenopathy. VESSELS: Unremarkable. GI TRACT: No distention or wall thickening. BONES AND SOFT TISSUES: Unremarkable. IMPRESSION: Multiple liver masses. Moderate intrahepatic biliary ductal dilatation throughout the right hepatic lobe and in segment II/III due to obstruction from the largest liver mass centered in segment IV. The common duct is not clearly identified. Involvement of the common duct by tumor cannot be excluded. Cystic lesions in the pancreatic tail measuring up to 1.3 cm. Differential considerations include intraductal papillary mucinous neoplasm (IPMN) and pseudocyst. Splenomegaly. Signed: Tao Desai MD Report Verified Date/Time: 04/30/2018 12:29:35 Reading Location: [facility] [id number] CT Body Reading Room Performing Organization Address City/State/Zipcode Phone Number [facility] Pacemaker check with reprogramming (04/30/2018 11:47 AM HARDBOARD PRESS OPERATOR) Narrative Performed At Olive Wyatt RN 04/30/2018 11:48 AM Seen in MRI. Performed pacemaker interrogation per order. MRI SureScan disabled, device returned to original settings. Blue band removed from wrist.Preliminary report placed under cardiac studies in chart. OLIVE WYATT RN 04/30/2018 11:47 AM [id number] Pacemaker Check (04/30/2018 10:42 AM HARDBOARD PRESS OPERATOR) Narrative Performed At Olive Wyatt RN 04/30/2018 10:43 AM Performed pacemaker interrogation per order. Device programmed MRI SureScan, ODO. Preliminary report placed under cardiac studies in chart. 1. Normal device function 2. No events detected 3. Blue band placed on R wrist OLIVE WYATT RN 04/30/2018 10:42 AM [id number] US liver biopsy (04/29/2018 2:30 PM HARDBOARD PRESS OPERATOR) Narrative Performed At FINAL REPORT [facility] Ultrasound guided liver biopsy. Clinical History: Multiple liver masses. Comparison Study: Outside CT scan dated April 27, 2018. Informed consent was obtained from the patient and the risks of the procedure were explained including bleeding, infection, pneumothorax and visceral injury. Sedation: 1% Xylocaine was used as local analgesia. 0.5 mg of Versed and 25 micrograms of fentanyl were administered using the moderate sedation protocol under the supervision of a physician. Moderate Sedation Time: 20 minutes. Technique: Using sterile technique, real-time ultrasound guidance and an 18 gauge core biopsy needle, a two pass core biopsy of the large mass effect in the left lobe of the liver of the liver was performed. No immediate complications developed. Post procedure ultrasound demonstrates no hematoma. Patient disposition: The patient will be monitored for several hours to ensure that no symptoms develop. Impression: Successful core biopsy of the left lobe infiltrative liver mass under ultrasound guidance. Signed: Christian Vela MD Report Verified Date/Time:04/29/2018 15:41:29 Reading Location: [address] Ultrasound Reading Room Procedure Note Interface, External Ris In - 04/29/2018 4:05 PM HARDBOARD PRESS OPERATOR FINAL REPORT Ultrasound guided liver biopsy. Clinical History: Multiple liver masses. Comparison Study: Outside CT scan dated April 27, 2018. Informed consent was obtained from the patient and the risks of the procedure were explained including bleeding, infection, pneumothorax and visceral injury. Sedation: 1% Xylocaine was used as local analgesia. 0.5 mg of Versed and 25 micrograms of fentanyl were administered using the moderate sedation protocol under the supervision of a physician. Moderate Sedation Time: 20 minutes. Technique: Using sterile technique, real-time ultrasound guidance and an 18 gauge core biopsy needle, a two pass core biopsy of the large mass effect in the left lobe of the liver of the liver was performed. No immediate complications developed. Post procedure ultrasound demonstrates no hematoma. Patient disposition: The patient will be monitored for several hours to ensure that no symptoms develop. Impression: Successful core biopsy of the left lobe infiltrative liver mass under ultrasound guidance. Signed: Christian Vela MD Report Verified Date/Time: 04/29/2018 15:41:29 Reading Location: [address] Ultrasound Reading Room Performing Organization Address City/State/Zipcode Phone Number [facility] Tissue Exam (04/29/2018 1:55 PM HARDBOARD PRESS OPERATOR) Case Report Surgical Pathology Report Case: [id number] [facility] Authorizing Provider:Ping Miramontes DCollected: 04/29/2018 1355 [facility] Ordering Location: [address] Received: 04/29/2018 1433 Service Pathologist: Santosh Cardozo MD Specimen:Biopsy, Liver ADDENDUM Immunostains for MSH2, MSH6, MLH1, and PMS2 performed on block A1 demonstrates preservation of expression of all markers in tumor cells. The findings are compatible with a micro-satellite stable immunoprofile. [facility] Additional CPT codes: 14345c7 DIAGNOSIS PART A LIVER BIOPSY FOR SUSPECTED MASS: [facility] MODERATELY DIFFERENTIATED ADENOCARCINOMA. [facility] SEE DIAGNOSTIC COMMENT. Signing Pathologist Direct Phone Line: [phone] COMMENT Immunohistochemical studies [facility] performed on block A1 [facility] demonstrate the tumor cells to be positive for CK20, CDX2, and CK19. Weak focal staining for TTF-1 is present, however tumor cells are predominantly negative. The tumor cells are negative for CK7, synaptophysin, p40, and PSA. The morphology and immunoprofile are most compatible with an adenocarcinoma of colonic origin, however correlation with clinical findings and imaging studies is required for complete interpretation. CPT Code(s) 42949, 67286, 71611k1 [facility] CLINICAL HISTORY Liver mass [facility] SPECIMEN SOURCE Liver mass biopsy [facility] GROSS DESCRIPTION The specimen is received in a [facility] formalin-filled container [facility] labeled with the patient's information and labeled "liver mass biopsy" and consists of three white core biopsies ranging in length from 0.4 to 1 cm submitted entirely in A1. CG/ew MICROSCOPIC DESCRIPTION Performed. [facility] SPECIAL STUDIES The interpretation of this case included the use of immunohistochemistry or special stains. [facility] BLOCK A1- SYNAPTOPHYSIN, P40, PSA, CDX2, CK19, TTF-1, CK7, CK20 [facility] Immunohistochemistry technical testing was performed at [facility], Pathology Laboratory where it was developed and its performance characteristics were determined. It has not be en cleared or approved by the U.S. Food and Drug Administration. The FDA has determined that such clearance or approval is not necessary. The test is used for clinical purposes. It should not be regarde d as investigational or for research. This laboratory is certified under the Clinical Laboratory Improvement Amendments of 1988 (CLIA-88) as qualified to perform high complexity clinical laboratory testing. Specimen Tissue - Biopsy, Liver Performing Organization Address [facility] Phone Number [address] [address] [phone] [place] Bilirubin, direct (04/28/2018 8:44 AM HARDBOARD PRESS OPERATOR) Bilirubin, Direct 6.4 (H) 0.1 - 0.5 mg/dL [facility] Specimen Blood - Arm, Left Performing Organization Address [facility] Phone Number [address] [address] [phone] [place] Hepatitis B Panel (04/28/2018 4:25 AM HARDBOARD PRESS OPERATOR) Hep B Core Total Ab NON-REACTIVE Nonreactive [facility] Hep B S Ab <8.0 <8.0 mIU/mL [facility] hepatitis B Surface Ag NON-REACTIVE Nonreactive [facility] Specimen Blood - Arm, Right Performing Organization Address [facility] Phone Number [address] [address] [place] Hepatitis A Panel (04/28/2018 4:25 AM [employer] PRESS OPERATOR) Hep A IgM HEPATITIS A TEST NEGATIVE Nonreactive [facility] Hep A IgG Reactive (A) Nonreactive [facility] Specimen Blood - Arm, Right Performing Organization Address [facility] Phone Number [address] [address] [place] Hepatitis C antibody (04/28/2018 4:25 AM [employer] PRESS OPERATOR) Hepatitis C Ab NON-REACTIVE Nonreactive [facility] Specimen Blood - Arm, Right Performing Organization Address [facility]/Zipcode Phone Number [facility] [address] [place] [address] CENTER Alpha fetoprotein (AFP), tumor marker (04/28/2018 4:25 AM HARDBO[employer] PRESS OPERATOR) Alpha-Fetoprotein 2.3 <10.0 ng/mL [facility] Specimen Blood - Arm, Right Performing Organization Address [facility] Phone Number [facility] [address] [place] [address] [phone] CENTER Carcinoembryonic Antigen (CEA) (04/28/2018 4:25 AM HARDBO[employer] PRESS OPERATOR) CEA, SERUM >1500.0 (H) 0.0 - 5.0 ng/mL [facility] Specimen Blood - Arm, Right Performing Organization Address [facility] Phone Number [address] [address] [phone] CENTER after 05/26/2017 Insurance Payer Benefit Plan / Group Subscriber ID Type Phone Address MEDICARE MEDICARE PART A xxxxxxxxxx Medicare AETNA - MGD CARE AETNA SELECT US ACCESS xxxxxxxxxx HMO/POS (Home) [place] [phone] (Work) Advance Directives For more information, please contact:[address] [phone] Code Status Date Activated Date Inactivated Comments Partial Code 05/11/2018 3:50 PM This code status was determined by: Patient Drug Protocol After Arrest Occurs? No Mechanical Ventilation with Intubation? No Bag/Mask? No Internal/External Pacemaker? No Transfer to Critical Care? Yes Chest Compressions? No Defibrillation/Cardioversion? No Partial Code 05/11/2018 6:49 AM 05/11/2018 3:50 PM This code status was determined by: Patient Drug Protocol After Arrest Occurs? No Mechanical Ventilation with Intubation? Yes Bag/Mask? Yes Internal/External Pacemaker? No Transfer to Critical Care? Yes Chest Compressions? No Defibrillation/Cardioversion? No Full Code 04/28/2018 2:53 AM 05/11/2018 6:04 AM This code status was determined by: Patient
--- OUTSIDE RECORDS SUMMARY | 2018-05-27 17:31 | XMS REPORT ---
:1950 [facility] Address [address] [place] [address] [address] [place] [address] Care Team Providers Name Role Phone CHAPARRO SHARMA Unavailable Unavailable JAIMIE CARIASY MARY HAI Unavailable Unavailable Problems This patient has no known problems. Allergies, Adverse Reactions, Alerts This patient has no known allergies or adverse reactions. Medications This patient has no known medications. Results Test Description Test Time Test Comments Text Results Atomic Results Result Comments TISSUE EXAM 2018-05-20 15:29:00 Surgical Pathology Report Case: [id number] Authorizing Provider: Ping Miramontes Collected: 04/29/2018 1355 Ordering Location: [address] Received: 04/29/2018 1433 Service Pathologist: Santosh Cardozo MD Specimen: Biopsy, Liver Immunostains for MSH2, MSH6, MLH1, and PMS2 performed on block A1 demonstrates preservation of expression of all markers in tumor cells. The findings are compatible with a micro-satellite stable immunoprofile.Additional CPT codes: [id number] electronically signed by Santosh Cardozo MD on 05/20/2018 at 3:29 PMPART A LIVER BIOPSY FOR SUSPECTED MASS:MODERATELY DIFFERENTIATED ADENOCARCINOMA.SEE DIAGNOSTIC COMMENT. Signing Pathologist Direct Phone Line: [phone] signed by Santosh Cardozo MD on 05/01/2018 at 11:26 AMPreliminary result electronically signed by Santosh Cardozo MD on 04/30/2018 at 8:47 AMImmunohistochemical studies performed on block A1 demonstrate the tumor cells to be positive for CK20, CDX2, and CK19. Weak focal staining for TTF-1 is present, however tumor cells are predominantly negative. The tumor cells are negative for CK7, synaptophysin, p40, and PSA. The morphology and immunoprofile are most compatible with an adenocarcinoma of colonic origin, however correlation with clinical findings and imaging studies is required for complete interpretation.23603, 10937, [id number] mass Liver mass biopsy The specimen is received in a formalin-filled container labeled with the patient's information and labeled "liver mass biopsy" and consists of three white core biopsies ranging in length from 0.4 to 1 cm submitted entirely in A1. CG/ew Performed. The interpretation of this case included the use of immunohistochemistry or special stains.BLOCK A1- SYNAPTOPHYSIN, P40, PSA, CDX2, CK19, TTF-1, CK7, GP27Krdztckhtuqkcrdlovjp technical testing was performed at [facility], Pathology Laboratory where it was developed and its performance characteristics were determined. It has not been cleared or approved by the U.S. Food and Drug Administration. The FDA has determined that such clearance or approval is not necessary. The test is used for clinical purposes. It should not be regarded as investigational or for research. This laboratory is certified under the Clinical Laboratory Improvement Amendments of 1988 (CLIA-88) as qualified to perform high complexity clinical laboratory testing. VANCOMYCIN LEVEL, TROUGH 2018-05-16 12:27:00 Test Item Value Reference Range Comments VANCOMYCIN TROUGH (BEAKER) (test orda=284) 16.8 ug/mL 10.0-20.0 Hold further dosing for level > 20, alert and RphPOCT-GLUCOSE [id number] 11:40:00 Test Item Value Reference Range Comments POC-GLUCOSE METER (BEAKER) 284 mg/dL 70-110 TESTED AT [address] (test nzdz=0765) [place] [id number] BLOOD [id number] 11:01:00 Test Item Value Reference Range Comments CULTURE (BEAKER) (test kgvg=2318) No growth in 5 days POCT-GLUCOSE [id number] 08:19:00 Test Item Value Reference Range Comments POC-GLUCOSE METER (BEAKER) 278 mg/dL 70-110 TESTED AT [address] (test vmso=0760) [facility] [address] [id number] 06:56:00 Test Item Value Reference Range Comments PHOSPHORUS (BEAKER) (test qgai=230) 2.3 mg/dL 2.3-4.7 [id number] 06:56:00 Test Item Value Reference Range Comments MAGNESIUM (BEAKER) (test vunj=939) 1.7 mg/dL 1.6-2.6 COMPREHENSIVE METABOLIC [id number] 06:56:00 Test Item Value Reference Range Comments TOTAL PROTEIN (BEAKER) 6.9 gm/dL 6.0-8.3 (test rchc=030) ALBUMIN (BEAKER) (test 2.9 g/dL 3.5-5.0 brqj=1772) ALKALINE PHOSPHATASE 151 U/L 40-150 (BEAKER) (test dsvl=284) BILIRUBIN TOTAL (BEAKER) 2.4 mg/dL 0.2-1.2 (test grij=716) SODIUM (BEAKER) (test 142 meq/L 136-145 ntgs=172) POTASSIUM (BEAKER) (test 4.1 meq/L 3.5-5.1 vnrg=856) CHLORIDE (BEAKER) (test 109 meq/L 98-107 wbck=263) CO2 (BEAKER) (test 23 meq/L 22-29 fbca=186) BLOOD UREA NITROGEN 19 mg/dL 7-21 (BEAKER) (test prmk=026) CREATININE (BEAKER) (test 0.95 mg/dL 0.57-1.25 lewz=840) GLUCOSE RANDOM (BEAKER) 222 mg/dL 70-105 (test whlu=925) CALCIUM (BEAKER) (test 9.1 mg/dL 8.4-10.2 ucpm=367) AST (SGOT) (BEAKER) (test 30 U/L 5-34 ywdq=055) ALT (SGPT) (BEAKER) (test 24 U/L 6-55 qsvi=770) EGFR (BEAKER) (test 79 mL/min/1.73 sq m ESTIMATED GFR IS NOT gswz=6993) ACCURATE CREATININE CLEARANCE IN PREDICTING GLOMERULAR FILTRATION RATE. ESTIMATED GFR IS NOT APPLICABLE FOR DIALYSIS PATIENTS. CBC (HEMOGRAM ONLY)2018-05-16 06:31:00 Test Item Value Reference Range Comments WHITE BLOOD CELL COUNT (BEAKER) (test sgnz=551) 10.0 K/ L 3.5-10.5 RED BLOOD CELL COUNT (BEAKER) (test oyob=573) 3.78 M/ L 4.63-6.08 HEMOGLOBIN (BEAKER) (test uvpr=707) 10.2 GM/DL 13.7-17.5 HEMATOCRIT (BEAKER) (test qqhl=979) 34.8 % 40.1-51.0 MEAN CORPUSCULAR VOLUME (BEAKER) (test ziiu=640) 92.1 fL 79.0-92.2 MEAN CORPUSCULAR HEMOGLOBIN (BEAKER) (test 27.0 pg 25.7-32.2 uyvu=619) MEAN CORPUSCULAR HEMOGLOBIN CONC (BEAKER) (test 29.3 GM/DL 32.3-36.5 efqt=516) RED CELL DISTRIBUTION WIDTH (BEAKER) (test 15.0 % 11.6-14.4 yurp=746) PLATELET COUNT (BEAKER) (test ldxt=581) 257 K/CU MM 150-450 MEAN PLATELET VOLUME (BEAKER) (test wson=102) 9.8 fL 9.4-12.4 NUCLEATED RED BLOOD CELLS (BEAKER) (test 0 /100 WBC 0-0 eftr=495) POCT-GLUCOSE [id number] 21:33:00 Test Item Value Reference Range Comments POC-GLUCOSE METER (BEAKER) 266 mg/dL 70-[address] [facility] [address] [facility] (test yizn=6469) [facility] [address] POCT-GLUCOSE [id number] 16:56:00 Test Item Value Reference Range Comments POC-GLUCOSE METER (BEAKER) 187 mg/dL 70-110 TESTED AT [place] [id number] [facility] (test iiuf=4464) [facility] [address] [place], [place] [id number] 13:00:00Reason for exam:->metastatic colon cancer presenting with nausea, vomitng and poor PO intake. h/oROux en Y. r/o obstruction/stricture Reason for exam:->Please do not do with BARIUM. Thanks Reason for exam:->Please use gastrograffinFINAL REPORT Small bowel follow through: Comparison: CT dated May 12, 2018Clinical History: Metastatic colon cancer, nausea and vomiting [...] time: None Number of images obtained: Eight Impression:No evidence of small bowel obstruction Signed : Rowan Sanches MDReport Verified Date/Time: 05/15/2018 13:00:51 Reading Location: [facility] B1 C013X Ortho Consult Reading Room Electronically signed by: ROWAN SANCHES M.D.on 05/15/2018 01:00 PMPOCT-GLUCOSE [id number] 12:21:00 Test Item Value Reference Range Comments POC-GLUCOSE METER (BEAKER) 269 mg/dL 70-[address] [facility] [address] [facility] (test bjmu=7653) [place] [address] [id number] 12:12:00 Test Item Value Reference Range Comments PHOSPHORUS (BEAKER) (test xtwp=035) 1.6 mg/dL 2.3-4.7 [id number] 12:12:00 Test Item Value Reference Range Comments MAGNESIUM (BEAKER) (test ocsc=384) 1.7 mg/dL 1.6-2.6 COMPREHENSIVE METABOLIC [id number] 12:12:00 Test Item Value Reference Range Comments TOTAL PROTEIN (BEAKER) 7.6 gm/dL 6.0-8.3 (test bfmo=589) ALBUMIN (BEAKER) (test 3.2 g/dL 3.5-5.0 ghzl=3704) ALKALINE PHOSPHATASE 166 U/L 40-150 (BEAKER) (test gdir=078) BILIRUBIN TOTAL (BEAKER) 3.1 mg/dL 0.2-1.2 (test ukyo=500) SODIUM (BEAKER) (test 144 meq/L 136-145 jdiz=203) POTASSIUM (BEAKER) (test 4.1 meq/L 3.5-5.1 uxhl=403) CHLORIDE (BEAKER) (test 109 meq/L 98-107 yyxr=410) CO2 (BEAKER) (test 23 meq/L 22-29 gxxp=442) BLOOD UREA NITROGEN 21 mg/dL 7-21 (BEAKER) (test twmu=234) CREATININE (BEAKER) (test 1.08 mg/dL 0.57-1.25 fhyj=603) GLUCOSE RANDOM (BEAKER) 261 mg/dL 70-105 (test jfir=985) CALCIUM (BEAKER) (test 9.5 mg/dL 8.4-10.2 zpqo=507) AST (SGOT) (BEAKER) (test 33 U/L 5-34 eccb=099) ALT (SGPT) (BEAKER) (test 29 U/L 6-55 hlug=725) EGFR (BEAKER) (test 68 mL/min/1.73 sq m ESTIMATED GFR IS NOT kifp=3282) ACCURATE CREATININE CLEARANCE IN PREDICTING GLOMERULAR FILTRATION RATE. ESTIMATED GFR IS NOT APPLICABLE FOR DIALYSIS PATIENTS. Specimen slightly ictericVANCOMYCIN LEVEL, [id number] 12:12:00 Test Item Value Reference Range Comments VANCOMYCIN RANDOM (BEAKER) (test iclf=887) 22.6 ug/mL Reference Range: No NormalsCBC (HEMOGRAM ONLY)2018-05-15 11:56:00 Test Item Value Reference Range Comments WHITE BLOOD CELL COUNT (BEAKER) (test mibj=585) 10.8 K/ L 3.5-10.5 RED BLOOD CELL COUNT (BEAKER) (test uxxc=891) 4.04 M/ L 4.63-6.08 HEMOGLOBIN (BEAKER) (test afon=351) 11.0 GM/DL 13.7-17.5 HEMATOCRIT (BEAKER) (test daff=456) 36.2 % 40.1-51.0 MEAN CORPUSCULAR VOLUME (BEAKER) (test dvyq=354) 89.6 fL 79.0-92.2 MEAN CORPUSCULAR HEMOGLOBIN (BEAKER) (test 27.2 pg 25.7-32.2 sqhu=427) MEAN CORPUSCULAR HEMOGLOBIN CONC (BEAKER) (test 30.4 GM/DL 32.3-36.5 wdnz=267) RED CELL DISTRIBUTION WIDTH (BEAKER) (test 15.2 % 11.6-14.4 hoae=065) PLATELET COUNT (BEAKER) (test moaj=868) 278 K/CU MM 150-450 MEAN PLATELET VOLUME (BEAKER) (test iout=521) 9.2 fL 9.4-12.4 NUCLEATED RED BLOOD CELLS (BEAKER) (test 0 /100 WBC 0-0 jvmj=076) POCT-GLUCOSE [id number] 07:50:00 Test Item Value Reference Range Comments POC-GLUCOSE METER (BEAKER) 220 mg/dL 70-110 TESTED AT [address] (test wsaf=9075) [facility] [address] VANCOMYCIN LEVEL, [id number] 00:44:00 Test Item Value Reference Range Comments VANCOMYCIN TROUGH (BEAKER) (test fkjf=762) 20.0 ug/mL 10.0-20.0 Hold further doses for level > 20, Alert MD and RphPOCT-GLUCOSE [id number] 21:06:00 Test Item Value Reference Range Comments POC-GLUCOSE METER (BEAKER) 202 mg/dL 70-110 TESTED AT [address] (test lvwq=9003) [facility] [address] POCT-GLUCOSE [id number] 19:04:00 Test Item Value Reference Range Comments POC-GLUCOSE METER (BEAKER) 217 mg/dL 70-110 TESTED AT [address] (test vsnt=3742) [facility] [address] POCT-GLUCOSE [id number] 13:02:00 Test Item Value Reference Range Comments POC-GLUCOSE METER (BEAKER) 245 mg/dL 70-110 TESTED AT [address] (test jtqw=1527) [facility] [address] POCT-GLUCOSE [id number] 09:00:00 Test Item Value Reference Range Comments POC-GLUCOSE METER (BEAKER) 232 mg/dL 70-110 TESTED AT [address] (test gjsq=3606) [facility] [address] [id number] 02:24:00 Test Item Value Reference Range Comments MAGNESIUM (BEAKER) (test 1.9 mg/dL 1.6-2.6 Specimen slightly hemolyzed wtsj=862) [id number] 02:24:00 Test Item Value Reference Range Comments PHOSPHORUS (BEAKER) (test 2.0 mg/dL 2.3-4.7 Specimen slightly hemolyzed skdt=605) COMPREHENSIVE METABOLIC [id number] 02:24:00 Test Item Value Reference Range Comments TOTAL PROTEIN (BEAKER) 6.9 gm/dL 6.0-8.3 Specimen slightly (test ixod=192) hemolyzed ALBUMIN (BEAKER) (test 2.8 g/dL 3.5-5.0 Specimen slightly gijz=3219) hemolyzed ALKALINE PHOSPHATASE 149 U/L 40-150 (BEAKER) (test hjve=904) BILIRUBIN TOTAL (BEAKER) 3.3 mg/dL 0.2-1.2 Specimen slightly (test flqk=442) hemolyzed SODIUM (BEAKER) (test 140 meq/L 136-145 vzsw=830) POTASSIUM (BEAKER) (test 4.2 meq/L 3.5-5.1 Specimen slightly weyg=521) hemolyzed CHLORIDE (BEAKER) (test 109 meq/L 98-107 objv=581) CO2 (BEAKER) (test 21 meq/L 22-29 xjyf=247) BLOOD UREA NITROGEN 29 mg/dL 7-21 (BEAKER) (test yrex=555) CREATININE (BEAKER) (test 1.09 mg/dL 0.57-1.25 Specimen slightly dbiz=275) hemolyzed GLUCOSE RANDOM (BEAKER) 215 mg/dL 70-105 (test gvcn=881) CALCIUM (BEAKER) (test 8.9 mg/dL 8.4-10.2 aqqs=340) AST (SGOT) (BEAKER) (test 30 U/L 5-34 Specimen slightly kekw=569) hemolyzed ALT (SGPT) (BEAKER) (test 30 U/L 6-55 Specimen slightly nquv=554) hemolyzed EGFR (BEAKER) (test 68 mL/min/1.73 sq m ESTIMATED GFR IS NOT wgpu=4536) ACCURATE CREATININE CLEARANCE IN PREDICTING GLOMERULAR FILTRATION RATE. ESTIMATED GFR IS NOT APPLICABLE FOR DIALYSIS PATIENTS. Specimen slightly ictericPROTHROMBIN TIME/[id number] 02:16:00 Test Item Value Reference Range Comments PROTIME (BEAKER) (test opej=629) 19.0 seconds 11.7-14.7 INR (BEAKER) (test xqfu=995) 1.6 <=5.9 RECOMMENDED COUMADIN/WARFARIN INR THERAPY RANGESSTANDARD DOSE: 2.0 - 3.0 Includes: PROPHYLAXIS forvenous thrombosis, systemic embolization; TREATMENT for venous thrombosis and/or pulmonary embolus.HIGH RISK: Target INR is 2.5-3.5 for patients with mechanical heart valves.CBC W/PLT COUNT & AUTO [id number] 02:15:00 Test Item Value Reference Range Comments WHITE BLOOD CELL COUNT (BEAKER) (test djxd=312) 11.2 K/ L 3.5-10.5 RED BLOOD CELL COUNT (BEAKER) (test dahj=418) 3.70 M/ L 4.63-6.08 HEMOGLOBIN (BEAKER) (test veod=740) 10.1 GM/DL 13.7-17.5 HEMATOCRIT (BEAKER) (test iqnf=728) 33.0 % 40.1-51.0 MEAN CORPUSCULAR VOLUME (BEAKER) (test gnwf=352) 89.2 fL 79.0-92.2 MEAN CORPUSCULAR HEMOGLOBIN (BEAKER) (test 27.3 pg 25.7-32.2 rlcf=702) MEAN CORPUSCULAR HEMOGLOBIN CONC (BEAKER) (test 30.6 GM/DL 32.3-36.5 dtpr=170) RED CELL DISTRIBUTION WIDTH (BEAKER) (test 15.2 % 11.6-14.4 hruo=793) PLATELET COUNT (BEAKER) (test ypqj=534) 268 K/CU MM 150-450 MEAN PLATELET VOLUME (BEAKER) (test bzin=333) 9.8 fL 9.4-12.4 NUCLEATED RED BLOOD CELLS (BEAKER) (test 0 /100 WBC 0-0 ewmo=761) NEUTROPHILS RELATIVE PERCENT (BEAKER) (test 75 % wlru=634) LYMPHOCYTES RELATIVE PERCENT (BEAKER) (test 9 % ngiq=660) MONOCYTES RELATIVE PERCENT (BEAKER) (test 11 % njes=518) EOSINOPHILS RELATIVE PERCENT (BEAKER) (test 3 % lrrv=377) BASOPHILS RELATIVE PERCENT (BEAKER) (test 0 % qccw=726) NEUTROPHILS ABSOLUTE COUNT (BEAKER) (test 8.38 K/ L 1.78-5.38 alsd=474) LYMPHOCYTES ABSOLUTE COUNT (BEAKER) (test 1.03 K/ L 1.32-3.57 ixnj=033) MONOCYTES ABSOLUTE COUNT (BEAKER) (test 1.28 K/ L 0.30-0.82 garv=407) EOSINOPHILS ABSOLUTE COUNT (BEAKER) (test 0.37 K/ L 0.04-0.54 axil=050) BASOPHILS ABSOLUTE COUNT (BEAKER) (test 0.05 K/ L 0.01-0.08 honf=133) IMMATURE GRANULOCYTES-RELATIVE PERCENT (BEAKER) 1 % 0-1 (test cfyu=2984) POCT-GLUCOSE [id number] 20:55:00 Test Item Value Reference Range Comments POC-GLUCOSE METER (BEAKER) 231 mg/dL 70-[address] [facility] [address] [facility] (test iniv=5490) [facility] [address] POCT-GLUCOSE [id number] 17:30:00 Test Item Value Reference Range Comments POC-GLUCOSE METER (BEAKER) 241 mg/dL 70-[address] [facility] [address] [facility] (test xeup=8207) [facility] [address] [id number] 13:04:00 Test Item Value Reference Range Comments PHOSPHORUS (BEAKER) (test nmmb=481) 2.4 mg/dL 2.3-4.7 [id number] 13:04:00 Test Item Value Reference Range Comments MAGNESIUM (BEAKER) (test rdkq=467) 1.9 mg/dL 1.6-2.6 COMPREHENSIVE METABOLIC [id number] 13:04:00 Test Item Value Reference Range Comments TOTAL PROTEIN (BEAKER) 7.5 gm/dL 6.0-8.3 (test rrkp=801) ALBUMIN (BEAKER) (test 3.1 g/dL 3.5-5.0 vysi=3078) ALKALINE PHOSPHATASE 176 U/L 40-150 (BEAKER) (test wbmd=271) BILIRUBIN TOTAL (BEAKER) 3.8 mg/dL 0.2-1.2 (test ywka=684) SODIUM (BEAKER) (test 137 meq/L 136-145 pgdl=289) POTASSIUM (BEAKER) (test 4.2 meq/L 3.5-5.1 khax=605) CHLORIDE (BEAKER) (test 106 meq/L 98-107 ilpw=988) CO2 (BEAKER) (test 20 meq/L 22-29 yevm=216) BLOOD UREA NITROGEN 36 mg/dL 7-21 (BEAKER) (test hogw=861) CREATININE (BEAKER) (test 1.40 mg/dL 0.57-1.25 ysmv=585) GLUCOSE RANDOM (BEAKER) 265 mg/dL 70-105 (test ktqo=017) CALCIUM (BEAKER) (test 9.3 mg/dL 8.4-10.2 bbwv=082) AST (SGOT) (BEAKER) (test 36 U/L 5-34 omor=974) ALT (SGPT) (BEAKER) (test 37 U/L 6-55 ktky=046) EGFR (BEAKER) (test 51 mL/min/1.73 sq m ESTIMATED GFR IS NOT ruvf=9649) ACCURATE CREATININE CLEARANCE IN PREDICTING GLOMERULAR FILTRATION RATE. ESTIMATED GFR IS NOT APPLICABLE FOR DIALYSIS PATIENTS. Specimen slightly ictericVANCOMYCIN LEVEL, [id number] 13:03:00 Test Item Value Reference Range Comments VANCOMYCIN TROUGH (BEAKER) (test mzgv=686) 14.2 ug/mL 10.0-20.0 CBC W/PLT COUNT & AUTO [id number] 12:42:00 Test Item Value Reference Range Comments WHITE BLOOD CELL COUNT (BEAKER) (test wxph=554) 12.8 K/ L 3.5-10.5 RED BLOOD CELL COUNT (BEAKER) (test nyxn=515) 4.08 M/ L 4.63-6.08 HEMOGLOBIN (BEAKER) (test dgyl=618) 11.1 GM/DL 13.7-17.5 HEMATOCRIT (BEAKER) (test ekvt=716) 36.2 % 40.1-51.0 MEAN CORPUSCULAR VOLUME (BEAKER) (test exht=122) 88.7 fL 79.0-92.2 MEAN CORPUSCULAR HEMOGLOBIN (BEAKER) (test 27.2 pg 25.7-32.2 mtjh=593) MEAN CORPUSCULAR HEMOGLOBIN CONC (BEAKER) (test 30.7 GM/DL 32.3-36.5 itea=491) RED CELL DISTRIBUTION WIDTH (BEAKER) (test 15.3 % 11.6-14.4 yjiz=094) PLATELET COUNT (BEAKER) (test xmwk=844) 267 K/CU MM 150-450 MEAN PLATELET VOLUME (BEAKER) (test pufv=822) 10.5 fL 9.4-12.4 NUCLEATED RED BLOOD CELLS (BEAKER) (test 0 /100 WBC 0-0 tlgt=492) NEUTROPHILS RELATIVE PERCENT (BEAKER) (test 81 % sqvu=993) LYMPHOCYTES RELATIVE PERCENT (BEAKER) (test 6 % plrt=340) MONOCYTES RELATIVE PERCENT (BEAKER) (test 10 % nvjx=293) EOSINOPHILS RELATIVE PERCENT (BEAKER) (test 1 % hcfh=384) BASOPHILS RELATIVE PERCENT (BEAKER) (test 1 % xjbe=464) NEUTROPHILS ABSOLUTE COUNT (BEAKER) (test 10.34 K/ L 1.78-5.38 hkkp=840) LYMPHOCYTES ABSOLUTE COUNT (BEAKER) (test 0.80 K/ L 1.32-3.57 ttuy=692) MONOCYTES ABSOLUTE COUNT (BEAKER) (test 1.30 K/ L 0.30-0.82 tuhn=451) EOSINOPHILS ABSOLUTE COUNT (BEAKER) (test 0.15 K/ L 0.04-0.54 hjel=110) BASOPHILS ABSOLUTE COUNT (BEAKER) (test 0.06 K/ L 0.01-0.08 swli=912) IMMATURE GRANULOCYTES-RELATIVE PERCENT (BEAKER) 1 % 0-1 (test wbqq=1012) POCT-GLUCOSE [id number] 12:04:00 Test Item Value Reference Range Comments POC-GLUCOSE METER (BEAKER) 286 mg/dL 70-110 TESTED AT [address] (test kovo=7723) [place] [address] POCT-GLUCOSE [id number] 07:42:00 Test Item Value Reference Range Comments POC-GLUCOSE METER (BEAKER) 221 mg/dL 70-110 TESTED AT [address] (test ltmj=9951) [place] [address] POCT-GLUCOSE [id number] 21:19:00 Test Item Value Reference Range Comments POC-GLUCOSE METER (BEAKER) 237 mg/dL 70-110 TESTED AT [address] (test wveo=9093) [place] [id number] POCT-GLUCOSE [id number] 17:27:00 Test Item Value Reference Range Comments POC-GLUCOSE METER (BEAKER) 230 mg/dL 70-110 TESTED AT [address] (test exow=8292) [place] [address] POCT-GLUCOSE [id number] 13:24:00 Test Item Value Reference Range Comments POC-GLUCOSE METER (BEAKER) 206 mg/dL 70-110 TESTED AT [address] (test zvps=9863) [place] [address] CBC W/PLT COUNT & AUTO [id number] 10:55:00 Test Item Value Reference Range Comments WHITE BLOOD CELL COUNT (BEAKER) (test ckcg=148) 15.0 K/ L 3.5-10.5 RED BLOOD CELL COUNT (BEAKER) (test tujt=442) 3.77 M/ L 4.63-6.08 HEMOGLOBIN (BEAKER) (test jmqn=016) 10.2 GM/DL 13.7-17.5 HEMATOCRIT (BEAKER) (test edwp=372) 33.3 % 40.1-51.0 MEAN CORPUSCULAR VOLUME (BEAKER) (test pxjx=998) 88.3 fL 79.0-92.2 MEAN CORPUSCULAR HEMOGLOBIN (BEAKER) (test 27.1 pg 25.7-32.2 xzta=458) MEAN CORPUSCULAR HEMOGLOBIN CONC (BEAKER) (test 30.6 GM/DL 32.3-36.5 rnxc=144) RED CELL DISTRIBUTION WIDTH (BEAKER) (test 15.1 % 11.6-14.4 xepy=721) PLATELET COUNT (BEAKER) (test gnfq=085) 252 K/CU MM 150-450 MEAN PLATELET VOLUME (BEAKER) (test emfg=633) 10.3 fL 9.4-12.4 NUCLEATED RED BLOOD CELLS (BEAKER) (test 0 /100 WBC 0-0 cybc=791) (CELLAVISION MANUAL DIFF)2018-05-12 10:55:00 Test Item Value Reference Range Comments NEUTROPHILS - REL (CELLAVISION)(BEAKER) (test 75 % tbed=2603) LYMPHOCYTES - REL (CELLAVISION)(BEAKER) (test 8 % kybj=4205) MONOCYTES - REL (CELLAVISION)(BEAKER) (test 7 % hodn=1044) EOSINOPHILS - REL (CELLAVISION)(BEAKER) (test 1 % gegc=2543) BASOPHILS - REL (CELLAVISION)(BEAKER) (test 1 % jzco=7752) PROMYELOCYTES - REL (CELLAVSION)(BEAKER) (test 1 % 0-0 xoty=0402) BANDS - REL (CELLAVISION)(BEAKER) (test 6 % 0-10 vnkw=9585) ATYPICAL LYMPHOCYTES - REL (CELLAVISION)(BEAKER) 1 % 0-0 (test znbd=0668) NEUTROPHILS - ABS (CELLAVISION)(BEAKER) (test 11.25 K/ul 1.78-5.38 gxfc=7033) LYMPHOCYTES - ABS (CELLAVISION)(BEAKER) (test 1.20 K/ul 1.32-3.57 nizm=2450) MONOCYTES - ABS (CELLAVISION)(BEAKER) (test 1.05 K/uL 0.30-0.82 pqhc=9870) EOSINOPHILS - ABS (CELLAVISION)(BEAKER) (test 0.15 K/uL 0.04-0.54 wzwu=4884) BASOPHILS - ABS (CELLAVISION)(BEAKER) (test 0.15 K/uL 0.01-0.08 lgip=7418) PROMYELOCYTES - ABS (CELLAVISION)(BEAKER) (test 0.15 K/uL 0.00-0.00 ztqw=9932) BANDS - ABS (CELLAVISION)(BEAKER) (test 0.90 K/uL 0.00-0.80 ddwq=9363) ATYPICAL LYMPHOCYTES - ABS (CELLAVISION)(BEAKER) 0.15 K/uL 0.00-0.00 (test urai=5989) TOTAL COUNTED (BEAKER) (test djmv=8636) 100 PLT MORPHOLOGY (BEAKER) (test efig=938) Normal SMUDGE CELLS (BEAKER) (test kaao=0400) Present ANISOCYTOSIS (BEAKER) (test vziy=603) 1+ few MICROCYTES (BEAKER) (test wkmm=842) 1+ few PLATELET CONCENTRATION (CELLAVISION)(BEAKER) Adequate (test ncft=5921) Received comment: User comments: Slide comments:POCT-GLUCOSE [id number] 07: 40:00 Test Item Value Reference Range Comments POC-GLUCOSE METER (BEAKER) 170 mg/dL 70-110 TESTED AT [address] (test erkw=4790) [facility] [address] [id number] 06:17:00 Test Item Value Reference Range Comments PHOSPHORUS (BEAKER) (test efvb=759) 4.5 mg/dL 2.3-4.7 [id number] 06:17:00 Test Item Value Reference Range Comments MAGNESIUM (BEAKER) (test eryp=885) 1.8 mg/dL 1.6-2.6 COMPREHENSIVE METABOLIC [id number] 06:17:00 Test Item Value Reference Range Comments TOTAL PROTEIN (BEAKER) 6.9 gm/dL 6.0-8.3 (test ridi=763) ALBUMIN (BEAKER) (test 3.0 g/dL 3.5-5.0 dgog=9279) ALKALINE PHOSPHATASE 190 U/L 40-150 (BEAKER) (test cmex=530) BILIRUBIN TOTAL (BEAKER) 3.9 mg/dL 0.2-1.2 (test xhya=918) SODIUM (BEAKER) (test 137 meq/L 136-145 xdzz=108) POTASSIUM (BEAKER) (test 4.4 meq/L 3.5-5.1 hdyc=770) CHLORIDE (BEAKER) (test 107 meq/L 98-107 ccje=972) CO2 (BEAKER) (test 19 meq/L 22-29 adgl=114) BLOOD UREA NITROGEN 43 mg/dL 7-21 (BEAKER) (test mxvx=166) CREATININE (BEAKER) (test 2.16 mg/dL 0.57-1.25 wdws=163) GLUCOSE RANDOM (BEAKER) 153 mg/dL 70-105 (test hiaa=659) CALCIUM (BEAKER) (test 9.1 mg/dL 8.4-10.2 sbkx=205) AST (SGOT) (BEAKER) (test 66 U/L 5-34 zqhz=956) ALT (SGPT) (BEAKER) (test 52 U/L 6-55 xenf=289) EGFR (BEAKER) (test 31 mL/min/1.73 sq m ESTIMATED GFR IS NOT krgh=3207) ACCURATE CREATININE CLEARANCE IN PREDICTING GLOMERULAR FILTRATION RATE. ESTIMATED GFR IS NOT APPLICABLE FOR DIALYSIS PATIENTS. Specimen slightly ictericCT, [id number] 04:26:00FINAL REPORT EXAM: CT of the abdomen and pelvis, without contrast CLINICAL HISTORY: Sepsis; looking for abdominal infection, has an DERIC; colon cancer with liver mets, s/p biliary drain, ? cholangitis, dilated bile ducts, liver abscess TECHNIQUE: CT of the abdomen and pelvis wasperformed without the intravenous administration of contrast. This exam was performed according to our departmental dose optimization program which includes automated exposure control, adjustment of the mA and/or kV according to patient's size and/or use of iterative reconstructive technique. COMPARISON: CT abdomen and pelvis 2018. FINDINGS: Please note study is limited due to lack of intravenous contrast. LOWER CHEST: 2.6 cm right cardiophrenic lymph node, likely metastatic.LIVER: Multiple liver masses again noted. Hepatomegaly. BILE DUCTS: Percutaneous biliary drainage catheter in place. Mild left intrahepatic biliary ductal dilatation.GALL BLADDER:. Status post cholecystectomy.PANCREAS: Within normal limits.SPLEEN: Splenomegaly.ADRENALS: Within normal limits.KIDNEYS/ URETERS: Nonspecificbilateral perinephric stranding. Punctate nonobstructing right renal stone. No hydronephrosis. URINARY BLADDER: Collapsed around a Johnson catheter balloon.REPRODUCTIVE ORGANS: Within normal limits. BOWEL/MESENTERY: Prior sigmoid resection and anastomosis. Small hiatal hernia. No bowel obstruction or abnormal wall thickening. Normal appendix.PERITONEUM/ RETROPERITONEUM: No free air, free fluid or fluid collection. VESSELS: Calcific atherosclerosis. LYMPH NODES: No abdominal or pelvic lymphadenopathy.SOFT TISSUES: Moderate fat-containing left periumbilical hernia. Multiple small midline ventral herniascontaining fat. Small fat-containing bilateral inguinal hernias.BONES: Degenerative changes of the visualized spine. No suspicious osseous lesions IMPRESSION: Limited exam due to lack of intravenous contrast. New percutaneous biliary drainage catheter in place. Otherwise no significant interval change from 05/01/2018. A definite source for sepsis is not elucidated on this noncontrast exam. Signed: Sonu Hyman Verified Date/Time: 04:26:42 Reading Location: [address] Body Reading Room LACTIC ACID, VENOUS, WHOLE [id number] 00:26:00 Test Item Value Reference Range Comments LACTATE BLOOD VENOUS (2) (BEAKER) (test 1.2 mmol/L 0.5-2.2 mkuk=8109) Specimen slightly ictericPOCT-GLUCOSE [id number] 17:25:00 Test Item Value Reference Range Comments POC-GLUCOSE METER (BEAKER) 183 mg/dL 70-110 TESTED AT [address] (test dboz=3471) [facility] [id number] CREATININE, RANDOM [id number] 16:42:00 Test Item Value Reference Range Comments CREATININE URINE (BEAKER) (test uziz=120) 209.0 mg/dL Reference Range: No NormalsPROTEIN, RANDOM [id number] 16:39:00 Test Item Value Reference Range Comments PROTEIN, URINE (BEAKER) (test tdfx=9924) 183 mg/dL 0-14 SODIUM, RANDOM [id number] 16:39:00 Test Item Value Reference Range Comments SODIUM URINE (BEAKER) (test ohhx=163) 37 meq/L Reference Range: No NormalsTROPONIN [id number] 16:37:00 Test Item Value Reference Range Comments TROPONIN I (BEAKER) (test jrmt=839) 0.02 ng/mL 0.00-0.03 Troponin I (TnI) levels must be interpreted in the context of the presenting symptoms and the clinical findings. Elevated TnI levels indicate myocardial damage, but are not specific for ischemic heart disease. Elevated TnI levels are seen in patients with other cardiac conditions (including myocarditis and congestive heart failure), and slight TnI elevations occur in patients with other conditions, including sepsis, renal failure, acidosis, acute neurological disease, and persistent tachyarrhythmia.CBC W/PLT COUNT & AUTO [id number] 13:56:00 Test Item Value Reference Range Comments WHITE BLOOD CELL COUNT (BEAKER) (test wuur=812) 16.1 K/ L 3.5-10.5 RED BLOOD CELL COUNT (BEAKER) (test iwex=163) 3.99 M/ L 4.63-6.08 HEMOGLOBIN (BEAKER) (test svvt=364) 11.2 GM/DL 13.7-17.5 HEMATOCRIT (BEAKER) (test ilpr=337) 35.5 % 40.1-51.0 MEAN CORPUSCULAR VOLUME (BEAKER) (test egkf=709) 89.0 fL 79.0-92.2 MEAN CORPUSCULAR HEMOGLOBIN (BEAKER) (test 28.1 pg 25.7-32.2 qblp=255) MEAN CORPUSCULAR HEMOGLOBIN CONC (BEAKER) (test 31.5 GM/DL 32.3-36.5 pdap=432) RED CELL DISTRIBUTION WIDTH (BEAKER) (test 15.3 % 11.6-14.4 ipvo=404) PLATELET COUNT (BEAKER) (test xwoh=858) 254 K/CU MM 150-450 MEAN PLATELET VOLUME (BEAKER) (test toud=679) 10.8 fL 9.4-12.4 NUCLEATED RED BLOOD CELLS (BEAKER) (test 0 /100 WBC 0-0 ikvs=385) (CELLAVISION MANUAL DIFF)2018-05-11 13:56:00 Test Item Value Reference Range Comments NEUTROPHILS - REL (CELLAVISION)(BEAKER) (test 76 % xgps=9626) LYMPHOCYTES - REL (CELLAVISION)(BEAKER) (test 11 % lspb=5298) MONOCYTES - REL (CELLAVISION)(BEAKER) (test 10 % joop=0763) EOSINOPHILS - REL (CELLAVISION)(BEAKER) (test 1 % tzxj=9429) BANDS - REL (CELLAVISION)(BEAKER) (test 2 % 0-10 rzlp=9763) NEUTROPHILS - ABS (CELLAVISION)(BEAKER) (test 12.24 K/ul 1.78-5.38 rgta=4177) LYMPHOCYTES - ABS (CELLAVISION)(BEAKER) (test 1.77 K/ul 1.32-3.57 tqnk=9092) MONOCYTES - ABS (CELLAVISION)(BEAKER) (test 1.61 K/uL 0.30-0.82 khca=3255) EOSINOPHILS - ABS (CELLAVISION)(BEAKER) (test 0.16 K/uL 0.04-0.54 bbfy=2536) BANDS - ABS (CELLAVISION)(BEAKER) (test 0.32 K/uL 0.00-0.80 wjmu=2594) TOTAL COUNTED (BEAKER) (test yvna=6520) 100 WBC MORPHOLOGY (BEAKER) (test szsf=893) Normal PLT MORPHOLOGY (BEAKER) (test jqqx=848) Normal POLYCHROMATOPHILLIC RBCS(BEAKER) (test ykvp=417) 1+ few HYPOCHROMIA (BEAKER) (test xgba=347) 1+ few ANISOCYTOSIS (BEAKER) (test vtxc=056) 1+ few MACROCYTES (BEAKER) (test oqau=064) 1+ few POIKILOCYTES (BEAKER) (test zgzh=359) 1+ few ACANTHOCYTES (BEAKER) (test qsox=496) 1+ few ARTIFACT (CELLAVISION)(BEAKER) (test ngjn=9945) Present PLATELET CONCENTRATION (CELLAVISION)(BEAKER) Adequate (test jecp=4170) Received comment: User comments: Slide comments:POCT-GLUCOSE [id number] 12: 03:00 Test Item Value Reference Range Comments POC-GLUCOSE METER (BEAKER) 200 mg/dL 70-[address] [facility] [address] [facility] (test gbzf=9032) [facility] [address] BLOOD GAS, [id number] 11:54:00 Test Item Value Reference Range Comments PH ARTERIAL (BEAKER) (test txtx=763) 7.36 7.35-7.45 PCO2 ARTERIAL (BEAKER) (test ydxe=364) 40 mmHg 35-45 PO2 ARTERIAL (BEAKER) (test bsyr=939) 105 mmHg 80-90 O2 SATURATION ARTERIAL (BEAKER) (test pttx=629) 97.6 % 96.0-97.0 HCO3 ARTERIAL (BEAKER) (test nhap=109) 22 mmol/L 21-29 BASE EXCESS ARTERIAL (BEAKER) (test waby=232) -3.4 mmol/L -2.0-3.0 PATIENT TEMPERATURE (BEAKER) (test afdc=6066) 37.0 C FIO2 (BEAKER) (test bohc=4618) 21.0 % [id number] 11:41:00 Test Item Value Reference Range Comments LIPASE (BEAKER) (test vxcc=813) 230 U/L 8-78 Specimen slightly ictericHEPATIC FUNCTION [id number] 11:27:00 Test Item Value Reference Range Comments TOTAL PROTEIN (BEAKER) (test zlzs=666) 7.5 gm/dL 6.0-8.3 ALBUMIN (BEAKER) (test ewmu=9059) 3.4 g/dL 3.5-5.0 BILIRUBIN TOTAL (BEAKER) (test bofy=619) 3.6 mg/dL 0.2-1.2 BILIRUBIN DIRECT (BEAKER) (test uurb=885) 2.9 mg/dL 0.1-0.5 ALKALINE PHOSPHATASE (BEAKER) (test dwgi=614) 227 U/L 40-150 AST (SGOT) (BEAKER) (test jhzz=940) 97 U/L 5-34 ALT (SGPT) (BEAKER) (test qhfr=192) 61 U/L 6-55 Specimen slightly [id number] 10:01:00 Test Item Value Reference Range Comments PROCALCITONIN (BEAKER) (test ctne=5516) 1.65 ng/mL <0.05 SEPSIS RISK (ng/mL)Low: 0.05-0.50Intermediate: 0.51-2.00High: & gt;=2.01LACTIC ACID, VENOUS, WHOLE [id number] 09:18:00 Test Item Value Reference Range Comments LACTATE BLOOD VENOUS (2) (BEAKER) (test 1.2 mmol/L 0.5-2.2 nabu=4984) Specimen slightly ictericURINALYSIS W/ [id number] 09:14:00 Test Item Value Reference Range Comments COLOR (BEAKER) (test fiij=234) Red CLARITY (BEAKER) (test ozff=938) Hazy SPECIFIC GRAVITY UA (BEAKER) (test eivn=827) 1.018 1.001-1.035 PH UA (BEAKER) (test wywa=189) 5.5 5.0-8.0 PROTEIN UA (BEAKER) (test aeuq=472) 50 mg/dL Negative GLUCOSE UA (BEAKER) (test woah=525) Negative Negative KETONES UA (BEAKER) (test eijm=530) Negative Negative BILIRUBIN UA (BEAKER) (test kkth=966) Positive Negative BLOOD UA (BEAKER) (test oljf=492) Negative Negative NITRITE UA (BEAKER) (test ayza=336) Negative Negative LEUKOCYTE ESTERASE UA (BEAKER) (test yhqx=681) Negative Negative UROBILINOGEN UA (BEAKER) (test kegj=943) 0.2 mg/dL 0.2-1.0 RBC UA (BEAKER) (test xjss=653) 1 /HPF WBC UA (BEAKER) (test igrr=703) 3 /HPF BACTERIA (BEAKER) (test wqvu=833) Occasional MUCUS (BEAKER) (test ggfm=5351) Rare SQUAMOUS EPITHELIAL (BEAKER) (test atdg=663) 1 /HPF HYALINE CASTS (BEAKER) (test kvsu=908) 14 /LPF AMORPHOUS CRYSTALS (BEAKER) (test pmbm=8748) Rare YEAST (BEAKER) (test yuiw=0505) Few SOURCE(BEAKER) (test fopg=2575) Urine, Johnson TSH/FREE T4 IF [id number] 09:09:00 Test Item Value Reference Range Comments THYROID STIMULATING HORMONE (BEAKER) (test 1.36 uIU/mL 0.35-4.94 troy=079) TROPONIN [id number] 08:54:00 Test Item Value Reference Range Comments TROPONIN I (BEAKER) (test fdds=221) 0.03 ng/mL 0.00-0.03 Troponin I (TnI) levels must be interpreted in the context of the presenting symptoms and the clinical findings. Elevated TnI levels indicate myocardial damage, but are not specific for ischemic heart disease. Elevated TnI levels are seen in patients with other cardiac conditions (including myocarditis and congestive heart failure), and slight TnI elevations occur in patients with other conditions, including sepsis, renal failure, acidosis, acute neurological disease, and persistent tachyarrhythmia.TROPONIN [id number] 08:54:00 Test Item Value Reference Range Comments TROPONIN I (BEAKER) (test owkf=864) 0.03 ng/mL 0.00-0.03 Troponin I (TnI) levels must be interpreted in the context of the presenting symptoms and the clinical findings. Elevated TnI levels indicate myocardial damage, but are not specific for ischemic heart disease. Elevated TnI levels are seen in patients with other cardiac conditions (including myocarditis and congestive heart failure), and slight TnI elevations occur in patients with other conditions, including sepsis, renal failure, acidosis, acute neurological disease, and persistent tachyarrhythmia.B-TYPE NATRIURETIC FACTOR (BNP) 08:54:00 Test Item Value Reference Range Comments B-TYPE NATRIURETIC PEPTIDE (BEAKER) (test odaf=937) 44 pg/mL 0-100 BASIC METABOLIC [id number] 08:50:00 Test Item Value Reference Range Comments SODIUM (BEAKER) (test 138 meq/L 136-145 lrvw=588) POTASSIUM (BEAKER) (test 4.7 meq/L 3.5-5.1 cpyb=156) CHLORIDE (BEAKER) (test 104 meq/L 98-107 lbah=565) CO2 (BEAKER) (test 23 meq/L 22-29 ntaa=084) BLOOD UREA NITROGEN 41 mg/dL 7-21 (BEAKER) (test ibci=779) CREATININE (BEAKER) (test 2.94 mg/dL 0.57-1.25 svvl=029) GLUCOSE RANDOM (BEAKER) 167 mg/dL 70-105 (test qbei=551) CALCIUM (BEAKER) (test 9.2 mg/dL 8.4-10.2 khww=042) EGFR (BEAKER) (test 22 mL/min/1.73 sq m ESTIMATED GFR IS NOT clht=0427) ACCURATE CREATININE CLEARANCE IN PREDICTING GLOMERULAR FILTRATION RATE. ESTIMATED GFR IS NOT APPLICABLE FOR DIALYSIS PATIENTS. Specimen slightly [id number] 08:47:00 Test Item Value Reference Range Comments PHOSPHORUS (BEAKER) (test tald=252) 4.9 mg/dL 2.3-4.7 [id number] 08:47:00 Test Item Value Reference Range Comments MAGNESIUM (BEAKER) (test hrlh=837) 2.1 mg/dL 1.6-2.6 [id number] 08:41:00 Test Item Value Reference Range Comments D-DIMER QUANTITATIVE (BEAKER) (test hiev=164) 2.23 MG/L FEU <0.50 Intended Use: The D-Dimer Assay can be used to aid in the diagnosis of Deep Vein Thrombosis (DVT) and Pulmonary Embolism Disease (PED).In patients with low pre-test probability, various studies concerning STA Liatest D-dimer test have reported that with a cutoff value of 0.50 MG/L FEU, the Negative Predictive Value (NPV) regarding the exclusion of thrombosis is within 95-100% range.[id number] 08:39:00 Test Item Value Reference Range Comments PARTIAL THROMBOPLASTIN TIME (BEAKER) (test 50.9 seconds 22.5-36.0 lmex=845) PROTHROMBIN TIME/[id number] 08:38:00 Test Item Value Reference Range Comments PROTIME (BEAKER) (test klia=228) 17.9 seconds 11.7-14.7 INR (BEAKER) (test qweq=790) 1.5 <=5.9 RECOMMENDED COUMADIN/WARFARIN INR THERAPY RANGESSTANDARD DOSE: 2.0 - 3.0 Includes: PROPHYLAXIS forvenous thrombosis, systemic embolization; TREATMENT for venous thrombosis and/or pulmonary embolus.HIGH RISK: Target INR is 2.5-3.5 for patients with mechanical heart valves.[id number] 08:38:00 Test Item Value Reference Range Comments FIBRINOGEN LEVEL (BEAKER) (test rixo=801) 629 mg/dl 225-434 POCT-GLUCOSE [id number] 08:19:00 Test Item Value Reference Range Comments POC-GLUCOSE METER (BEAKER) 228 mg/dL 70-110 TESTED AT [address] (test fatr=0513) [place] [address] RAD, CHEST, 1 VIEW, NON [id number] 07:20:00Post-intubationReason for exam:-& gt;dyspneaShould this be performed at the bedside?->YesFINAL REPORT Clinical History: Dyspnea Comparison Study: April 28, 2018 Findings: The cardiac silhouette is enlarged. A pacer device is seen. The lungs are within normal limits. The pleural spaces are clear. No significant bony or soft tissue abnormalities are seen. There are postsurgical changes in the cervical spine, partially visualized. Impression: Cardiomegaly. No change from previous. Signed: Christian Vela MDReport Verified Date/Time: 05/11/2018 07:20:22 Reading Location: [place] [id number] Ortho Consult Reading Room Electronically signed by: CHRISTIAN VELA M.D.on 05/11/2018 07:20 AMPOCT- GLUCOSE [id number] 13:40:00 Test Item Value Reference Range Comments POC-GLUCOSE METER (BEAKER) 80 mg/dL 70-110 TESTED AT [address] (test xiij=1169) [place] [id number] POCT-GLUCOSE [id number] 09:17:00 Test Item Value Reference Range Comments POC-GLUCOSE METER (BEAKER) 85 mg/dL 70-110 TESTED AT [address] (test riqy=5321) [place] [id number] POCT-GLUCOSE [id number] 18:47:00 Test Item Value Reference Range Comments POC-GLUCOSE METER (BEAKER) 89 mg/dL 70-110 TESTED AT [address] (test dgel=5154) [place] [id number] POCT-GLUCOSE [id number] 09:19:00 Test Item Value Reference Range Comments POC-GLUCOSE METER (BEAKER) 102 mg/dL 70-110 TESTED AT [address] (test ytgc=7050) [place] [id number] COMPREHENSIVE METABOLIC [id number] 09:04:00 Test Item Value Reference Range Comments TOTAL PROTEIN (BEAKER) 7.5 gm/dL 6.0-8.3 (test cfad=287) ALBUMIN (BEAKER) (test 3.5 g/dL 3.5-5.0 loyv=9400) ALKALINE PHOSPHATASE 246 U/L 40-150 (BEAKER) (test fvoy=173) BILIRUBIN TOTAL (BEAKER) 4.1 mg/dL 0.2-1.2 (test jcrz=912) SODIUM (BEAKER) (test 138 meq/L 136-145 ythx=185) POTASSIUM (BEAKER) (test 4.2 meq/L 3.5-5.1 yfqu=009) CHLORIDE (BEAKER) (test 104 meq/L 98-107 zjjz=723) CO2 (BEAKER) (test 25 meq/L 22-29 npgm=221) BLOOD UREA NITROGEN 16 mg/dL 7-21 (BEAKER) (test plth=999) CREATININE (BEAKER) (test 0.82 mg/dL 0.57-1.25 pilj=652) GLUCOSE RANDOM (BEAKER) 60 mg/dL 70-105 (test imnz=658) CALCIUM (BEAKER) (test 9.6 mg/dL 8.4-10.2 dfuw=211) AST (SGOT) (BEAKER) (test 75 U/L 5-34 nlbc=786) ALT (SGPT) (BEAKER) (test 62 U/L 6-55 tpke=794) EGFR (BEAKER) (test 94 mL/min/1.73 sq m ESTIMATED GFR IS NOT mast=7635) ACCURATE CREATININE CLEARANCE IN PREDICTING GLOMERULAR FILTRATION RATE. ESTIMATED GFR IS NOT APPLICABLE FOR DIALYSIS PATIENTS. Specimen slightly ictericCBC (HEMOGRAM ONLY)2018-05-06 08:40:00 Test Item Value Reference Range Comments WHITE BLOOD CELL COUNT (BEAKER) (test jesf=576) 11.9 K/ L 3.5-10.5 RED BLOOD CELL COUNT (BEAKER) (test idzi=519) 4.46 M/ L 4.63-6.08 HEMOGLOBIN (BEAKER) (test hnww=475) 12.2 GM/DL 13.7-17.5 HEMATOCRIT (BEAKER) (test onoe=708) 40.9 % 40.1-51.0 MEAN CORPUSCULAR VOLUME (BEAKER) (test idqn=227) 91.7 fL 79.0-92.2 MEAN CORPUSCULAR HEMOGLOBIN (BEAKER) (test 27.4 pg 25.7-32.2 odyj=795) MEAN CORPUSCULAR HEMOGLOBIN CONC (BEAKER) (test 29.8 GM/DL 32.3-36.5 vplv=724) RED CELL DISTRIBUTION WIDTH (BEAKER) (test 16.2 % 11.6-14.4 bglq=262) PLATELET COUNT (BEAKER) (test bdez=429) 306 K/CU MM 150-450 MEAN PLATELET VOLUME (BEAKER) (test iwiv=107) 10.0 fL 9.4-12.4 NUCLEATED RED BLOOD CELLS (BEAKER) (test 0 /100 WBC 0-0 iqlo=820) POCT-GLUCOSE [id number] 22:51:00 Test Item Value Reference Range Comments POC-GLUCOSE METER (BEAKER) 86 mg/dL 70-110 TESTED AT [address] (test azvn=5476) [place] [id number] POCT-GLUCOSE [id number] 17:43:00 Test Item Value Reference Range Comments POC-GLUCOSE METER (BEAKER) 96 mg/dL 70-110 TESTED AT [address] (test kqmz=2556) [place] [id number] POCT-GLUCOSE [id number] 09:29:00 Test Item Value Reference Range Comments POC-GLUCOSE METER (BEAKER) 94 mg/dL 70-110 TESTED AT [address] (test bsyl=3612) [facility] [address] COMPREHENSIVE METABOLIC [id number] 07:59:00 Test Item Value Reference Range Comments TOTAL PROTEIN (BEAKER) 7.2 gm/dL 6.0-8.3 (test xyce=528) ALBUMIN (BEAKER) (test 3.3 g/dL 3.5-5.0 lgiy=3548) ALKALINE PHOSPHATASE 267 U/L 40-150 (BEAKER) (test pmjo=176) BILIRUBIN TOTAL (BEAKER) 4.3 mg/dL 0.2-1.2 (test vptg=300) SODIUM (BEAKER) (test 137 meq/L 136-145 abfb=466) POTASSIUM (BEAKER) (test 3.9 meq/L 3.5-5.1 jymr=356) CHLORIDE (BEAKER) (test 104 meq/L 98-107 dwti=557) CO2 (BEAKER) (test 26 meq/L 22-29 iwrl=342) BLOOD UREA NITROGEN 16 mg/dL 7-21 (BEAKER) (test gffn=237) CREATININE (BEAKER) (test 0.82 mg/dL 0.57-1.25 jrzt=590) GLUCOSE RANDOM (BEAKER) 79 mg/dL 70-105 (test dmur=642) CALCIUM (BEAKER) (test 9.4 mg/dL 8.4-10.2 knkg=040) AST (SGOT) (BEAKER) (test 63 U/L 5-34 pdbt=032) ALT (SGPT) (BEAKER) (test 59 U/L 6-55 pfti=902) EGFR (BEAKER) (test 94 mL/min/1.73 sq m ESTIMATED GFR IS NOT gjvw=2680) ACCURATE CREATININE CLEARANCE IN PREDICTING GLOMERULAR FILTRATION RATE. ESTIMATED GFR IS NOT APPLICABLE FOR DIALYSIS PATIENTS. Specimen slightly ictericCBC (HEMOGRAM ONLY)2018-05-05 06:57:00 Test Item Value Reference Range Comments WHITE BLOOD CELL COUNT (BEAKER) (test xlvg=301) 11.0 K/ L 3.5-10.5 RED BLOOD CELL COUNT (BEAKER) (test birl=731) 4.03 M/ L 4.63-6.08 HEMOGLOBIN (BEAKER) (test iuas=909) 11.1 GM/DL 13.7-17.5 HEMATOCRIT (BEAKER) (test hmif=041) 36.6 % 40.1-51.0 MEAN CORPUSCULAR VOLUME (BEAKER) (test tplj=153) 90.8 fL 79.0-92.2 MEAN CORPUSCULAR HEMOGLOBIN (BEAKER) (test 27.5 pg 25.7-32.2 zulh=253) MEAN CORPUSCULAR HEMOGLOBIN CONC (BEAKER) (test 30.3 GM/DL 32.3-36.5 dcdz=320) RED CELL DISTRIBUTION WIDTH (BEAKER) (test 16.4 % 11.6-14.4 tlxb=333) PLATELET COUNT (BEAKER) (test iwtv=454) 253 K/CU MM 150-450 MEAN PLATELET VOLUME (BEAKER) (test oydd=810) 9.1 fL 9.4-12.4 NUCLEATED RED BLOOD CELLS (BEAKER) (test 0 /100 WBC 0-0 oaea=001) POCT-GLUCOSE [id number] 20:56:00 Test Item Value Reference Range Comments POC-GLUCOSE METER (BEAKER) 126 mg/dL 70-110 TESTED AT [address] (test khhm=1502) [facility] [address] POCT-GLUCOSE [id number] 18:00:00 Test Item Value Reference Range Comments POC-GLUCOSE METER (BEAKER) 137 mg/dL 70-110 TESTED AT [address] (test nsev=3353) [facility] [address] POCT-GLUCOSE [id number] 12:45:00 Test Item Value Reference Range Comments POC-GLUCOSE METER (BEAKER) 101 mg/dL 70-110 TESTED AT [address] (test sudq=6815) [place] [id number] POCT-GLUCOSE [id number] 11:47:00 Test Item Value Reference Range Comments POC-GLUCOSE METER (BEAKER) 111 mg/dL 70-110 TESTED AT [address] (test emdy=1303) [facility] [address] POCT-GLUCOSE [id number] 07:44:00 Test Item Value Reference Range Comments POC-GLUCOSE METER (BEAKER) 86 mg/dL 70-110 TESTED AT [address] (test crqz=1994) [facility] [address] COMPREHENSIVE METABOLIC [id number] 07:44:00 Test Item Value Reference Range Comments TOTAL PROTEIN (BEAKER) 7.3 gm/dL 6.0-8.3 (test kjmy=264) ALBUMIN (BEAKER) (test 3.4 g/dL 3.5-5.0 tism=5996) ALKALINE PHOSPHATASE 314 U/L 40-150 (BEAKER) (test cxxx=430) BILIRUBIN TOTAL (BEAKER) 4.9 mg/dL 0.2-1.2 (test ciox=216) SODIUM (BEAKER) (test 138 meq/L 136-145 haxq=958) POTASSIUM (BEAKER) (test 4.1 meq/L 3.5-5.1 rixd=221) CHLORIDE (BEAKER) (test 103 meq/L 98-107 vbec=370) CO2 (BEAKER) (test 26 meq/L 22-29 pwwe=246) BLOOD UREA NITROGEN 16 mg/dL 7-21 (BEAKER) (test nwrq=343) CREATININE (BEAKER) (test 0.83 mg/dL 0.57-1.25 iikv=686) GLUCOSE RANDOM (BEAKER) 88 mg/dL 70-105 (test casn=193) CALCIUM (BEAKER) (test 9.4 mg/dL 8.4-10.2 qixr=587) AST (SGOT) (BEAKER) (test 60 U/L 5-34 tjqj=522) ALT (SGPT) (BEAKER) (test 68 U/L 6-55 yppx=507) EGFR (BEAKER) (test 93 mL/min/1.73 sq m ESTIMATED GFR IS NOT iavn=3345) ACCURATE CREATININE CLEARANCE IN PREDICTING GLOMERULAR FILTRATION RATE. ESTIMATED GFR IS NOT APPLICABLE FOR DIALYSIS PATIENTS. Specimen moderately ictericCBC (HEMOGRAM ONLY)2018-05-04 07:01:00 Test Item Value Reference Range Comments WHITE BLOOD CELL COUNT (BEAKER) (test ppdg=789) 11.9 K/ L 3.5-10.5 RED BLOOD CELL COUNT (BEAKER) (test dczp=064) 4.11 M/ L 4.63-6.08 HEMOGLOBIN (BEAKER) (test bomd=555) 11.3 GM/DL 13.7-17.5 HEMATOCRIT (BEAKER) (test lkyb=673) 37.5 % 40.1-51.0 MEAN CORPUSCULAR VOLUME (BEAKER) (test hkvu=396) 91.2 fL 79.0-92.2 MEAN CORPUSCULAR HEMOGLOBIN (BEAKER) (test 27.5 pg 25.7-32.2 xejv=255) MEAN CORPUSCULAR HEMOGLOBIN CONC (BEAKER) (test 30.1 GM/DL 32.3-36.5 yozi=810) RED CELL DISTRIBUTION WIDTH (BEAKER) (test 17.0 % 11.6-14.4 lpdh=672) PLATELET COUNT (BEAKER) (test qtwg=090) 296 K/CU MM 150-450 MEAN PLATELET VOLUME (BEAKER) (test kxyx=568) 10.0 fL 9.4-12.4 NUCLEATED RED BLOOD CELLS (BEAKER) (test 0 /100 WBC 0-0 doxl=968) POCT-GLUCOSE [id number] 21:19:00 Test Item Value Reference Range Comments POC-GLUCOSE METER (BEAKER) 95 mg/dL 70-110 TESTED AT [address] (test omax=6863) [facility] [id number] POCT-GLUCOSE [id number] 18:32:00 Test Item Value Reference Range Comments POC-GLUCOSE METER (BEAKER) 110 mg/dL 70-110 TESTED AT [address] (test plux=7275) [facility] [id number] POCT-GLUCOSE [id number] 12:12:00 Test Item Value Reference Range Comments POC-GLUCOSE METER (BEAKER) 126 mg/dL 70-110 TESTED AT [address] (test lvlv=0140) [facility] [id number] ANG, CHOLANGIOGRAM, [id number] 11:42:00FINAL REPORT Fluoroscopic and ultrasound guided right internal/external biliary drain placement, 05/02/2018. Clinical History: Liver masses, obstructive jaundice. Modality: Sonography and fluoroscopy Gusset Ripper: Paxton More MD , [employer] Sales Representative: MD Hemal. Conscious sedation: General anesthesia was utilized for the procedure. The patient's vital signs were continuously monitored by anesthesia and remained stable throughout. Estimated Blood Loss: Less than 5 cc. Specimen: None. Fluoroscopy Time: 16.4 min.Reference Air Kerma (Ka, r): 901 mGy. Technique: Informed written consent was obtained. Discussion of risks, benefits, and alternatives were made with the patient. The patient expressed understanding and agreed to proceed. All elements maximal sterile barrier technique was utilized for this procedure, including utilization of sterile scrub solution forskin prep, a large sterile sheet to cover [...] sheath was advanced over the wire. A 0.035inch Glidewire in combination with a 4 [place] Berenstein catheter were then advanced past a hilar stenosis and into the small bowel. This was exchanged for an Amplatz superstiff wire. After a small skin incision was made, the soft tissue tract was dilated with eight [place] dilators. A 8.5 [place] internal/external biliary drainage catheter was placed with the distal pigtail in the second portion of the duodenum. The wire was then removed, and the pigtail of the catheter was locked. The catheter was then secured onto the skin with 2-0 silk. The patient tolerated the procedure well, without immediatecomplications. The patient's vital signs remained stable throughout the procedure. Impression:Successful and uncomplicated ultrasound and fluoroscopic guided percutaneous transhepatic cholangiogram andright internal/external biliary drainage catheter placement. Signed: Paxton More MDReport Verified Date/Time: 05/03/2018 11:42:37 Reading Location: [address] Body Reading Room POCT-GLUCOSE [id number] 11: 18:00 Test Item Value Reference Range Comments POC-GLUCOSE METER (BEAKER) 148 mg/dL 70-110 TESTED AT [address] (test lgip=4343) [facility] [address] COMPREHENSIVE METABOLIC [id number] 07:34:00 Test Item Value Reference Range Comments TOTAL PROTEIN (BEAKER) 7.4 gm/dL 6.0-8.3 Specimen slightly (test ztjh=960) hemolyzed ALBUMIN (BEAKER) (test 3.4 g/dL 3.5-5.0 Specimen slightly gidc=3489) hemolyzed ALKALINE PHOSPHATASE 355 U/L 40-150 (BEAKER) (test zkjd=214) BILIRUBIN TOTAL (BEAKER) 6.2 mg/dL 0.2-1.2 Specimen slightly (test twkj=453) hemolyzed SODIUM (BEAKER) (test 136 meq/L 136-145 bmcl=608) POTASSIUM (BEAKER) (test 4.4 meq/L 3.5-5.1 Specimen slightly qoes=267) hemolyzed CHLORIDE (BEAKER) (test 102 meq/L 98-107 jgsu=699) CO2 (BEAKER) (test 25 meq/L 22-29 ooan=600) BLOOD UREA NITROGEN 14 mg/dL 7-21 (BEAKER) (test neyg=703) CREATININE (BEAKER) (test 0.80 mg/dL 0.57-1.25 Specimen slightly uuih=533) hemolyzed GLUCOSE RANDOM (BEAKER) 135 mg/dL 70-105 (test uczc=391) CALCIUM (BEAKER) (test 9.4 mg/dL 8.4-10.2 atwf=167) AST (SGOT) (BEAKER) (test 87 U/L 5-34 Specimen slightly lisa=657) hemolyzed ALT (SGPT) (BEAKER) (test 84 U/L 6-55 Specimen slightly gvkx=208) hemolyzed EGFR (BEAKER) (test 97 mL/min/1.73 sq m ESTIMATED GFR IS NOT tiwp=2909) ACCURATE CREATININE CLEARANCE IN PREDICTING GLOMERULAR FILTRATION RATE. ESTIMATED GFR IS NOT APPLICABLE FOR DIALYSIS PATIENTS. Specimen moderately ictericCBC (HEMOGRAM ONLY)2018-05-03 06:58:00 Test Item Value Reference Range Comments WHITE BLOOD CELL COUNT (BEAKER) (test avbz=117) 13.2 K/ L 3.5-10.5 RED BLOOD CELL COUNT (BEAKER) (test vlwt=497) 4.61 M/ L 4.63-6.08 HEMOGLOBIN (BEAKER) (test vjbv=891) 12.2 GM/DL 13.7-17.5 HEMATOCRIT (BEAKER) (test xsgg=487) 41.6 % 40.1-51.0 MEAN CORPUSCULAR VOLUME (BEAKER) (test npzz=658) 90.2 fL 79.0-92.2 MEAN CORPUSCULAR HEMOGLOBIN (BEAKER) (test 26.5 pg 25.7-32.2 voxl=147) MEAN CORPUSCULAR HEMOGLOBIN CONC (BEAKER) (test 29.3 GM/DL 32.3-36.5 gvjf=783) RED CELL DISTRIBUTION WIDTH (BEAKER) (test 17.2 % 11.6-14.4 ocft=386) PLATELET COUNT (BEAKER) (test xifr=771) 320 K/CU MM 150-450 MEAN PLATELET VOLUME (BEAKER) (test fndv=765) 9.7 fL 9.4-12.4 NUCLEATED RED BLOOD CELLS (BEAKER) (test 0 /100 WBC 0-0 kucf=392) POCT-GLUCOSE [id number] 21:37:00 Test Item Value Reference Range Comments POC-GLUCOSE METER (BEAKER) 170 mg/dL 70-110 TESTED AT [address] (test lhjm=5818) [facility] [address] POCT-GLUCOSE [id number] 17:37:00 Test Item Value Reference Range Comments POC-GLUCOSE METER (BEAKER) 196 mg/dL 70-110 TESTED AT [address] (test kzmk=1366) [facility] [address] POCT-GLUCOSE [id number] 12:02:00 Test Item Value Reference Range Comments POC-GLUCOSE METER (BEAKER) 87 mg/dL 70-110 TESTED AT [address] (test lozm=7533) [facility] [address] POCT-GLUCOSE [id number] 07:42:00 Test Item Value Reference Range Comments POC-GLUCOSE METER (BEAKER) 118 mg/dL 70-110 TESTED AT [address] (test uvzx=0392) [facility] [address] COMPREHENSIVE METABOLIC [id number] 05:42:00 Test Item Value Reference Range Comments TOTAL PROTEIN (BEAKER) 7.2 gm/dL 6.0-8.3 (test msqx=782) ALBUMIN (BEAKER) (test 3.4 g/dL 3.5-5.0 ubgf=3874) ALKALINE PHOSPHATASE 370 U/L 40-150 (BEAKER) (test rslf=790) BILIRUBIN TOTAL (BEAKER) 9.8 mg/dL 0.2-1.2 (test urgi=268) SODIUM (BEAKER) (test 139 meq/L 136-145 oaom=303) POTASSIUM (BEAKER) (test 3.8 meq/L 3.5-5.1 xkbx=052) CHLORIDE (BEAKER) (test 103 meq/L 98-107 uuez=779) CO2 (BEAKER) (test 26 meq/L 22-29 vims=902) BLOOD UREA NITROGEN 11 mg/dL 7-21 (BEAKER) (test bdsf=947) CREATININE (BEAKER) (test 0.81 mg/dL 0.57-1.25 ezin=734) GLUCOSE RANDOM (BEAKER) 103 mg/dL 70-105 (test havs=612) CALCIUM (BEAKER) (test 9.5 mg/dL 8.4-10.2 lntv=343) AST (SGOT) (BEAKER) (test 103 U/L 5-34 nuzr=331) ALT (SGPT) (BEAKER) (test 88 U/L 6-55 uwcj=749) EGFR (BEAKER) (test 95 mL/min/1.73 sq m ESTIMATED GFR IS NOT jzmf=5441) ACCURATE CREATININE CLEARANCE IN PREDICTING GLOMERULAR FILTRATION RATE. ESTIMATED GFR IS NOT APPLICABLE FOR DIALYSIS PATIENTS. Per radiology.Specimen moderately ictericPT/[id number] 05:32:00 Test Item Value Reference Range Comments PROTIME (BEAKER) (test dgdv=682) 14.0 seconds 11.7-14.7 INR (BEAKER) (test rnum=945) 1.1 <=5.9 PARTIAL THROMBOPLASTIN TIME (BEAKER) (test 37.7 seconds 22.5-36.0 kbtn=420) RECOMMENDED COUMADIN/WARFARIN INR THERAPY RANGESSTANDARD DOSE: 2.0 - 3.0 Includes: PROPHYLAXIS forvenous thrombosis, systemic embolization; TREATMENT for venous thrombosis and/or pulmonary embolus.HIGH RISK: Target INR is 2.5-3.5 for patients with mechanical heart valves.Per radiology.Per radiology.CBC W/PLT COUNT & AUTO [id number] 05:21:00 Test Item Value Reference Range Comments WHITE BLOOD CELL COUNT (BEAKER) (test bmxo=884) 9.8 K/ L 3.5-10.5 RED BLOOD CELL COUNT (BEAKER) (test rqas=427) 4.18 M/ L 4.63-6.08 HEMOGLOBIN (BEAKER) (test cpzz=963) 11.3 GM/DL 13.7-17.5 HEMATOCRIT (BEAKER) (test riti=654) 36.9 % 40.1-51.0 MEAN CORPUSCULAR VOLUME (BEAKER) (test enik=155) 88.3 fL 79.0-92.2 MEAN CORPUSCULAR HEMOGLOBIN (BEAKER) (test 27.0 pg 25.7-32.2 ndfp=259) MEAN CORPUSCULAR HEMOGLOBIN CONC (BEAKER) (test 30.6 GM/DL 32.3-36.5 xdog=321) RED CELL DISTRIBUTION WIDTH (BEAKER) (test 16.9 % 11.6-14.4 hhxa=720) PLATELET COUNT (BEAKER) (test aigb=318) 275 K/CU MM 150-450 MEAN PLATELET VOLUME (BEAKER) (test dvzg=138) 9.9 fL 9.4-12.4 NUCLEATED RED BLOOD CELLS (BEAKER) (test 0 /100 WBC 0-0 iaaq=440) NEUTROPHILS RELATIVE PERCENT (BEAKER) (test 72 % qrsy=666) LYMPHOCYTES RELATIVE PERCENT (BEAKER) (test 14 % azks=812) MONOCYTES RELATIVE PERCENT (BEAKER) (test 10 % aulh=331) EOSINOPHILS RELATIVE PERCENT (BEAKER) (test 3 % ibnt=813) BASOPHILS RELATIVE PERCENT (BEAKER) (test 1 % kmnk=437) NEUTROPHILS ABSOLUTE COUNT (BEAKER) (test 7.01 K/ L 1.78-5.38 rwfs=403) LYMPHOCYTES ABSOLUTE COUNT (BEAKER) (test 1.37 K/ L 1.32-3.57 bqgz=532) MONOCYTES ABSOLUTE COUNT (BEAKER) (test 0.96 K/ L 0.30-0.82 rudo=474) EOSINOPHILS ABSOLUTE COUNT (BEAKER) (test 0.30 K/ L 0.04-0.54 myls=587) BASOPHILS ABSOLUTE COUNT (BEAKER) (test 0.06 K/ L 0.01-0.08 gkcb=130) IMMATURE GRANULOCYTES-RELATIVE PERCENT (BEAKER) 1 % 0-1 (test gmmz=5632) POCT-GLUCOSE [id number] 21:16:00 Test Item Value Reference Range Comments POC-GLUCOSE METER (BEAKER) 169 mg/dL 70-110 TESTED AT [address] (test sgwe=4810) [place] [address] POCT-GLUCOSE [id number] 17:50:00 Test Item Value Reference Range Comments POC-GLUCOSE METER (BEAKER) 118 mg/dL 70-110 TESTED AT [address] (test ywtt=6656) [place] [address] POCT-GLUCOSE [id number] 12:58:00 Test Item Value Reference Range Comments POC-GLUCOSE METER (BEAKER) 163 mg/dL 70-110 TESTED AT [address] (test dxog=6326) [place] [address] HEPATIC FUNCTION [id number] 12:24:00 Test Item Value Reference Range Comments TOTAL PROTEIN (BEAKER) (test ihza=483) 7.1 gm/dL 6.0-8.3 ALBUMIN (BEAKER) (test vxjf=1292) 3.4 g/dL 3.5-5.0 BILIRUBIN TOTAL (BEAKER) (test maot=511) 9.2 mg/dL 0.2-1.2 BILIRUBIN DIRECT (BEAKER) (test czjy=116) 7.0 mg/dL 0.1-0.5 ALKALINE PHOSPHATASE (BEAKER) (test fhhg=978) 349 U/L 40-150 AST (SGOT) (BEAKER) (test yvrq=819) 103 U/L 5-34 ALT (SGPT) (BEAKER) (test vrpo=613) 89 U/L 6-55 Specimen moderately ictericCT, CHEST, WITH [id number] 08:50:00FINAL REPORT TECHNIQUE: CT of the chest, abdomen, and pelvis WITH intravenouscontrast and WITHOUT oral contrast. Dose modulation, iterative reconstruction, and/or weight-based adjustment of the mA/kV was utilized to reduce the radiation dose to as low as reasonably achievable. INDICATION: Neoplasm: chest, metastatic, staging. COMPARISON: Outside facility CT from 2018. MRCP from 04/30/2018.. FINDINGS: LINES/TUBES: Left chest pacer with leads in the right atrium and ventricle. LUNGS AND AIRWAYS: A nodule in the right upper lobe measures 0.8 cm on axial image 18. A right lower lobe pulmonary nodule measures 1.5 cm on axial image 44. Branching nodular opacities in the leftupper lobe measure up to 1.7 cm in conglomerate on axial image 21. PLEURA: The pleural spaces are clear.HEART AND MEDIASTINUM: The thyroid is enlarged and diffusely heterogeneous with nodules which measure up to 2.6 cm. Given the extensive masses in the liver, no further imaging is necessary. Enlargedsubmental lymph nodes measure up to 1.1 cm [...] axial image 16. HEPATOBILIARY: The liver is enlarged.The hepatic masses were better seen on the [...] II, and III were better seen on theprior MRCP. SPLEEN: 17.4 cm splenomegaly.PANCREAS: No focal masses or ductal dilatation. ADRENALS: No adrenal nodules.KIDNEYS/URETERS: No hydronephrosis or masses. A right lower pole nonobstructing stone measures 3 mm.PELVIC ORGANS/ BLADDER: Unremarkable. PERITONEUM/RETROPERITONEUM: No free air or fluid. Several ventral hernias containing omental fat. The largest is in the periumbilical region and hasa peritoneal opening of 5.4 cm. LYMPH NODES: Periportal lymph node measures up to 1.9 cm in short axis dimension.VESSELS: Unremarkable. GI TRACT: Prior sigmoidectomy. Prior gastric [...] given the prior sigmoidectomy, if the patient hashad prior colon cancer, these could be metastases as well. 2.The precardiac lymph node is consistentwith metastatic disease, and the other prominent lymph nodes are concerning for metastatic disease. The prominent periportal lymph node measures up to 1.9 cm in short axis dimension and is indeterminate. 3.The three bilateral lung nodules which measure up to 1.7 cm are indeterminate but concerning formetastases. However, the morphology is slightly atypical for metastasis. 4.A right lower pole 3 mm stone is nonobstructing. Signed: Theron Goetz MDReport Verified Date/Time: 05/01/2018 08:50:31 Reading Location: [facility] Diagnostic Imaging Reading Room - [place] [address] CT, [id number] 08:50:00FINAL REPORT TECHNIQUE: CT of the chest, abdomen, and pelvis WITH intravenouscontrast and WITHOUT oral contrast. Dose modulation, iterative reconstruction, and/or weight-based adjustment of the mA/kV was utilized to reduce the radiation dose to as low as reasonably achievable. INDICATION: Neoplasm: chest, metastatic, staging. COMPARISON: Outside facility CT from 2018. MRCP from 04/30/2018.. FINDINGS: LINES/TUBES: Left chest pacer with leads in the right atrium and ventricle. LUNGS AND AIRWAYS: A nodule in the right upper lobe measures 0.8 cm on axial image 18. A right lower lobe pulmonary nodule measures 1.5 cm on axial image 44. Branching nodular opacities in the leftupper lobe measure up to 1.7 cm in conglomerate on axial image 21. PLEURA: The pleural spaces are clear.HEART AND MEDIASTINUM: The thyroid is enlarged and diffusely heterogeneous with nodules which measure up to 2.6 cm. Given the extensive masses in the liver, no further imaging is necessary. Enlargedsubmental lymph nodes measure up to 1.1 cm [...] axial image 16. HEPATOBILIARY: The liver is enlarged.The hepatic masses were better seen on the [...] II, and III were better seen on theprior MRCP. SPLEEN: 17.4 cm splenomegaly.PANCREAS: No focal masses or ductal dilatation. ADRENALS: No adrenal nodules.KIDNEYS/URETERS: No hydronephrosis or masses. A right lower pole nonobstructing stone measures 3 mm.PELVIC ORGANS/ BLADDER: Unremarkable. PERITONEUM/RETROPERITONEUM: No free air or fluid. Several ventral hernias containing omental fat. The largest is in the periumbilical region and hasa peritoneal opening of 5.4 cm. LYMPH NODES: Periportal lymph node measures up to 1.9 cm in short axis dimension.VESSELS: Unremarkable. GI TRACT: Prior sigmoidectomy. Prior gastric [...] given the prior sigmoidectomy, if the patient hashad prior colon cancer, these could be metastases as well. 2.The precardiac lymph node is consistentwith metastatic disease, and the other prominent lymph nodes are concerning for metastatic disease. The prominent periportal lymph node measures up to 1.9 cm in short axis dimension and is indeterminate. 3.The three bilateral lung nodules which measure up to 1.7 cm are indeterminate but concerning formetastases. However, the morphology is slightly atypical for metastasis. 4.A right lower pole 3 mm stone is nonobstructing. Signed: Theron Goetz MDReport Verified Date/Time: 05/01/2018 08:50:31 Reading Location: [facility] Diagnostic Imaging Reading Room - [place] [address] POCT-GLUCOSE [id number] 08:41:00 Test Item Value Reference Range Comments POC-GLUCOSE METER (BEAKER) 120 mg/dL 70-110 TESTED AT [address] (test rcyf=4286) [facility] [address] BASIC METABOLIC [id number] 06:59:00 Test Item Value Reference Range Comments SODIUM (BEAKER) (test 135 meq/L 136-145 fqwf=564) POTASSIUM (BEAKER) (test 3.8 meq/L 3.5-5.1 ysgm=341) CHLORIDE (BEAKER) (test 101 meq/L 98-107 ezxa=542) CO2 (BEAKER) (test 27 meq/L 22-29 sthu=204) BLOOD UREA NITROGEN 12 mg/dL 7-21 (BEAKER) (test gufk=085) CREATININE (BEAKER) (test 0.80 mg/dL 0.57-1.25 vnmy=015) GLUCOSE RANDOM (BEAKER) 114 mg/dL 70-105 (test ynae=689) CALCIUM (BEAKER) (test 9.3 mg/dL 8.4-10.2 hgca=571) EGFR (BEAKER) (test 97 mL/min/1.73 sq m ESTIMATED GFR IS NOT vfle=3738) ACCURATE CREATININE CLEARANCE IN PREDICTING GLOMERULAR FILTRATION RATE. ESTIMATED GFR IS NOT APPLICABLE FOR DIALYSIS PATIENTS. Specimen moderately ictericC (HEMOGRAM ONLY)2018-05-01 06:20:00 Test Item Value Reference Range Comments WHITE BLOOD CELL COUNT (BEAKER) (test inug=830) 10.5 K/ L 3.5-10.5 RED BLOOD CELL COUNT (BEAKER) (test ukxx=696) 4.18 M/ L 4.63-6.08 HEMOGLOBIN (BEAKER) (test stjn=212) 11.5 GM/DL 13.7-17.5 HEMATOCRIT (BEAKER) (test kcpj=972) 36.9 % 40.1-51.0 MEAN CORPUSCULAR VOLUME (BEAKER) (test yzdl=088) 88.3 fL 79.0-92.2 MEAN CORPUSCULAR HEMOGLOBIN (BEAKER) (test 27.5 pg 25.7-32.2 zufh=115) MEAN CORPUSCULAR HEMOGLOBIN CONC (BEAKER) (test 31.2 GM/DL 32.3-36.5 cvdq=447) RED CELL DISTRIBUTION WIDTH (BEAKER) (test 16.5 % 11.6-14.4 hymc=698) PLATELET COUNT (BEAKER) (test dtxw=979) 293 K/CU MM 150-450 MEAN PLATELET VOLUME (BEAKER) (test igoo=033) 9.6 fL 9.4-12.4 NUCLEATED RED BLOOD CELLS (BEAKER) (test 0 /100 WBC 0-0 mzyl=701) POCT-GLUCOSE [id number] 22:21:00 Test Item Value Reference Range Comments POC-GLUCOSE METER (BEAKER) 141 mg/dL 70-[address] [facility] [address] [facility] (test ljje=9381) [facility] [address] POCT-GLUCOSE [id number] 17:29:00 Test Item Value Reference Range Comments POC-GLUCOSE METER (BEAKER) 174 mg/dL 70-[address] [facility] [address] [facility] (test tyrt=3599) [facility] [address] POCT-GLUCOSE [id number] 13:04:00 Test Item Value Reference Range Comments POC-GLUCOSE METER (BEAKER) 117 mg/dL 70-[address] [facility] [address] [facility] (test himm=9204) [facility] [address] MR, ABDOMEN, [id number] 12:29:00FINAL REPORT TECHNIQUE: MRI of the abdomen and MRCP WITHOUT intravenous contrast. 3-D volume reconstructions were obtained to evaluate the biliary ductal system. INDICATION : 68-year-old man with painless jaundice . COMPARISON: Outside abdomen and pelvis CT 04/27/2018. FINDINGS: ABSENCE OF INTRAVENOUS CONTRAST DECREASES SENSITIVITY FOR DETECTION OF FOCAL LESIONS AND VASCULAR PATHOLOGY. LOWER THORAX : Unremarkable. LIVER: Multiple T2 hyperintense masses throughout both lobes of the liver, the largest mass measures approximately 11.6 x 7 cm in segment IV. BILIARY: Prior cholecystectomy. Moderate intrahepatic biliary ductal dilatation throughout the right hepatic lobe with abruptcut off of the ducts in the region of the common hepatic duct adjacent to the largest liver mass in segment IV. Moderate intrahepatic biliary ductal dilatation in segment II/III with abrupt cut off of the ducts in the region of the segment IV mass. The common duct is not clearly identified.SPLEEN: Thespleen is enlarged, measuring 17 cm in greatest dimension.PANCREAS: The pancreatic head, neck, and body are not well evaluated secondary to artifact in this region. Scattered cystic lesions in the visualized portions of the pancreatic tail, the largest measures 0.8 x 1.3 cm. ADRENALS: No adrenal nodules.KIDNEYS/URETERS: No hydronephrosis or solid mass lesions. PERITONEUM/RETROPERITONEUM: No free fluid.LYMPH NODES: No lymphadenopathy.VESSELS: Unremarkable. GI TRACT: No distention or wall thickening. BONES AND SOFT TISSUES: Unremarkable. IMPRESSION:Multiple liver masses. Moderate intrahepatic biliary ductal dilatation throughout the right hepatic lobe and in segment II/III due to obstruction from the largest liver mass centered in segment IV. The common duct is not clearly identified. Involvement of the common duct by tumor cannot be excluded. Cystic lesions in the pancreatic tail measuring up to1.3 cm. Differential considerations include intraductal papillary mucinous neoplasm (IPMN) and pseudocyst. Splenomegaly. Signed: Tao Desai MDReport Verified Date/Time: 04/30/2018 12:29:35 Reading Location: [facility] B1 C013Y CT Body Reading Room POCT-GLUCOSE [id number] 07 :18:00 Test Item Value Reference Range Comments POC-GLUCOSE METER (BEAKER) 115 mg/dL 70-[address] [facility] [address] [facility] (test pcsz=4853) [facility] [address] COMPREHENSIVE METABOLIC [id number] 06:30:00 Test Item Value Reference Range Comments TOTAL PROTEIN (BEAKER) 7.6 gm/dL 6.0-8.3 (test oqnr=310) ALBUMIN (BEAKER) (test 3.6 g/dL 3.5-5.0 ofpu=8108) ALKALINE PHOSPHATASE 372 U/L 40-150 (BEAKER) (test yrzb=627) BILIRUBIN TOTAL (BEAKER) 9.1 mg/dL 0.2-1.2 (test stxl=274) SODIUM (BEAKER) (test 139 meq/L 136-145 qzta=194) POTASSIUM (BEAKER) (test 4.1 meq/L 3.5-5.1 ajtn=394) CHLORIDE (BEAKER) (test 104 meq/L 98-107 sjqh=132) CO2 (BEAKER) (test 26 meq/L 22-29 srxh=589) BLOOD UREA NITROGEN 13 mg/dL 7-21 (BEAKER) (test vgvx=148) CREATININE (BEAKER) (test 0.82 mg/dL 0.57-1.25 jszb=514) GLUCOSE RANDOM (BEAKER) 108 mg/dL 70-105 (test vkmu=092) CALCIUM (BEAKER) (test 9.8 mg/dL 8.4-10.2 dlnm=194) AST (SGOT) (BEAKER) (test 94 U/L 5-34 gxgt=098) ALT (SGPT) (BEAKER) (test 95 U/L 6-55 bxjj=337) EGFR (BEAKER) (test 94 mL/min/1.73 sq m ESTIMATED GFR IS NOT hcrf=2873) ACCURATE CREATININE CLEARANCE IN PREDICTING GLOMERULAR FILTRATION RATE. ESTIMATED GFR IS NOT APPLICABLE FOR DIALYSIS PATIENTS. Specimen moderately ictericCBC (HEMOGRAM ONLY)2018-04-30 05:17:00 Test Item Value Reference Range Comments WHITE BLOOD CELL COUNT (BEAKER) (test yhjr=514) 10.7 K/ L 3.5-10.5 RED BLOOD CELL COUNT (BEAKER) (test azjl=563) 4.39 M/ L 4.63-6.08 HEMOGLOBIN (BEAKER) (test awbk=892) 11.9 GM/DL 13.7-17.5 HEMATOCRIT (BEAKER) (test odfp=596) 39.1 % 40.1-51.0 MEAN CORPUSCULAR VOLUME (BEAKER) (test urtf=020) 89.1 fL 79.0-92.2 MEAN CORPUSCULAR HEMOGLOBIN (BEAKER) (test 27.1 pg 25.7-32.2 enny=293) MEAN CORPUSCULAR HEMOGLOBIN CONC (BEAKER) (test 30.4 GM/DL 32.3-36.5 rbsb=190) RED CELL DISTRIBUTION WIDTH (BEAKER) (test 16.3 % 11.6-14.4 lwlr=274) PLATELET COUNT (BEAKER) (test sgru=660) 310 K/CU MM 150-450 MEAN PLATELET VOLUME (BEAKER) (test hhhp=673) 9.6 fL 9.4-12.4 NUCLEATED RED BLOOD CELLS (BEAKER) (test 0 /100 WBC 0-0 yvot=320) POCT-GLUCOSE [id number] 20:46:00 Test Item Value Reference Range Comments POC-GLUCOSE METER (BEAKER) 217 mg/dL 70-[address] [facility] [address] [facility] (test uxhy=9404) [facility] [address] POCT-GLUCOSE [id number] 17:16:00 Test Item Value Reference Range Comments POC-GLUCOSE METER (BEAKER) 105 mg/dL 70-[address] [facility] [address] [facility] (test rirj=0503) [facility] [address] U/S, BIOPSY, [id number] 15:41:00Reason for exam:->MULTIPLE HYPODENSE LIVER LESIONSShould this be performed at the bedside?->NoFINAL REPORT Ultrasound guided liver biopsy. Clinical History: [...] the moderate sedation protocol under the supervision ofa physician. Moderate Sedation Time: 20 minutes. Technique: Using sterile technique, real-time ultrasound guidance and an 18 gauge core biopsy needle, a two pass core biopsy of the large mass effect inthe left lobe of the liver of the liver was performed. No immediate complications developed. Post procedure ultrasound demonstrates no hematoma. Patient disposition: The patient will be monitored for several hours to ensure that no symptoms develop. Impression: Successful core biopsy of the left lobe infiltrative liver mass under ultrasound guidance. Signed: Christian Vela Verified Date/Time: 04/29/2018 15:41:29 Reading Location: [address] Ultrasound Reading Room [id number] 09:40:00 Test Item Value Reference Range Comments PARTIAL THROMBOPLASTIN TIME (BEAKER) (test 37.0 seconds 22.5-36.0 ytkh=357) POCT-GLUCOSE [id number] 08:21:00 Test Item Value Reference Range Comments POC-GLUCOSE METER (BEAKER) 117 mg/dL 70-110 TESTED AT [address] (test olhr=5174) [place] [id number] POCT-GLUCOSE [id number] 21:41:00 Test Item Value Reference Range Comments POC-GLUCOSE METER (BEAKER) 144 mg/dL 70-110 TESTED AT [address] (test dnke=1456) [place] [address] RAD, CHEST, 1 VIEW, NON [id number] 17:38:00Reason for exam:->pacemaker locationShould this be performed at the bedside?->YesFINAL REPORT Chest, AP view. History: Pacemaker. Comparison: None available. Discussion: Dual lead left AICD present. Cardiomegaly. The lungs are clear without evidence of consolidation or effusion. There are no acute osseous abnormalities. The soft tissues are unremarkable.IMPRESSION: No acute cardiopulmonary abnormality. Signed: Gretta Watkins Verified Date/Time : 04/28/2018 17:38:47 Reading Location: [facility] C013X Ortho Consult Reading Room 05: 38 PMPOCT-GLUCOSE [id number] 17:19:00 Test Item Value Reference Range Comments POC-GLUCOSE METER (BEAKER) 129 mg/dL 70-[address] [facility] [address] [facility] (test zall=3361) [facility] [address] POCT-GLUCOSE [id number] 12:12:00 Test Item Value Reference Range Comments POC-GLUCOSE METER (BEAKER) 114 mg/dL 70-110 TESTED AT [place] [id number] [facility] (test dtwq=4153) [facility] [address] PROTHROMBIN [id number] 09:36:00 Test Item Value Reference Range Comments PROTIME (BEAKER) (test gddd=289) 14.4 seconds 11.7-14.7 INR (BEAKER) (test tdnf=132) 1.1 <=5.9 RECOMMENDED COUMADIN/WARFARIN INR THERAPY RANGESSTANDARD DOSE: 2.0 - 3.0 Includes: PROPHYLAXIS forvenous thrombosis, systemic embolization; TREATMENT for venous thrombosis and/or pulmonary embolus.HIGH RISK: Target INR is 2.5-3.5 for patients with mechanical heart valves.COMPREHENSIVE METABOLIC [id number] 09:19:00 Test Item Value Reference Range Comments TOTAL PROTEIN (BEAKER) 7.2 gm/dL 6.0-8.3 (test qmum=901) ALBUMIN (BEAKER) (test 3.5 g/dL 3.5-5.0 oaft=7353) ALKALINE PHOSPHATASE 373 U/L 40-150 (BEAKER) (test thxt=973) BILIRUBIN TOTAL (BEAKER) 8.3 mg/dL 0.2-1.2 (test qszx=363) SODIUM (BEAKER) (test 139 meq/L 136-145 fgvg=640) POTASSIUM (BEAKER) (test 3.6 meq/L 3.5-5.1 niwj=523) CHLORIDE (BEAKER) (test 105 meq/L 98-107 fvcu=600) CO2 (BEAKER) (test 26 meq/L 22-29 wmgm=547) BLOOD UREA NITROGEN 10 mg/dL 7-21 (BEAKER) (test savv=538) CREATININE (BEAKER) (test 0.75 mg/dL 0.57-1.25 holr=735) GLUCOSE RANDOM (BEAKER) 100 mg/dL 70-105 (test rerw=006) CALCIUM (BEAKER) (test 9.6 mg/dL 8.4-10.2 jdrc=418) AST (SGOT) (BEAKER) (test 102 U/L 5-34 hvdd=500) ALT (SGPT) (BEAKER) (test 107 U/L 6-55 utax=355) EGFR (BEAKER) (test 104 mL/min/1.73 sq ESTIMATED GFR IS NOT imme=2272) m ACCURATE CREATININE CLEARANCE IN PREDICTING GLOMERULAR FILTRATION RATE. ESTIMATED GFR IS NOT APPLICABLE FOR DIALYSIS PATIENTS. Specimen moderately ictericBILIRUBIN, [id number] 09:19:00 Test Item Value Reference Range Comments BILIRUBIN DIRECT (BEAKER) (test frsl=945) 6.4 mg/dL 0.1-0.5 CBC W/PLT COUNT & AUTO [id number] 09:01:00 Test Item Value Reference Range Comments WHITE BLOOD CELL COUNT (BEAKER) (test iugg=913) 9.5 K/ L 3.5-10.5 RED BLOOD CELL COUNT (BEAKER) (test qpug=419) 4.17 M/ L 4.63-6.08 HEMOGLOBIN (BEAKER) (test wdzd=934) 11.3 GM/DL 13.7-17.5 HEMATOCRIT (BEAKER) (test ihkq=199) 36.7 % 40.1-51.0 MEAN CORPUSCULAR VOLUME (BEAKER) (test brfi=210) 88.0 fL 79.0-92.2 MEAN CORPUSCULAR HEMOGLOBIN (BEAKER) (test 27.1 pg 25.7-32.2 wwtx=755) MEAN CORPUSCULAR HEMOGLOBIN CONC (BEAKER) (test 30.8 GM/DL 32.3-36.5 ccnw=895) RED CELL DISTRIBUTION WIDTH (BEAKER) (test 16.0 % 11.6-14.4 jnkv=492) PLATELET COUNT (BEAKER) (test wkoj=423) 280 K/CU MM 150-450 MEAN PLATELET VOLUME (BEAKER) (test ygml=786) 9.4 fL 9.4-12.4 NUCLEATED RED BLOOD CELLS (BEAKER) (test 0 /100 WBC 0-0 ojin=517) NEUTROPHILS RELATIVE PERCENT (BEAKER) (test 74 % tkvm=125) LYMPHOCYTES RELATIVE PERCENT (BEAKER) (test 12 % xrxb=180) MONOCYTES RELATIVE PERCENT (BEAKER) (test 11 % eyea=045) EOSINOPHILS RELATIVE PERCENT (BEAKER) (test 2 % nsqw=348) BASOPHILS RELATIVE PERCENT (BEAKER) (test 0 % czom=960) NEUTROPHILS ABSOLUTE COUNT (BEAKER) (test 7.06 K/ L 1.78-5.38 qkup=823) LYMPHOCYTES ABSOLUTE COUNT (BEAKER) (test 1.09 K/ L 1.32-3.57 tyur=544) MONOCYTES ABSOLUTE COUNT (BEAKER) (test 1.03 K/ L 0.30-0.82 efja=864) EOSINOPHILS ABSOLUTE COUNT (BEAKER) (test 0.23 K/ L 0.04-0.54 phym=731) BASOPHILS ABSOLUTE COUNT (BEAKER) (test 0.04 K/ L 0.01-0.08 lluj=068) IMMATURE GRANULOCYTES-RELATIVE PERCENT (BEAKER) 1 % 0-1 (test ixzd=6144) POCT-GLUCOSE [id number] 08:44:00 Test Item Value Reference Range Comments POC-GLUCOSE METER (BEAKER) 112 mg/dL 70-110 TESTED AT [address] (test sanr=4275) [facility] [address] HEPATITIS A [id number] 07:30:00 Test Item Value Reference Range Comments HEPATITIS A IGM ANTIBODY (BEAKER) (test Nonreactive Nonreactive nkjw=791) HEPATITIS A IGG ANTIBODY (BEAKER) (test Reactive Nonreactive ichn=2774) HEPATITIS B [id number] 06:38:00 Test Item Value Reference Range Comments HEPATITIS B CORE TOTAL ANTIBODY (BEAKER) (test Nonreactive Nonreactive cdxq=467) HEPATITIS B SURFACE ANTIBODY (BEAKER) (test < mIU/mL <8.0 vmav=004) HEPATITIS B SURFACE ANTIGEN (2) (BEAKER) (test Nonreactive Nonreactive yrgx=1850) CARCINOEMBRYONIC ANTIGEN (CEA)2018-04-28 05:59:00 Test Item Value Reference Range Comments CARCINOEMBRYONIC ANTIGEN (BEAKER) (test aexi=377) > ng/mL 0.0-5.0 ALPHA FETOPROTEIN (AFP), TUMOR [id number] 05:53:00 Test Item Value Reference Range Comments ALPHA-FETOPROTEIN (BEAKER) (test qgvq=0467) 2.3 ng/mL <10.0 HEPATITIS C [id number] 05:53:00 Test Item Value Reference Range Comments HEPATITIS C ANTIBODY (BEAKER) (test bmbi=487) Nonreactive Nonreactive
[2018-05-27] MEDS ORDERED: NA CHLORIDE 0.9% 500 ML ONE (18:21)
[2018-05-27 18:24] LABS: Absolute Lymphocytes (CBC) 1.7 K/uL (0.7-4.9); Absolute Monocytes 1.2 K/uL (0.1-1.3); Absolute Neutrophil 9.7 K/uL (1.8-8.0); Basophils % 0.6 % (0-1.3); Eosinophils % 3.2 % (0-4.4); Hematocrit 35.9 % (39.6-49.0); MPV 7.9 fL (7.6-11.3); Monocytes % 9.1 % (3.3-12.3); RBC Red Blood Cell Count 4.27 M/uL (4.33-5.43)
--- NOTE | 2018-05-27 18:36 | EKG ---
Test Date: 2018-05-27 Test Time: 17:47:18 Nitroglycerin Distributor: EDGAR MEASUREMENT RESULTS: Intervals: Rate: 64 NH: 194 QRSD: 96 QT: 438 QTc: 451 Sharon: P: 50 NH: 194 QRS: -4 T: 52 INTERPRETIVE STATEMENTS: Normal sinus rhythm Normal ECG Compared to ECG 04/27/2018 20:32:31 No significant changes Electronically Signed On 05-27-18 18:35:17 CORRECTIONAL THERAPY TEACHER by Robby Garduno
[2018-05-27 18:43] LABS: Albumin 2.9 g/dL (3.4-5.0); Bilirubin Total 1.6 mg/dL (0.2-1.0); Potassium 4.3 mmol/L (3.5-5.1); Protein, Total 8.5 g/dL (6.4-8.2)
--- NOTE | 2018-05-27 19:36 | RAD REPORT ---
EXAM DESCRIPTION: CT - Soft Tissue Neck Wo Contr - 05/27/2018 7:26 pm CLINICAL HISTORY: Dysphagia, decreasing appetite, colon cancer, hypertension TECHNIQUE: Axial 5 millimeter thick images of the neck were obtained without contrast All CT scans are performed using dose optimization technique as appropriate and may include automated exposure control or mA/KV adjustment according to patient size. FINDINGS: Mastoid air cells and paranasal sinuses are clear. No pharyngeal mucosal mass or asymmetry . No tonsillar or tongue base abnormality. Soft palate and epiglottis are unremarkable. No laryngeal abnormality seen. A few small nonspecific bilateral cervical lymph nodes are present. Parotid glands are unremarkable. Submandibular glands also unremarkable. There is an enlarged left lobe of the thyroid gland with an a pproximately 3 centimeter size nodule present. This extends substernal and is probably beyond the lori ch of fine-needle aspiration. No acute bone finding identifiable. Patient has extensive surgical change involving C5-T1. The anteri or fixation plate could have extrinsic mass effect on the esophagus. Patient also has very large ante rior endplate spurs and bridging ossification spanning C2-C4. This could also potentially cause sympt oms with swallowing. No abnormal air collection. Cervical canal is borderline stenotic at C3-4. Centr al canal detail is inherently limited. IMPRESSION: No pharyngeal mucosal mass or asymmetry. No tonsillar or tongue base abnormality seen. No abscess or abnormal soft tissue mass identifiable. Patient has very advanced degenerative change and postsurgical change in the cervical spine. The surg ical hardware and prominent anterior endplate spurs likely affect extrinsic mass effect on the esopha kalyani. This can be a source for symptoms.
--- NOTE | 2018-05-27 19:43 | RAD REPORT ---
EXAM DESCRIPTION: CT - Thorax Wo Con - 05/27/2018 7:28 pm CLINICAL HISTORY: Dysphagia, shortness of breath COMPARISON: CT abdomen imaging April 2018, CT chest December 2008 TECHNIQUE: Axial 5 mm thick images of the chest were obtained without IV contrast. All CT scans are performed using dose optimization technique as appropriate and may include automated exposure control or mA/KV adjustment according to patient size. FINDINGS: Small cluster of nodular opacities present in the lateral left upper lobe at the aortic ar ch level. These clustered nodules are each approximately 3 mm in size. A small 3 mm nodule is present in the right upper lobe (image 23/60). A 12 millimeter nodule is present in the posterior gutter on the right. No pleural thickening or pleural effusion. No pneumothorax. A 3.1 x 2.0 centimeter subcarinal lymph node is present. No other significant mediastinal or hilar ad enopathy. There is an abnormal 4.2 centimeter mass or lymph node in the right side pericardial fat fr actionally enlarged from April. No new or progressive pericardial thickening or effusion. No chest wall mass or abnormal axillary lymphadenopathy. An enlarged left thyroid nodule is present e stimated at 3 cm in size. Long-term significance is doubtful given the patient's other findings. Limited upper abdomen imaging shows extensive neoplastic involvement of the liver. This is only parti ally imaged on this study. IMPRESSION: No acute infiltrate identified. Patient has a few small areas of nodularity present. The 12 millimeter right posterior gutter nodule could be neoplastic. The other small less than 5 millim eter nodules are nonspecific. Malignant appearing mass or lymph node in the right pericardial fat and right subcarinal lymphadenopa thy progressive from comparison. Limited upper abdomen imaging shows extensive neoplastic involvement of the liver which is only parti ally imaged on this study.
--- NOTE | 2018-05-27 20:58 | ER ---
Nurse's Notes [facility] Name: Hill Tolliver Age: 68 yrs Sex: Male : 1950 Arrival Date: 05/27/2018 Time: 17:27 Bed 4 Private MD: Amol Massey Diagnosis: Dysphagia;Acute kidney failure;Dehydration Presentation: 05/27 17:30 Presenting complaint: states: "for about a week he has had no appetite and he is aa5 having trouble swallowing any solid food and even his pills". Pt denies sore throat, pt states "my throat is just dry". Pt also reports nausea and vomiting mucous. Pt's statates "we called his oncologist at [facility] (Beny Jaquez MD) and he said to bring him in". 17:30 Transition of care: patient was not received from another setting of care. Onset of aa5 symptoms was May 2018. Risk Assessment: Do you want to hurt yourself or someone else? Patient reports no desire to harm self or others. Care prior to arrival: None. 17:30 Method Of Arrival: Wheelchair aa5 17:30 Acuity: FRAN 2 aa5 17:39 Risk Assessment: Do you want to hurt yourself or someone else? Patient reports no hj desire to harm self or others. Initial Sepsis Screen: Does the patient meet any 2 criteria? No. Patient's initial sepsis screen is negative. Does the patient have a suspected source of infection? No. Patient's initial sepsis screen is negative. Care prior to arrival: None. Triage Assessment: 17:40 General: Appears in no apparent distress. uncomfortable. General: Behavior is calm, hj cooperative, appropriate for age. Pain: Denies pain. Historical: - Allergies: 17:30 No Known Allergies; aa5 - Home Meds: 17:30 carvedilol 12.5 mg Oral tab [Active]; gabapentin 300 mg Oral cap [Active]; glipizide 10 hj mg Oral tab [Active]; Invokana 100 mg Oral tab [Active]; nifedipine 60 mg Oral TbER [Active]; sulfamethoxazole-trimethoprim 400-80 mg Oral tab [Active]; - PMHx: 17:30 colon cancer; Colon and Liver cancer; aa5 17:30 Diabetes - NIDDM; Hypertension; lymphedema; Hernia; aa5 - PSHx: 17:30 Colon Resection; Cholecystectomy; aa5 - Immunization history:: Adult Immunizations not up to date. - Social history:: Smoking status: Patient/guardian denies using tobacco, Patient/guardian denies using alcohol, Patient/guardian denies using street drugs, The patient lives with family. - Ebola Screening: : Patient negative for fever greater than or equal to 101.5 degrees Fahrenheit, and additional compatible Ebola Virus Disease symptoms Patient denies exposure to infectious person Patient denies travel to an Ebola-affected area in the 21 days before illness onset No symptoms or risks identified at this time. - Family history:: not pertinent. Screenin:39 Abuse screen: Denies threats or abuse. Denies injuries from another. Nutritional hj screening: No deficits noted. Tuberculosis screening: No symptoms or risk factors identified. Fall Risk Secondary diagnosis (15 points). Assessment: 17:30 General: Appears in no apparent distress. uncomfortable, Behavior is calm, cooperative, hj appropriate for age. Pain: Complains of pain in throat. Neuro: Level of Consciousness is awake, alert, obeys commands, Oriented to person, place, time, situation, Appropriate for age. Cardiovascular: Capillary refill < 3 seconds Patient's skin is warm and dry. Respiratory: Airway is patent Respiratory effort is even, unlabored, Respiratory pattern is regular, symmetrical. GI: Abdomen is non-distended, with a drain coming from liver attached to leg bag;. : No signs and/or symptoms were reported regarding the genitourinary system. EENT: No signs and/or symptoms were reported regarding the EENT system. Derm: No signs and/or symptoms reported regarding the dermatologic system. Musculoskeletal: No signs and/or symptoms reported regarding the musculoskeletal system. 18:27 Reassessment: Patient and/or family updated on plan of care and expected duration. Pain hj level reassessed. Patient is alert, oriented x 3, equal unlabored respirations, skin warm/dry/pink. family in room; awaiting results and POC:. 18:34 Reassessment: SBP below 100's; MD aware;. hj 18:53 Reassessment: wound care and band aid in place at L forearm;. hj 20:12 Reassessment: Patient appears in no apparent distress at this time. No changes from ak1 previously documented assessment. Patient and/or family updated on plan of care and expected duration. Pain level reassessed. Patient is alert, oriented x 3, equal unlabored respirations, skin warm/dry/pink. Patient states feeling better. 21:52 Reassessment: Patient appears in no apparent distress at this time. No changes from ak1 previously documented assessment. Patient and/or family updated on plan of care and expected duration. Pain level reassessed. Patient is alert, oriented x 3, equal unlabored respirations, skin warm/dry/pink. pt resting with eyes closed. will continue to monitor. Vital Signs: 17:30 BP 88 / 62; Pulse 67; Resp 20 S; Temp 98.1(O); Pulse Ox 100% on R/A; Weight 117.93 kg; hj Height 5 ft. 10 in. (177.80 cm); 17:57 BP 86 / 49; Pulse 64; Resp 18; Pulse Ox 100% ; hj 18:27 BP 90 / 50; Pulse 63; Resp 18; Pulse Ox 99% on R/A; hj 18:35 BP 86 / 40; Pulse 63; Resp 18; Pulse Ox 100% on R/A; hj 18:49 BP 103 / 63; Pulse 63; Resp 18; Pulse Ox 100% on R/A; hj 20:12 BP 103 / 56; Pulse 62; Resp 16; Temp 98.1; Pulse Ox 99% on R/A; ak1 21:53 BP 95 / 55; Pulse 62; Resp 16; Temp 98.2; Pulse Ox 99% on R/A; ak1 17:30 Body Mass Index 37.31 (117.93 kg, 177.80 cm) ED Course: 17:27 Patient arrived in ED. mr 17:28 Amol Massey DO is Private Physician. mr 17:30 Arm band placed on Patient placed in an exam room, on a stretcher. aa5 17:39 Dominic Corado, CHRIS is Primary Nurse. hj 17:40 Triage completed. aa5 17:41 Patient has correct armband on for positive identification. Placed in gown. Bed in low hj position. Call light in reach. Side rails up X 1. 17:53 Shirley Yanez MD is Attending Physician. ma2 18:07 EKG done, by substation technician. reviewed by Damien Ashby MD. sm3 18:13 Radiology exam delayed due to lab results not completed at this time. (BUN/Creatinine). vm2 18:17 Initial lab(s) drawn, by me, sent to lab. Inserted saline lock: 22 gauge in right jb1 forearm, using aseptic technique. Blood collected. 18:33 Radiology exam delayed due to lab results not completed at this time. (BUN/Creatinine). vm2 18:43 Radiology exam delayed due to lab results not completed at this time. (BUN/Creatinine). vm2 19:[address] vm2 19:25 CT completed. Patient tolerated procedure well. Patient moved back from CT. vm2 19:26 Soft Tissue Neck Wo Contr In Process Unspecified. EDMS 19:26 Thorax Wo Con In Process Unspecified. EDMS 21:53 No provider procedures requiring assistance completed. Patient transferred, IV remains ak1 in place. Administered Medications: 18:07 Drug: NS 0.9% 500 ml Route: IV; Rate: 1 bolus; Site: right forearm; 21:03 Follow up: IV Status: Completed infusion ak1 Outcome: 20:57 ER care complete, transfer ordered by . [facility] 21:54 Transferred by ground EMS to [facility], Transfer form completed. ak1 X-rays sent w/ patient. Note: report given to Mikaela the nurse for 734 on the 7th Gary 21:54 Condition: stable 21:54 Instructed on the need for transfer. 22:31 Patient left the ED. ak1 Signatures: Dispatcher [employer] EDMS Art Zuñiga 1 TeeRadha mr AlexSpring RN RN aa5 Adrianne Ayala RN RN ak1 Dominic Corado RN RN hj McGuire, Victoria 2 Shirley Yanez MD MD mn2 Jyoti Villa 3 Corrections: (The following items were deleted from the chart) 17:42 17:20 Arm band placed on Patient placed in an exam room, on a stretcher, [facility]5 17:43 17:20 Ebola Screening: No symptoms or risks identified at this time aa5 [facility] 17:43 17:30 BP 88 / 62; Pulse 67bpm; Resp 20bpm; Spontaneous; aa5 aa5 17:44 17:20 Allergies: No Known Allergies; aa5 aa5 17:20 PMHx: Diabetes - NIDDM; aa5 aa5 17:20 PMHx: Hernia; aa5 aa5 17:20 PMHx: Hypertension; aa5 aa5 17:20 PMHx: lymphedema; aa5 aa5 17:20 PMHx: Colon and Liver Cancer; aa5 aa5 17:20 PSHx: Colon Resection; aa5 aa5 17:20 PSHx: Cholecystectomy; aa5 aa5 18:28 17:30 BP 88 / 62; Pulse 67bpm; Resp 20bpm; Spontaneous; Pulse Ox 100% RA; aa5 hj
--- NOTE | 2018-05-27 20:58 | EDPHYS ---
Physician Documentation [facility] Name: Hill Tolliver Age: 68 yrs Sex: Male : 1950 Arrival Date: 05/27/2018 Time: 17:27 Bed 4 Private MD: Amol Massey ED Physician Shirley Yanez HPI: 05/27 18:26 This 68 yrs old Male presents to ER via Wheelchair with complaints of ma2 Difficulty Swallowing. 18:26 The patient presents with dysphagia. The patient describes throat pain as no pain just ma2 difficulty swallowing . Onset: The symptoms/episode began/occurred gradually, 1 month(s) ago. Severity of symptoms: At their worst the symptoms were moderate, in the emergency department the symptoms are unchanged. The patient has not experienced similar symptoms in the past. difficulty swallowing solids, able to drink water . Historical: - Allergies: 17:30 No Known Allergies; aa5 - Home Meds: 17:30 carvedilol 12.5 mg Oral tab [Active]; gabapentin 300 mg Oral cap [Active]; glipizide 10 hj mg Oral tab [Active]; Invokana 100 mg Oral tab [Active]; nifedipine 60 mg Oral TbER [Active]; sulfamethoxazole-trimethoprim 400-80 mg Oral tab [Active]; - PMHx: 17:30 colon cancer; Colon and Liver cancer; aa5 17:30 Diabetes - NIDDM; Hypertension; lymphedema; Hernia; aa5 - PSHx: 17:30 Colon Resection; Cholecystectomy; aa5 - Immunization history:: Adult Immunizations not up to date. - Social history:: Smoking status: Patient/guardian denies using tobacco, Patient/guardian denies using alcohol, Patient/guardian denies using street drugs, The patient lives with family. - Ebola Screening: : Patient negative for fever greater than or equal to 101.5 degrees Fahrenheit, and additional compatible Ebola Virus Disease symptoms Patient denies exposure to infectious person Patient denies travel to an Ebola-affected area in the 21 days before illness onset No symptoms or risks identified at this time. - Family history:: not pertinent. ROS: 18:26 Constitutional: Negative for fever, chills, and weight loss. ma2 18:26 Abdomen/GI: Positive for dysphagia, Negative for nausea, diarrhea, constipation, rectal pain, acute changes. 18:26 All other systems are negative. Exam: 18:26 Constitutional: This is a well developed, well nourished patient who is awake, alert, ma2 and in no acute distress. ENT: Nares patent. No nasal discharge, no septal abnormalities noted. Tympanic membranes are normal and external auditory canals are clear. Oropharynx with no redness, swelling, or masses, exudates, or evidence of obstruction, uvula midline. Mucous membranes moist. Chest/axilla: Normal chest wall appearance and motion. Nontender with no deformity. No lesions are appreciated. Cardiovascular: Regular rate and rhythm with a normal S1 and S2. No gallops, murmurs, or rubs. Normal PMI, no JVD. No pulse deficits. Respiratory: Lungs have equal breath sounds bilaterally, clear to auscultation and percussion. No rales, rhonchi or wheezes noted. No increased work of breathing, no retractions or nasal flaring. Abdomen/GI: Soft, non-tender, with normal bowel sounds. No distension or tympany. No guarding or rebound. No evidence of tenderness throughout. Neuro: Awake and alert, GCS 15, oriented to person, place, time, and situation. Cranial nerves II-XII grossly intact. Motor strength 5/5 in all extremities. Sensory grossly intact. Cerebellar exam normal. Normal gait. Vital Signs: 17:30 BP 88 / 62; Pulse 67; Resp 20 S; Temp 98.1(O); Pulse Ox 100% on R/A; Weight 117.93 kg; hj Height 5 ft. 10 in. (177.80 cm); 17:57 BP 86 / 49; Pulse 64; Resp 18; Pulse Ox 100% ; hj 18:27 BP 90 / 50; Pulse 63; Resp 18; Pulse Ox 99% on R/A; hj 18:35 BP 86 / 40; Pulse 63; Resp 18; Pulse Ox 100% on R/A; hj 18:49 BP 103 / 63; Pulse 63; Resp 18; Pulse Ox 100% on R/A; hj 20:12 BP 103 / 56; Pulse 62; Resp 16; Temp 98.1; Pulse Ox 99% on R/A; ak1 21:53 BP 95 / 55; Pulse 62; Resp 16; Temp 98.2; Pulse Ox 99% on R/A; ak1 17:30 Body Mass Index 37.31 (117.93 kg, 177.80 cm) MDM: 17:53 Patient medically screened. ma2 18:28 Differential diagnosis: squamous cell carcinoma tonsillitis, tracheobronchitis, upper ma2 respiratory infection. 20:54 Data reviewed: vital signs, nurses notes. Counseling: I had a detailed discussion with nc2 the patient and/or guardian regarding: the historical points, exam findings, and any diagnostic results supporting the discharge/admit diagnosis, the presence of at least one elevated blood pressure reading (>120/80) during this emergency department visit, the need to transfer to another facility. Response to treatment: the patient's symptoms have mildly improved after treatment. ED course: needs to be admitted for ARF dehydration dysphagia, need endoscopy no gi available in our hospital, discussed with dr. pozo who recommends transfer . ED course: accepted by dr. zafar . 05/27 18:06 Order name: CBC with Diff; Complete Time: 19:33 [facility] 05/27 18:06 Order name: CMP; Complete Time: 19:33 [facility] 05/27 19:06 Order name: Soft Tissue Neck Wo Contr; Complete Time: 20:11 [facility] 05/27 19:06 Order name: Thorax Wo Con; Complete Time: 20:11 [facility] 05/27 17:55 Order name: EKG; Complete Time: 17:55 Administered Medications: 18:07 Drug: NS 0.9% 500 ml Route: IV; Rate: 1 bolus; Site: right forearm; 21:03 Follow up: IV Status: Completed infusion ak1 Disposition: 05/27/18 20:57 Transfer ordered to [facility]. Diagnosis are Dysphagia, Acute kidney failure, Dehydration. - Reason for transfer: Higher level of care. - Accepting physician is Dr. Zafar . - Condition is Critical. - Problem is new. - Symptoms are unchanged. Signatures: Dispatcher [employer] Spring Kirby RN RN penny5 Adrianne Ayala RN RN ak1 Dominic Corado RN RN Shirley Yanez MD MD ma2 Corrections: (The following items were deleted from the chart) 17:43 17:20 Ebola Screening: No symptoms or risks identified at this time yohana muller 17:44 17:20 Allergies: No Known Allergies; aa5 aa5 :44 17:20 PMHx: Diabetes - NIDDM; aa5 aa5 17:20 PMHx: Hernia; aa5 aa5 17:20 PMHx: Hypertension; aa5 aa5 44 17:20 PMHx: lymphedema; aa5 aa5 :44 17:20 PMHx: Colon and Liver Cancer; aa5 aa5 17:20 PSHx: Colon Resection; aa5 aa5 44 17:20 PSHx: Cholecystectomy; aa5 aa5 19:06 18:07 Soft Tissue Neck W/Contr+CT.RAD.BRZ ordered. EDMS EDMS 19:06 18:07 Thorax W/ Con+CT.RAD.BRZ ordered. EDMS EDMS 22:31 20:57 05/27/2018 20:57 Transfer ordered to [facility]. Diagnosis is ak1 Dysphagia; Acute kidney failure; Dehydration. Reason for transfer: Higher level of care. Accepting physician is Dr. Zafar . Condition is Critical. Problem is new. Symptoms are unchanged. ma2
== END 2018-05-27 22:31 | disposition short-term general hospital (02) ==
LOC: ER 17:24
DX: N17.9 Acute kidney failure, unspecified (principal); E86.0 Dehydration; I10 Essential (primary) hypertension; E11.9 Type 2 diabetes mellitus without complications; Z85.05 Personal history of malignant neoplasm of liver; Z85.038 Personal history of other malignant neoplasm of large intestine
CPT/HCPCS: 36415; 70490; 71250; 80053; 85025; 93005; 96360; 96361; 99285